=== PATIENT | male | born 1965 | race Caucasian/White ===

== ENCOUNTER 2020-05-04 08:45 | Outpatient (REF) | payer MEDICARE, MEDICAID, SELFPAY ==
--- NOTE | 2020-05-04 | XR_ITS ---
EXAMINATION: XR HIP, RIGHT XR HIP, LEFT CLINICAL INFORMATION: Bilateral hip pain. COMPARISON: None TECHNIQUE: Each hip is imaged in AP and lateral projections. There are 2 views on each side, total of 4 views. FINDINGS: There are bilateral hip replacements with bilateral longstem femoral component extending beyond the film [id number]. The visualized hardware appears intact. There is no fracture, dislocation, destructive process, or osteolysis. Surgical clips are present adjacent to the greater trochanters on each side. The soft tissue planes appear grossly symmetric. There are probable degenerative changes lumbosacral junction and borderline osteitis pubis. Bony pelvis otherwise unremarkable. XR/XR hip LT min 2V IMPRESSION: 1. Bilateral hip replacements. Visualized hardware intact. No osteolysis. No destructive process. 2. Degenerative changes lumbosacral spine. Borderline osteitis pubis.
--- NOTE | 2020-05-04 | US_ITS ---
EXAMINATION: US ABDOMEN COMPLETE CLINICAL INFORMATION: Abnormal results of liver function studies. COMPARISON: None TECHNIQUE: Real-time imaging of the abdominal viscera. FINDINGS: PANCREAS: Normal. ABDOMINAL AORTA: The proximal, mid, and distal segments are normal in caliber. INFERIOR VENA CAVA: Visualized portions are normal. LIVER: The liver is normal in size. The liver contour is normal. There is increased liver echogenicity with no focal lesion seen. There is no intrahepatic biliary duct dilatation seen. GALLBLADDER: Normal. The gallbladder is physiologically distended without evidence of stones, sludge, polyps, wall thickening, or pericholecystic fluid. COMMON BILE DUCT: Normal in caliber measuring 0.3 cm in diameter. RIGHT KIDNEY: Normal. No hydronephrosis. No renal calculi or focal parenchymal lesions. The kidney measures 11.1 cm in maximum dimension. LEFT KIDNEY: There or anechoic cysts. Upper pole cyst measures 1.4 x 1.3 x 1.3 cm and a midpole cyst measures 0.9 x 0.9 x 0.7 cm. No hydronephrosis or renal calculi. The kidney measures 11.1 cm in maximum dimension. SPLEEN: Normal. The spleen measures 11.7 cm in maximum dimension. FREE FLUID: None. US/US abdomen complete IMPRESSION: 1. Hepatic steatosis without focal lesion. 2. There are 2 left renal cysts. No echogenic renal calculi or hydronephrosis. 3. The rest of the abdominal ultrasound is unremarkable.
--- NOTE | 2020-05-04 | XR_ITS ---
EXAMINATION: XR HIP, RIGHT XR HIP, LEFT CLINICAL INFORMATION: Bilateral hip pain. COMPARISON: None TECHNIQUE: Each hip is imaged in AP and lateral projections. There are 2 views on each side, total of 4 views. FINDINGS: There are bilateral hip replacements with bilateral longstem femoral component extending beyond the film [id number]. The visualized hardware appears intact. There is no fracture, dislocation, destructive process, or osteolysis. Surgical clips are present adjacent to the greater trochanters on each side. The soft tissue planes appear grossly symmetric. There are probable degenerative changes lumbosacral junction and borderline osteitis pubis. Bony pelvis otherwise unremarkable. XR/XR hip RT min 2V IMPRESSION: 1. Bilateral hip replacements. Visualized hardware intact. No osteolysis. No destructive process. 2. Degenerative changes lumbosacral spine. Borderline osteitis pubis.
== END 2020-05-04 08:46 | disposition home or self-care (01) ==
LOC: HO.HMGCX 08:45
PROVIDERS: PCP Internal Medicine; Visit Provider Internal Medicine
DX: M25.551 Pain in right hip (principal); M25.552 Pain in left hip
CPT/HCPCS: 73502; 76700

== ENCOUNTER 2022-08-20 16:54 | Outpatient (REF) | payer MEDICARE, MEDICAID, SELFPAY ==
--- NOTE | ~2022-08-20 | XR_ITS ---
EXAMINATION: XR ANKLE, RIGHT CLINICAL INFORMATION: Right ankle pain COMPARISON: None available. TECHNIQUE: AP, lateral, and mortise views of the right ankle. FINDINGS: Moderate talocrural osteoarthritis. Resection of the fibula proximal to the lateral malleolus. No acute osseous abnormality. Diffuse vascular calcifications. XR/XR ankle RT min 3V IMPRESSION: Moderate talocrural osteoarthritis. No acute osseous abnormality.
== END 2022-08-20 16:55 | disposition home or self-care (01) ==
LOC: HO.HOSX 16:54
PROVIDERS: Visit Provider Physician Assistant
DX: Z13.89 Encounter for screening for other disorder (principal)

== ENCOUNTER → 2022-08-30 10:43 | Outpatient (BNVA) | payer MEDICARE, MEDICAID, SELFPAY | PROVIDERS: PCP Internal Medicine; Visit Provider Orthopaedic Surgery | DX: G95.9 Disease of spinal cord, unspecified (principal); R27.9 Unspecified lack of coordination | CPT/HCPCS: 73610; 99202 ==

== ENCOUNTER → 2022-10-05 11:23 | Outpatient (BNVA) | payer MEDICARE, MEDICAID, SELFPAY | PROVIDERS: PCP Internal Medicine; Visit Provider Orthopaedic Surgery | DX: G95.9 Disease of spinal cord, unspecified (principal); R27.9 Unspecified lack of coordination | CPT/HCPCS: 99202; 99212 ==

== ENCOUNTER 2022-10-08 14:42 | Outpatient (REF) | payer MEDICARE, MEDICAID, SELFPAY ==
--- NOTE | ~2022-10-08 | US_ITS ---
EXAMINATION: US VENOUS ULTRASOUND WITH DOPPLER LOWER EXTREMITY, RIGHT CLINICAL INFORMATION: Pain COMPARISON: None available. TECHNIQUE: Ultrasound of the deep veins is performed from the hip to the calf with compression sonography and color and pulse Doppler assessment. Spectral analysis with color-flow imaging is performed. FINDINGS: There is normal venous compression and respiratory variation and augmented flow. The visualized common femoral vein, superficial femoral vein, profunda femoral vein, popliteal vein, and popliteal veins shows no evidence of deep venous thrombosis. Peroneal veins not well visualized. There is no significant popliteal fossa cyst. US/US venous duplex LE RT IMPRESSION: No DVT demonstrated in the right lower extremity. Peroneal veins not well visualized.
== END 2022-10-08 14:43 | disposition home or self-care (01) ==
LOC: HO.US 14:42
PROVIDERS: PCP Internal Medicine; Visit Provider Internal Medicine
DX: R60.0 Localized edema (principal)
CPT/HCPCS: 93971

== ENCOUNTER 2022-10-12 15:12 | Outpatient (REF) | payer MEDICARE, MEDICAID, SELFPAY ==
--- NOTE | ~2022-10-12 | CT_ITS ---
EXAMINATION: CT CERVICAL SPINE WITHOUT CONTRAST CLINICAL INFORMATION: Disease of the spinal cord. COMPARISON: CT scan of the cervical spine dated 02/19/2009. TECHNIQUE: Multiple axial images of the cervical spine were obtained without the administration of intravenous contrast. Coronal and sagittal reformatted images were obtained. This CT examination was performed using dose optimization techniques as appropriate, variously including the following: *Automated exposure control *Adjustment of mA and/or kV according to patient size (this includes techniques or standardized protocols for targeted exams where dose is matched to indication/reason for exam; i.e. extremities or head) *Use of iterative reconstruction technique DLP: 469 mGy-cm FINDINGS: Mild to moderate multilevel degenerative disc disease is seen most pronounced at C4-5 and C6-7. Osseous fusion of C5 and C6 is seen without acute abnormality. The vertebral bodies and odontoid processes are intact. Mild odontoid are particular degenerative changes are seen. The neural foramina are patent. Mild bilateral facet nephropathy is seen. The spinous processes are intact. Incidental elongated styloid processes are noted. The cervical soft tissues are unremarkable. Mild to moderate atherosclerosis at the level the carotid bulbs bilaterally. No lymphadenopathy. The visualized thyroid gland is unremarkable. Minimal visualization of the lung apices with pleural thickening and scarring. CT/CT cervical spine wo IV con IMPRESSION: Mild to moderate multilevel degenerative changes without acute abnormality. Degenerative changes have increased since the 2008 study.
== END 2022-10-12 15:13 | disposition home or self-care (01) ==
LOC: HO.CT 15:12
PROVIDERS: PCP Internal Medicine; Visit Provider Physician Assistant
DX: G95.9 Disease of spinal cord, unspecified (principal)
CPT/HCPCS: 72125

== ENCOUNTER 2022-10-16 06:00 | Inpatient (IN) | payer MEDICARE, MEDICAID, SELFPAY ==
--- NOTE | 2022-10-15 13:38 | HO.ANESPROP2 ---
Documented by User: Una Noe NP 10/15/22 13:41 HPI - Anesthesia Eval Consult details Narrative: 57yo M for C3-4,C4-5 Ant Cerv Discectomy w/ fusion PCP eval 10/12/22 - benefits of surgery outweigh risks - Case reviewed with Dr Bryant and Dr Waqas. VO for eval DOS. PMFSH Active Problems Active Problems: All Active Problems (Updated 10/05/22 @ 13:46 by ITZEL Burch) Swelling of lower leg (Acute) Cervical myelopathy (Acute) Unspecified lack of coordination (Acute) Lumbar radiculopathy (Acute) Past Medical History Medical History (Updated 10/16/22 @ 15:48 by Judson Wick MD) Diabetes ETOH abuse Fusion of spine, cervical region High cholesterol HTN (hypertension) Hyperlipidemia associated with type 2 diabetes mellitus Spinal cord injury, cervical region Type 2 diabetes mellitus Urinary incontinence Surgical History Surgical History History of back surgery Hx of hand surgery Hx of total hip arthroplasty Social History Social History (Updated 08/30/22 @ 10:54 by Nolvia Barnes CMA) Household Members: Significant Other Housing: Apartment Do you presently have visiting nurse or other home services: No Alcohol intake: current Alcohol intake frequency: holidays/special occasions only Patient Tobacco Use Status: Former Tobacco user Quit Date: 25 yrs ago Tobacco use type: Cigarette Years Smoked: 20 Use of substances other than those prescribed or required for medical reasons: No Have you been hit, kicked, punched, or otherwise hurt by someone within the past year? If so, by whom?: No Do you feel safe in your current relationship?: Yes Is there a partner from a previous relationship who is making you feel unsafe now?: No Are you made to feel afraid or neglected: No Are you DNR?: No Advance Directives: No Advance Directives Information Provided: Yes Do you have thoughts of harming others: None Recently lost weight without trying: No Nutrition Risks: Diabetes new onset/Uncontrolled Current occupational status: unemployed Meds Allergies Allergy/AdvReac Type Severity Reaction Status Date / Time Seasonal Allergy Mild Sneezing Uncoded 10/16/22 06:12 Home Medications Medication Instructions Recorded Confirmed Last Taken Type atorvastatin 80 mg tablet 80 mg PO BEDTIME 10/16/22 10/16/22 Unknown History cholecalciferol (vitamin D3) 25 25 mcg PO DAILY 10/16/22 10/16/22 Unknown History mcg (1,000 unit) tablet dulaglutide 0.75 mg/0.5 mL 0.75 mg subcut QWEEK 10/16/22 10/16/22 Unknown History subcutaneous pen injector (Trulicity) lisinopril 20 mg tablet 20 mg PO DAILY 10/16/22 10/16/22 Unknown History metformin 1,000 mg tablet 1,000 mg PO BID 10/16/22 10/16/22 Unknown History Exam Exam Date and Time: October 15, 2022 1338 Narrative Narrative: US venous duplex LE RT 10/2022 IMPRESSION: No DVT demonstrated in the right lower extremity. Peroneal veins not well visualized. CT cervical spine wo IV con 10/2022 IMPRESSION: Mild to moderate multilevel degenerative changes without acute abnormality. Degenerative changes have increased since the 2008 study. Documented by User: Corona Bishop MD 10/16/22 17:22 HPI - Anesthesia Eval Consult details Narrative: 57yo M for C3-4,C4-5 Ant Cerv Discectomy w/ fusion PCP eval 10/12/22 - benefits of surgery outweigh risks - Case reviewed with Dr Bryant and Dr Bishop. OK for eval DOS. no Chest pain , poorly controlled DM neck pain with radiation to b/l UE with tingling and numbness left greater than right , progressive, balance problem and b/l LE weakness . ETOH , 6 packs a day PMFSH Past Medical History Medical History (Updated 10/16/22 @ 15:48 by Judson Wick MD) Diabetes ETOH abuse Fusion of spine, cervical region High cholesterol HTN (hypertension) Hyperlipidemia associated with type 2 diabetes mellitus Spinal cord injury, cervical region Type 2 diabetes mellitus Urinary incontinence Functional capacity: uses cane/walker Family History Family history of problems with anesthesia: No Surgical History Surgical History History of back surgery Hx of hand surgery Hx of total hip arthroplasty History of Problems with Anesthesia: No Social History Social History (Updated 08/30/22 @ 10:54 by Nolvia Barnes CMA) Household Members: Significant Other Housing: Apartment Do you presently have visiting nurse or other home services: No Alcohol intake: current Alcohol intake frequency: holidays/special occasions only Patient Tobacco Use Status: Former Tobacco user Quit Date: 25 yrs ago Tobacco use type: Cigarette Years Smoked: 20 Use of substances other than those prescribed or required for medical reasons: No Have you been hit, kicked, punched, or otherwise hurt by someone within the past year? If so, by whom?: No Do you feel safe in your current relationship?: Yes Is there a partner from a previous relationship who is making you feel unsafe now?: No Are you made to feel afraid or neglected: No Are you DNR?: No Advance Directives: No Advance Directives Information Provided: Yes Do you have thoughts of harming others: None Recently lost weight without trying: No Nutrition Risks: Diabetes new onset/Uncontrolled Current occupational status: unemployed Meds Allergies Allergy/AdvReac Type Severity Reaction Status Date / Time Seasonal Allergy Mild Sneezing Uncoded 10/16/22 06:12 Home Medications Medication Instructions Recorded Confirmed Last Taken Type atorvastatin 80 mg tablet 80 mg PO BEDTIME 10/16/22 10/16/22 Unknown History cholecalciferol (vitamin D3) 25 25 mcg PO DAILY 10/16/22 10/16/22 Unknown History mcg (1,000 unit) tablet dulaglutide 0.75 mg/0.5 mL 0.75 mg subcut QWEEK 10/16/22 10/16/22 Unknown History subcutaneous pen injector (Trulicity) lisinopril 20 mg tablet 20 mg PO DAILY 10/16/22 10/16/22 Unknown History metformin 1,000 mg tablet 1,000 mg PO BID 10/16/22 10/16/22 Unknown History Exam Airway Mallampati Class: IV Neck ROM: Limited Loose/Missing/Broken Teeth: Yes Assessment and Plan Assessment Anesthesia Assessment: Anesthesia Plan Discussed and Chart Reviewed Final Anesthetic Review Family History of Problems with Anesthesia: No History of Problems with Anesthesia: No NPO: Yes ASA Class: III (urgent) Final Preanesthetic Review: Meds/Allgs Chart Reviewed, Consent Obtained/Reviewed and Anes Risks/Benef Reviewed Patient Risk: High Procedure Risk: Intermediate Anesthetic Plan Anesthetic Plan: GA Disposition: Inp. Admit - ICU
[2022-10-16] VITALS (19 sets, daily range): BP systolic 107–157; BP diastolic 47–88; PULSE 71–100; RESP 12–21; TEMP 36.3–37.2; O2SAT 94–98; BMI 28.5
--- NOTE | ~2022-10-16 | XR_ITS ---
EXAMINATION: XR ANKLE, RIGHT CLINICAL INFORMATION: Right ankle pain. COMPARISON: Right ankle 08/30/2022 TECHNIQUE: AP, lateral, and mortise views of the right ankle. FINDINGS: There is resection of fibula except for the distal segment. There is minimal reduction in the tibiotalar joint and talar crural space consistent with degenerative arthritic changes. There is a small retrocalcaneal enthesophyte. The subtalar joint appears preserved. No acute fracture or dislocation seen. There is bimalleolar soft tissue swelling. XR/XR ankle RT 2V IMPRESSION: Bimalleolar soft tissue swelling likely edema from sprain. No visible fracture or dislocation. Mild degenerative changes talotibial joint Except for soft tissue is no major change from 08/30/2022.
--- NOTE | ~2022-10-16 | FL_ITS ---
EXAMINATION: XR FLUOROSCOPY WITH IMAGES CLINICAL INFORMATION: Anterior cervical discectomy and fusion C3 through C5. COMPARISON: CT cervical spine of 10/12/2022. TECHNIQUE: Fluoroscopy Supervised By: Dr. Elmore. Fluoroscopy Time: 0.4 minutes. Cumulative Dose: 10.5 mGy. DAP: 2.36 Gy-cm2. Images: 2. FINDINGS: Intraoperative fluoroscopy provided demonstrating cervical spine procedure with hardware placement. Levels of procedure with limited evaluation on the 2 provided images. FL/FL guidance in OR IMPRESSION: Intraoperative fluoroscopy for orthopedic procedure.
--- NOTE | ~2022-10-16 | XR_ITS ---
EXAMINATION: XR CERVICAL SPINE CLINICAL INFORMATION: Status post corpectomy and fusion. COMPARISON: CT cervical spine 10/12/2022. TECHNIQUE: 3 views of the cervical spine were obtained. FINDINGS: There is mild straightening of cervical lordosis. There is C4 corpectomy with a metallic cage between the C3 and C5 vertebra, stabilized with a ventral plate and screws in satisfactory alignment. In addition there is a zero profile prosthesis at the C5-C6 disc level. There is osseous C5-C6 fusion. No lytic or sclerotic process seen. XR/XR cervical spine 2V IMPRESSION: 1. C4 corpectomy with metallic cage between the C3 and C5 vertebra stabilized with ventral plate and screws. In addition there is a zero profile prosthesis at to C6 and C7 disc level. 2. No change in the bony fusion of C5 and C6 vertebra.
[2022-10-16] MEDS: Gabapentin 300 MG CAPSULE PO (06:35)
[2022-10-16] MEDS: methocarbamoL 750 MG TABLET PO (06:36)
[2022-10-16 06:49] LABS: Hematocrit 40.4 % (42.0-52.0); Hemoglobin 13.9 g/dl (14.0-18.0); Mean Corpuscular HGB Conc 34.4 g/dl (31.0-36.0); Mean Corpuscular Hemoglobin 31.6 pg (27.0-33.0); Mean Corpuscular Volume 91.8 fL (80.0-98.0); Mean Platelet Volume 9.9 fL (9.4-12.4); Platelet Count 179 X10*3/uL (160-400); Red Cell Distribution Width 12.6 % (11.0-16.0); White Blood Count 4.7 X10*3/uL (4.8-10.8)
[2022-10-16] MEDS: Lactated Ringers 1,000 ML 100 ML IVCONT (06:50)
[2022-10-16 06:53] LABS: Partial Thromboplastin Time 32.7 SEC (26.0-36.4)
[2022-10-16 07:06] LABS: Glucose, Whole Blood 276 mg/dL (60-115)
--- NOTE | 2022-10-16 07:30 | PHA.MEDREC ---
Pharmacy Consult ? Medication Reconciliation Pharmacy has completed the medication reconciliation. Completed by RN, reviewed by pharmacy
[2022-10-16 11:45] LABS: Alanine Aminotransferase 25 U/L (0-40); Alkaline Phosphatase 73 U/L (39-117); Anion Gap 11 (12-20); Aspartate Amino Transferase 19 U/L (5-37); Bilirubin Total 0.7 mg/dL (0.0-1.0); Blood Urea Nitrogen 12 mg/dL (9-16); Calcium 9.4 mg/dL (8.4-10.2); Carbon Dioxide 28 mmol/L (22-29); Chloride 102 mmol/L (96-108); Creatinine Clr Calc Pharmacy 110.8; Estimated Glomerular Filt Rate > 60; Glucose Fasting 284 mg/dL (60-99); Potassium 4.4 mmol/L (3.3-5.1); Sodium 137 mmol/L (135-145); Total Protein 6.6 g/dL (6.5-8.0)
[2022-10-16] MEDS: HYDROmorphone HCl 0.5 MG/0.5 ML SYRINGE 0.25 MG IVPUSH ×2 (13:13→23:29)
[2022-10-16] MEDS: 0.9 % Sodium Chloride 1,000 ML 75 ML IVCONT ×2 (15:09→23:28)
[2022-10-16] MEDS: ceFAZolin Sodium/Dextrose,Iso 2 GM/50 ML PIGGYBACK IV ×2 (15:12→20:56)
--- NOTE | 2022-10-16 15:43 | P.CONCC_ITS ---
History of Present Illness Data of Consult Service Date: 10/16/22 Requesting physician: Hudson Elmore Primary Care Provider: Jonathon Ko MD [facility] Reason for consult: Postop cervical spinal cord decompression 57-year-old nonsmoker but he is a drinker with type 2 diabetes currently on insulin and metformin as well as being a hypertensive and hyperlipidemic who had a cervical myelopathy and underwent decompressive surgery today currently wearing a hard collar but he is awake and alert with good mobility excellent bilateral leg raising and dorsiflexion and plantar flexion intact with good flexor and extensor strength of the upper extremities as well Bedside echo demonstrating normal LV and RV size and function no atrial dilatation no primary valve or pericardial disease actually has class 1 function Abdomen soft no organomegaly Excellent bilateral peripheral pulses with no acrocyanosis no edema Review of Systems Review of Systems: Yes all other systems are reviewed and are negative [facility] Past Medical History Medical History (Updated 10/16/22 @ 15:48 by Judson Wick MD) Diabetes ETOH abuse Fusion of spine, cervical region High cholesterol HTN (hypertension) Hyperlipidemia associated with type 2 diabetes mellitus Spinal cord injury, cervical region Type 2 diabetes mellitus Urinary incontinence Functional capacity: uses cane/walker Surgical History Surgical History History of back surgery Hx of hand surgery Hx of total hip arthroplasty Social History Social History (Updated 08/30/22 @ 10:54 by Nolvia Barnes CMA) Household Members: Significant Other Housing: Apartment Do you presently have visiting nurse or other home services: No Alcohol intake: current Alcohol intake frequency: holidays/special occasions only Patient Tobacco Use Status: Former Tobacco user Quit Date: 25 yrs ago Tobacco use type: Cigarette Years Smoked: 20 Use of substances other than those prescribed or required for medical reasons: No Have you been hit, kicked, punched, or otherwise hurt by someone within the past year? If so, by whom?: No Do you feel safe in your current relationship?: Yes Is there a partner from a previous relationship who is making you feel unsafe now?: No Are you made to feel afraid or neglected: No Are you DNR?: No Advance Directives: No Advance Directives Information Provided: Yes Do you have thoughts of harming others: None Recently lost weight without trying: No Nutrition Risks: Diabetes new onset/Uncontrolled Current occupational status: unemployed Meds Allergies Allergy/AdvReac Type Severity Reaction Status Date / Time Seasonal Allergy Mild Sneezing Uncoded 10/16/22 06:12 Active Medications: Current Medications Atorvastatin Calcium (Atorvastatin Calcium 80 Mg Tablet) 80 mg PO BEDTIME [facility] Docusate Sodium (Docusate Sodium 100 Mg Capsule) 100 mg PO BID [facility] Fentanyl (Fentanyl Citrate/Pf 100 Mcg/2 Ml Vial) 25 mcg IVPUSH Q5M PRN; Protocol PRN Reason: Pain, Moderate(Pain Scale 4-6) Hydromorphone HCl (Hydromorphone Hcl 1 Mg/Ml Syringe) 1 mg IVPUSH Q3H PRN; Protocol PRN Reason: Pain, Severe (Pain Scale 7-10) Hydromorphone HCl (Hydromorphone Hcl 0.5 Mg/0.5 Ml Syringe) 0.25 mg IVPUSH Q5M PRN; Protocol PRN Reason: Pain, Severe (Pain Scale 7-10) Last Admin: 10/16/22 13:13 Dose: 0.25 mg Sodium Chloride (Ns) 1,000 mls @ 75 mls/hr IVCONT .[id number] [facility] Last Admin: 10/16/22 15:09 Dose: 75 mls/hr Cefazolin Sodium/Dextrose (Ancef) 2 gm in 50 mls @ 100 mls/hr IV Q6H [facility] Stop: 10/17/22 02:29 Last Admin: 10/16/22 15:12 Dose: 100 mls/hr Lisinopril (Lisinopril 20 Mg Tablet) 20 mg PO DAILY [facility]; Protocol Metformin HCl (Metformin Hcl 1,000 Mg Tablet) 1,000 mg PO BID [facility] Non-Formulary Medication (Dulaglutide [Trulicity]) 0.75 mg SUBCUT QWEEK [facility] Ondansetron HCl (Ondansetron Hcl 4 Mg/2 Ml Vial) 4 mg IVPUSH Q6H PRN PRN Reason: Nausea and Vomiting Oxycodone HCl (Oxycodone Hcl Immed Release 5 Mg Tablet) 5 mg PO Q4H PRN PRN Reason: Pain, Moderate(Pain Scale 4-6) Oxycodone HCl (Oxycodone Hcl Immed Release 5 Mg Tablet) 10 mg PO Q4H PRN PRN Reason: Pain, Severe (Pain Scale 7-10) Vitamin D (Cholecalciferol (Vitamin D3) 25 Mcg Tablet) 25 mcg PO DAILY [facility] Home Medications Medication Instructions Recorded Confirmed Last Taken Type atorvastatin 80 mg tablet 80 mg PO BEDTIME 10/16/22 10/16/22 Unknown History cholecalciferol (vitamin D3) 25 25 mcg PO DAILY 10/16/22 10/16/22 Unknown History mcg (1,000 unit) tablet dulaglutide 0.75 mg/0.5 mL 0.75 mg subcut QWEEK 10/16/22 10/16/22 Unknown History subcutaneous pen injector (Trulicity) lisinopril 20 mg tablet 20 mg PO DAILY 10/16/22 10/16/22 Unknown History metformin 1,000 mg tablet 1,000 mg PO BID 10/16/22 10/16/22 Unknown History Physical Exam Vital Signs: Vital Signs: Last Vital Signs Temp 98 F 10/16/22 14:08 Pulse 71 10/16/22 15:00 Resp 13 10/16/22 15:00 BP 119/63 10/16/22 15:00 Pulse Ox 98 10/16/22 15:00 O2 Del Method Nasal Cannula 10/16/22 15:00 O2 Flow Rate 3 10/16/22 15:00 BMI result Body Mass Index 28.5 In examination including his neurological is is symmetric with good demonstrated strength in upper and lower extremities Bedside echo to define cardiac function absolutely class 1 Lungs clear bilaterally no adventitious sounds Abdomen soft no organomegaly No peripheral edema good bilateral color and good bilateral peripheral pulses Results Labs 10/16/22 06:37 10/16/22 06:37 Labs: Short CBC 10/16/22 Range/Units 06:37 WBC 4.7 L (4.8-10.8) X10*3/uL Hgb 13.9 L (14.0-18.0) g/dl Hct 40.4 L (42.0-52.0) % Plt Count 179 (160-400) X10*3/uL BMP 10/16/22 06:37 Sodium 137 Potassium 4.4 Chloride 102 Carbon Dioxide 28 BUN 12 Creatinine 0.87 Calcium 9.4 Liver Function 10/16/22 Range/Units 06:37 Total Bilirubin 0.7 (0.0-1.0) mg/dL AST 19 (5-37) U/L ALT 25 (0-40) U/L Alkaline Phosphatase 73 (39-117) U/L Albumin 4.0 (3.5-5.0) g/dL Assessment and Plan (1) Type 2 diabetes mellitus: Status: Acute (2) Hyperlipidemia associated with type 2 diabetes mellitus: Status: Acute (3) Lumbar radiculopathy: Status: Acute (4) Unspecified lack of coordination: Status: Acute (5) Cervical myelopathy: Status: Acute (6) Swelling of lower leg: Status: Acute Plan Will place on a CIWA protocol clearly has no manifestation currently of any form of withdrawal and add has a good neurological result without complication and will follow his neurologic exam from this baseline forward Time Spent With Patient Time: Total time managing care of this patient today 35____ minutes.
[2022-10-16 16:26] LABS: Glucose, Whole Blood 272 mg/dL (60-115)
[2022-10-16] MEDS: oxyCODONE HCl Immed Release 5 MG TABLET PO (16:46)
--- NOTE | 2022-10-16 17:01 | W.PM.OPN ---
Operative Note Operative Note Date of Service: 10/16/22 Narrative: Preoperative Diagnosis: Progressive cervical myelopathy Postoperative diagnosis: Same Procedure: 1) C4 corpectomy; insertion expandable cage; anterior instrumentation C3-C5; local autograft; microscope 2) C6-C7 Anterior discectomy, arthrodesis and implantation cage ; C6-C7 anterior instrumentation ; local autograft; microscope Informed Consent was obtained for this operation. I have explained the nature, purpose and benefits of the operation. I have discussed the risks and benefit of the operation including possible complications or adverse events with patient/family. Alternative(s) were discussed with the patient with their relative benefits and risks as well as the consequences of not accepting the operation were included in obtaining consent. Surgeon: GIANNI NOWAK MD, PHD Procedure Assisted By: Zach Bolanos Description of Procedure: This 57-year-old male presented with progressive quadriparesis with the MRI showing severe spinal cord compression from C3-C5 and C6-C7. He had a previous C5-C6 fusion done in the past for traumatic spinal cord injury The procedure complications were explained. The patient was consented. The patient was brought to the operating room and endotracheally intubated. The patient was put in supine position with slight extension of the neck. Prep and drape was done followed by timeout. A mid cervical incision was made followed by opening of the platysma. The prevertebral fascia was reached following the natural planes while the physician assistant director of plant operations provided manual retraction. The prevertebral fascia was opened to expose the C3-4 and C4-5 disc space. A spinal needle was placed in the disk spaces to confirm the correct level with xray. The longus colli muscles were released bilaterally and a self retaining retractor was inserted. Two [place] pins were placed in the C3 and C5 vertebral bodies and distraction was give over the interspace. A C3-4 and C4-5 partial diskectomy was done. A Le[place]ell rongeur was used to perform a partial corpectomy and the bone was saved for autograft. The high-speed drill was used to complete the corpectomy until a thin layer of bone was left over the hypertrophied flavum ligament. The microscope was brought in A number 2. and 3 Kerrison were used to remove the posterior wall of the C4 vertebral body to complete the corpectomy. Hypertrophied flavum ligament was resected to decompress the spinal cord. Disc material and posterior osteophytes were resected from the C3-4 interspace and similar procedure was done at the C4-5 disc space to further decompress the spinal cord. A layer of scar tissue was seen over the dura most likely related to previous surgery. This layer was left insitu as it causes no compression. The endplates are prepared after which a 26 mm by 13 mm Chase expandable cage with 5 degree lordosis, was inserted into the corpectomy defect. The Smith pins were removed. Finally a 32 mm plate was secured from C3-C5 with 4 x 14 mm screws. This marked 1st prior to procedure. Accordingly, the C6-C7 disc space was identified and localized with x-ray. The longus colli muscles were released bilaterally and the self-retaining retractor was reinserted. [place] pins were placed in the body of C6 and C7 distraction was given over the interspace. The discectomy was completed toward the posterior annulus of the disc. The microscope was brought in. The remainder of the discectomy was completed. The posterior ligament was opened and resected to expose the underlying dura. A severely hypertrophied flavum ligament was resected. Again a thin layer of fibrous tissue was seen over the dura. Osteophytes were resected from the body of C6 and C7 to further decompress the spinal cord and saved for autograft. Bilateral foraminotomies were done. The endplates were prepared after which a 6 mm cage filled with autograft was inserted into the disc space. A separate attached plate was locked down with 2 x 14 mm screws as anterior instrumentation. Final x-rays in AP and lateral projection showed a satisfactory position of the corpectomy cage, C6-C7 cage and anterior instrumentation at C3-C5 and C6-C7. The physician assistant director of plant operations took over. The [place] pins was removed. Hemostasis was done. He closed the incision in 2 layers with a 3-0 Vicryl. Steri-Strips used to approximate incision. An OpSite with Tegaderm was used to cover the incision. All sponge and needle counts were correct. Patient was extubated and transported in stable is to recovery room. Anesthesia: General Estimated Blood Loss (ml): 50 mL Duration of Surgery: 4 hours Postoperative Plan: Admit to ICU for monitoring Complications: None
[2022-10-16] MEDS: Insulin Lispro 100 UNIT/ML 3 ML VIAL 6 UNIT SUBCUT (17:26)
[2022-10-16] MEDS: oxyCODONE HCl Immed Release 5 MG TABLET 10 MG PO (19:17)
[2022-10-16] MEDS: Calcium Carbonate 750 MG TAB.CHEW PO (19:36)
[2022-10-16] MEDS: metFORMIN HCl 1,000 MG TABLET 1000 MG PO (19:37)
[2022-10-16] MEDS: Docusate Sodium 100 MG CAPSULE PO (19:37)
[2022-10-16] MEDS: Atorvastatin Calcium 80 MG TABLET PO (19:37)
[2022-10-16 20:05] LABS: Glucose, Whole Blood 315 mg/dL (60-115)
[2022-10-16] MEDS: Insulin Lispro 100 UNIT/ML 3 ML VIAL SUBCUT (20:56)
[2022-10-17] VITALS (14 sets, daily range): BP systolic 112–147; BP diastolic 54–109; PULSE 77–97; RESP 12–20; TEMP 36.4–36.9; O2SAT 94–98; BMI 28.8
--- NOTE | 2022-10-17 00:34 | PC.NURSE ---
Addendum entered by Rusty Edmonds RN 10/17/22 04:33: ativan 0.5mg iv x1 per icu wheel and pinion inspector for patient c/o of inability to sleep....restful/dozed after receipt....alert..oriented x3 this am...cohn...raises legs up off bed to command w/o difficulty...oxycodone this am for c/o of neck pain with relief..vss. Original Note: CARE ASSUMED 23:15..AWAKE..ALERT..ORIENTED X3..SPEECH CLEAR...COHN WITH GOOD STRENGTH...DRINKING FLUIDS W/O DIFFICULTY...GOOD CO-ORDINATION AND DEXTERITY...VOIDED YELLOW URINE IN URINAL..ABLE TO UTILIZE CELL-PHONE...C/O 6-12/17 NECK PAIN AT HS...MEDICATED WITH PRN DILAUDID WITH REPORTED RELIEF..HARD COLLAR AT BEDSIDE IF NEEDED FOR OOB..REPOSITIONS SELF IN BED AD-MOOKIE..NSR..NO ECTOPU...VSS...NECK DRESSING DRY/INTACT
[2022-10-17] MEDS: LORazepam 2 MG/ML VIAL 0.5 MG IVPUSH (01:11)
[2022-10-17] MEDS: ceFAZolin Sodium/Dextrose,Iso 2 GM/50 ML PIGGYBACK IV (01:16)
[2022-10-17] MEDS: oxyCODONE HCl Immed Release 5 MG TABLET 10 MG PO ×3 (03:38→19:45)
[2022-10-17 04:32] LABS: MANUAL DIFF FLAG NO
[2022-10-17 04:34] LABS: Basophils Percent Auto 0.3 % (0-2); Eosinophils Percent Auto 0.1 % (0-4); Hematocrit 34.9 % (42.0-52.0); Hemoglobin 11.8 g/dl (14.0-18.0); Imm Gran Abs Auto 0.01 X10*3/uL (0.00-0.03); Imm Gran Pct Auto 0.1 % (0.0-0.4); Lymphocytes Absolute Auto 1.8 X10*3/uL (1.2-4.9); Lymphocytes Percent Auto 25.7 % (20-40); Mean Corpuscular HGB Conc 33.8 g/dl (31.0-36.0); Mean Corpuscular Hemoglobin 31.8 pg (27.0-33.0); Mean Corpuscular Volume 94.1 fL (80.0-98.0); Mean Platelet Volume 10.2 fL (9.4-12.4); Monocytes Absolute Auto 0.7 X10*3/uL (0.1-1.2); Monocytes Percent Auto 9.1 % (2-11); Neutrophils Absolute Auto 4.6 x10*3/uL (2.0-8.3); Neutrophils Percent Auto 64.7 % (45-73); Platelet Count 178 X10*3/uL (160-400); Red Blood Count 3.71 X10*6/uL (4.60-5.80); Red Cell Distribution Width 12.9 % (11.0-16.0); White Blood Count 7.2 X10*3/uL (4.8-10.8)
[2022-10-17 04:49] LABS: Albumin Level 3.6 g/dL (3.5-5.0); Anion Gap 10 (12-20); Blood Urea Nitrogen 16 mg/dL (9-16); Carbon Dioxide 26 mmol/L (22-29); Chloride 104 mmol/L (96-108); Estimated Glomerular Filt Rate > 60; Glucose Random 281 mg/dL (60-115); Phosphorus 2.8 mg/dL (2.7-4.5); Sodium 136 mmol/L (135-145)
[2022-10-17] MEDS: HYDROmorphone HCl 1 MG/ML SYRINGE IVPUSH (06:20)
--- NOTE | 2022-10-17 07:01 | HO.POSTANES ---
Post Anesthesia Evaluation Post Anesthesia Evaluation Vital Signs: Vital Signs Temp Pulse Resp BP Pulse Ox O2 Del Method 10/17/22 06:00 88 18 120/66 95 Room Air 10/17/22 05:00 88 16 115/68 96 Room Air 10/17/22 03:00 82 16 117/54 L 96 Room Air 10/17/22 02:00 90 16 112/58 L 95 Room Air 10/16/22 23:47 97.9 F 10/17/22 04:00 97.6 F 97 12 133/66 98 Room Air 10/17/22 01:00 88 13 120/64 94 Room Air 10/17/22 00:00 87 18 131/65 98 Room Air 10/16/22 23:00 86 15 157/88 H 97 Room Air 10/16/22 22:00 85 21 H 127/65 94 Room Air 10/16/22 21:00 96 21 H 121/73 95 Room Air 10/16/22 20:00 98.9 F 98 19 131/65 Room Air Anesthesia: General Endotracheal-GETA Mental Status: Awake Pain Control: Satisfactory Nausea/Vomiting: None Hydration: Adequate Anesthesia-Related Issues: No Anes. Related Issues
[2022-10-17 08:19] LABS: Glucose, Whole Blood 260 mg/dL (60-115)
[2022-10-17] MEDS: Insulin Lispro 100 UNIT/ML 3 ML VIAL SUBCUT ×4 (08:41→20:29)
[2022-10-17] MEDS: lisinopriL 20 MG TABLET PO (08:41)
[2022-10-17] MEDS: Docusate Sodium 100 MG CAPSULE PO ×2 (08:41→20:29)
[2022-10-17] MEDS: metFORMIN HCl 1,000 MG TABLET 1000 MG PO ×2 (08:41→20:29)
[2022-10-17] MEDS: Cholecalciferol (Vitamin D3) 25 MCG TABLET PO (08:41)
--- NOTE | 2022-10-17 09:04 | MHC.CM.PN ---
IMM DELIVERED PT LIVES WITH S/O IN A FIRST FLOOR APT. NO STAIRS. 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 NO COVID VAX, NO HCP ( WILL THINK ABOUT IT BUT NOT RIGHT NOW ) PCP DR. Keira OLMEDO AT [facility]. DP: HOME, NO SERVICES ANTICIPATED. FRIEND WILL TRANSPORT HOME. CM WILL CONTINUE TO FOLLOW FOR DC PLAN.
[2022-10-17] MEDS: oxyCODONE HCl Immed Release 5 MG TABLET PO (11:02)
[2022-10-17 11:43] LABS: Glucose, Whole Blood 287 mg/dL (60-115)
[2022-10-17 16:05] LABS: Glucose, Whole Blood 256 mg/dL (60-115)
[2022-10-17 19:55] LABS: Glucose, Whole Blood 293 mg/dL (60-115)
[2022-10-17] MEDS: Atorvastatin Calcium 80 MG TABLET PO (20:29)
[2022-10-17] MEDS: Melatonin 3 MG TABLET 6 MG PO (22:00)
[2022-10-18] VITALS (7 sets, daily range): BP systolic 119–162; BP diastolic 66–79; PULSE 78–88; RESP 16–20; TEMP 36.5–37.3; O2SAT 94–99
[2022-10-18] MEDS: oxyCODONE HCl Immed Release 5 MG TABLET 10 MG PO ×5 (00:38→18:33)
[2022-10-18] MEDS: diphenhydrAMINE HCL 50 MG/ML VIAL IVPUSH ×2 (01:04→20:39)
--- NOTE | 2022-10-18 07:17 | PC.NURSE ---
At 00:00 patient started to complain of increasing pain, swelling and increase in difficulty swallowing at the site of their surgical incision that is to the right of their neck. Patient also complains of a 8/10 headache. MD notified and came to lay eyes on the patient. No further orders placed.
[2022-10-18 07:29] LABS: Glucose, Whole Blood 220 mg/dL (60-115)
[2022-10-18] MEDS: Cholecalciferol (Vitamin D3) 25 MCG TABLET PO (07:43)
[2022-10-18] MEDS: metFORMIN HCl 1,000 MG TABLET 1000 MG PO ×2 (07:43→20:24)
[2022-10-18] MEDS: lisinopriL 20 MG TABLET PO (07:43)
[2022-10-18] MEDS: oxyCODONE HCl Immed Release 5 MG TABLET PO ×3 (07:44→20:24)
[2022-10-18] MEDS: Docusate Sodium 100 MG CAPSULE PO ×2 (07:44→20:24)
[2022-10-18] MEDS: Insulin Lispro 100 UNIT/ML 3 ML VIAL SUBCUT ×4 (07:44→20:29)
--- NOTE | 2022-10-18 09:16 | MHC.CM.PN ---
PT is recommending Acute Rehab; CM will follow.
--- NOTE | 2022-10-18 09:38 | HO.NEURO.PN ---
Neurosurgery Operative Note Date of Service: 10/18/22 Narrative: Postop day 2. C4 corpectomy, C3-5 anterior plating, C6-7 anterior cervical diskectomy for severe cervical myelopathy patient reports he has had significant improvement in his leg strength since surgery, he was up walking around yesterday with a walker. The patient reports overnight that he developed right ankle pain from sleeping in an awkward position where he feels like his foot was probably twisted on the edge of the bed. There is no tingling or numbness in it, she is very sensitive to bear weight on. He is otherwise doing okay, does have some dysphagia but is able to take fluids. He will occasionally cough but is not aspirating. He is looking forward to going home if he can clear PT and OT. Afebrile, vital signs stable physical exam: Patient is awake alert oriented, Breathing comfortably seen at bedside with Dr. Elmore, I would rate his upper extremity strength is full, his proximal leg strength is still mildly weak and I would rate as 4-5 on the left and 4+ out of 5 on the right, but his distal lower extremity strength is full. His anterior neck dressing was removed, as incision underneath is clean and dry there is some mild soft swelling but no signs of hematoma or tension. He does have tenderness over the right ankle laterally, it is mildly swollen, no redness. blood sugars still consistently running in the mid 200s, on sliding scale impression: Postop day 2. C4 corpectomy, C3-5 anterior plating with C6-7 anterior cervical diskectomy and fusion, patient recovering nicely with significant improvement in his lower extremity function. However, this morning he noted right ankle pain after sleeping all quit the in the bed. He is a tall gentleman in the beds are short and he is feeling his foot was probably cramped in an awkward position. We will obtain an x-ray. Will have him continue to work PT and OT and hopefully we can discharge him later today. Continue out of bed with collar. Continue mechanical soft diet and ice chips as needed for throat irritation.
[2022-10-18 11:06] LABS: Glucose, Whole Blood 225 mg/dL (60-115)
--- NOTE | 2022-10-18 13:55 | MHC.CM.PN ---
Patient will dc to [facility] tomorrow at 1PM, via [facility]. Patient/MD/RN are aware of the dc plan. Imm addressed on 10/17/2022.
--- NOTE | 2022-10-18 14:37 | PC.NURSE ---
PA removed dressing to neck this AM and assessed surgical wound w/ MD. Upon assessment pt neck noted to be more swollen compared to yesterday along with his RLE. Pt c/o increased pain to R foot/ankle and neck. Surgeon informed, PA was informed afterwards. XRs obtained and PA assessed and spoke w/ pt at bedside. Informed PA pt is c/o difficulty swallowing around 1430 and feeling of anxiety. Pt was updated throughout the day and and given prn oxy w/ mild to moderate effect
[2022-10-18 16:12] LABS: Glucose, Whole Blood 209 mg/dL (60-115)
[2022-10-18 20:12] LABS: Glucose, Whole Blood 183 mg/dL (60-115)
[2022-10-18] MEDS: Atorvastatin Calcium 80 MG TABLET PO (20:24)
[2022-10-18] MEDS: Morphine Sulfate 2 MG/ML CARTRIDGE IVPUSH (21:38)
[2022-10-19] VITALS (7 sets, daily range): BP systolic 126–156; BP diastolic 65–83; PULSE 83–100; RESP 15–20; TEMP 36.6–37.7; O2SAT 95–99; BMI 29.0
[2022-10-19] MEDS: oxyCODONE HCl Immed Release 5 MG TABLET 10 MG PO ×5 (01:04→20:21)
[2022-10-19 07:15] LABS: Glucose, Whole Blood 222 mg/dL (60-115)
[2022-10-19] MEDS: Cholecalciferol (Vitamin D3) 25 MCG TABLET PO (07:51)
[2022-10-19] MEDS: Insulin Lispro 100 UNIT/ML 3 ML VIAL SUBCUT ×4 (07:51→20:22)
[2022-10-19] MEDS: Docusate Sodium 100 MG CAPSULE PO (07:51)
[2022-10-19] MEDS: metFORMIN HCl 1,000 MG TABLET 1000 MG PO ×2 (07:51→20:22)
[2022-10-19] MEDS: lisinopriL 20 MG TABLET PO (07:51)
--- NOTE | 2022-10-19 09:18 | HO.NEUROPN_ITS ---
Neurosurgery Operative Note Date of Service: 10/19/22 Narrative: Postop day 3. C4 corpectomy, C3-5 anterior plating, C6-7 anterior cervical diskectomy and fusion Patient reports his right ankle pain has become very severe. Overnight it has become almost intolerable just even have a blanket on it or have anyone attempt to touch his ankle. He is very upset about this. He was doing so well wing getting excited about going to rehab. He still continues to have dysphagia as expected. He is taking sips of water, and able to get some solid food down. He tells me he is voiding without any issues. Afebrile, vital signs stable Labs: His point of care sugars still remain the 200s at times Physical exam: Patient is awake alert oriented, he is uncomfortable just leaving attempting to sit in the bed. His ankle on the right-hand side remains swollen, slightly warm, very tender to touch, any attempts at manipulation and the patient is guarding. His gross motor strength from the standpoint of his arms and his legs outside of his right ankle is full. His anterior neck incisi on is clean and dry with some signs of ecchymosis small amount of swelling but no tension. Impression: Postop day 3. C4 corpectomy, C3-5 anterior plating C6-7 anterior cervical diskectomy and fusion for severe myelopathy. Preoperatively the patient was borderline paraplegic and now has regained significant function in his legs and his arms, and is doing quite well from that standpoint. He has some dysphagia which is expected with this surgery, but is taking some fluids and getting solid food down. He was due to go to rehab today, but the pain in the right ankle that he started experiencing yesterday has gotten severe and the ankle appears more swollen. We ruled him out for DVT before surgery because he had had some swelling in that right ankle. I suspect now it may be a gout flare due to his immobility. I am going to ask hospitalist team to see him. Hopefully the plan is still to build to get him out to rehab today. I will update Dr. Elmore on his status.
[2022-10-19 10:46] LABS: Uric Acid 2.9 mg/dL (3.4-7.0)
[2022-10-19 11:16] LABS: Glucose, Whole Blood 174 mg/dL (60-115)
[2022-10-19 11:31] LABS: COVID-19 Test Negative (Negative); IDNOW Serial# 08D9AD1C
[2022-10-19] MEDS: Morphine Sulfate 2 MG/ML CARTRIDGE IVPUSH (12:25)
[2022-10-19 12:49] LABS: Hematocrit 37.2 % (42.0-52.0); Hemoglobin 12.4 g/dl (14.0-18.0); Mean Corpuscular HGB Conc 33.3 g/dl (31.0-36.0); Mean Corpuscular Hemoglobin 31.3 pg (27.0-33.0); Mean Corpuscular Volume 93.9 fL (80.0-98.0); Mean Platelet Volume 9.7 fL (9.4-12.4); Platelet Count 177 X10*3/uL (160-400); Red Blood Count 3.96 X10*6/uL (4.60-5.80); Red Cell Distribution Width 12.8 % (11.0-16.0); White Blood Count 10.3 X10*3/uL (4.8-10.8)
[2022-10-19 12:59] LABS: Anion Gap 13 (12-20); Blood Urea Nitrogen 22 mg/dL (9-16); Calcium 9.5 mg/dL (8.4-10.2); Carbon Dioxide 27 mmol/L (22-29); Chloride 99 mmol/L (96-108); Creatinine Clr Calc Pharmacy 127.9; Estimated Glomerular Filt Rate > 60; Glucose Random 232 mg/dL (60-115); Sodium 135 mmol/L (135-145)
--- NOTE | 2022-10-19 13:11 | PM.CNOR ---
History of Present Illness HPI Consult date: 10/19/22 Chief complaint: cervical myelopathy Narrative: Patient is POD3 s/p C4 corpectomy; insertion expandable cage; anterior instrumentation C3-C5; local autograft; microscope and C6-C7 Anterior discectomy, arthrodesis and implantation cage ; C6-C7 anterior instrumentation ; local autograft; microscope. During his hospitalization he was abulatory with crutches and a walker. He has a history of bilateral fibular bone excision for femur bone grafting. He complains of pain and swelling. Review of Systems Review of Systems: Yes all other systems are reviewed and are negative [facility] Past Medical History Medical History (Updated 10/19/22 @ 13:16 by Mirta Torres PA-C) Diabetes ETOH abuse Fusion of spine, cervical region High cholesterol HTN (hypertension) Hyperlipidemia associated with type 2 diabetes mellitus Spinal cord injury, cervical region Type 2 diabetes mellitus Urinary incontinence Functional capacity: uses cane/walker Surgical History Surgical History History of back surgery Hx of hand surgery Hx of total hip arthroplasty Social History Social History (Updated 08/30/22 @ 10:54 by Nolvia Barnes CMA) Household Members: Significant Other Housing: Apartment Do you presently have visiting nurse or other home services: No Alcohol intake: current Alcohol intake frequency: holidays/special occasions only Patient Tobacco Use Status: Former Tobacco user Quit Date: 25 yrs ago Tobacco use type: Cigarette Years Smoked: 20 Use of substances other than those prescribed or required for medical reasons: No Currently Displaying Signs/Symptoms of Drug Intoxication Withdrawal: No Have you been hit, kicked, punched, or otherwise hurt by someone within the past year? If so, by whom?: No Do you feel safe in your current relationship?: Yes Is there a partner from a previous relationship who is making you feel unsafe now?: No Are you made to feel afraid or neglected: No Are you DNR?: No Advance Directives: No Advance Directives Information Provided: Yes Do you have thoughts of harming others: None Recently lost weight without trying: No Nutrition Risks: Diabetes new onset/Uncontrolled service: No Current occupational status: unemployed Meds Allergies Allergy/AdvReac Type Severity Reaction Status Date / Time Seasonal Allergy Mild Sneezing Uncoded 10/16/22 06:12 Active Medications: Current Medications Atorvastatin Calcium (Atorvastatin Calcium 80 Mg Tablet) 80 mg PO BEDTIME [facility] Last Admin: 10/18/22 20:24 Dose: 80 mg Docusate Sodium (Docusate Sodium 100 Mg Capsule) 100 mg PO BID [facility] Last Admin: 10/19/22 07:51 Dose: 100 mg Insulin Human Lispro (Insulin Lispro 100 Unit/Ml 3 Ml Vial) 0 unit SUBCUT QIDACHS [facility]; Protocol Last Admin: 10/19/22 12:02 Dose: 2 unit Lisinopril (Lisinopril 20 Mg Tablet) 20 mg PO DAILY [facility]; Protocol Last Admin: 10/19/22 07:51 Dose: 20 mg Metformin HCl (Metformin Hcl 1,000 Mg Tablet) 1,000 mg PO BID [facility] Last Admin: 10/19/22 07:51 Dose: 1,000 mg Ondansetron HCl (Ondansetron Hcl 4 Mg/2 Ml Vial) 4 mg IVPUSH Q6H PRN PRN Reason: Nausea and Vomiting Oxycodone HCl (Oxycodone Hcl Immed Release 5 Mg Tablet) 5 mg PO Q4H PRN PRN Reason: Pain, Moderate(Pain Scale 4-6) Last Admin: 10/18/22 20:24 Dose: 5 mg Oxycodone HCl (Oxycodone Hcl Immed Release 5 Mg Tablet) 10 mg PO Q4H PRN PRN Reason: Pain, Severe (Pain Scale 7-10) Last Admin: 10/19/22 12:07 Dose: 10 mg Vitamin D (Cholecalciferol (Vitamin D3) 25 Mcg Tablet) 25 mcg PO DAILY [facility] Last Admin: 10/19/22 07:51 Dose: 25 mcg Home Medications Medication Instructions Recorded Confirmed Last Taken Type atorvastatin 80 mg tablet 80 mg PO BEDTIME 10/16/22 10/16/22 Unknown History cholecalciferol (vitamin D3) 25 25 mcg PO DAILY 10/16/22 10/16/22 Unknown History mcg (1,000 unit) tablet dulaglutide 0.75 mg/0.5 mL 0.75 mg subcut QWEEK 10/16/22 10/16/22 Unknown History subcutaneous pen injector (Trulicity) lisinopril 20 mg tablet 20 mg PO DAILY 10/16/22 10/16/22 Unknown History metformin 1,000 mg tablet 1,000 mg PO BID 10/16/22 10/16/22 Unknown History Physical Exam Vital Signs: Vital Signs: Last Vital Signs Temp 98.7 F 10/19/22 11:47 Pulse 95 10/19/22 11:47 Resp 20 10/19/22 11:47 BP 156/81 H 10/19/22 11:47 Pulse Ox 99 10/19/22 11:47 O2 Del Method Room Air 10/19/22 11:47 O2 Flow Rate 3 10/16/22 18:00 BMI result Body Mass Index 29.0 Const: General: cooperative, healthy appearing and no acute distress Resp: Effort & Inspection: normal respiratory effort and able to speak in complete sentences Cardio: Rate: regular rate Peripheral pulses: Peripheral pulses 2+ throughout GI: Palpation (GI): Soft to palpation Skin: Lesions: no lesions Rashes: no rashes Extrem: Other: Right ankle lateral erythema and edema along the peroneal tendon distribution. Patient is able to passively tolerate dorsi/plantar flexion. No evidence of septic joint at this time. NVI. Results Labs 10/19/22 12:26 10/19/22 12:26 Labs: Abnormal lab results 10/18/22 10/18/22 10/19/22 Range/Units 16:08 19:59 07:05 RBC (4.60-5.80) X10*6/uL Hgb (14.0-18.0) g/dl Hct (42.0-52.0) % BUN (9-16) mg/dL POC Glucose 209 H 183 H 222 H (60-115) mg/dL Random Glucose (60-115) mg/dL Uric Acid (3.4-7.0) mg/dL 10/19/22 10/19/22 10/19/22 Range/Units 10:23 11:06 12:26 RBC 3.96 L (4.60-5.80) X10*6/uL Hgb 12.4 L (14.0-18.0) g/dl Hct 37.2 L (42.0-52.0) % BUN (9-16) mg/dL POC Glucose 174 H (60-115) mg/dL Random Glucose (60-115) mg/dL Uric Acid 2.9 L (3.4-7.0) mg/dL 10/19/22 Range/Units 12:26 RBC (4.60-5.80) X10*6/uL Hgb (14.0-18.0) g/dl Hct (42.0-52.0) % BUN 22 H (9-16) mg/dL POC Glucose (60-115) mg/dL Random Glucose 232 H (60-115) mg/dL Uric Acid (3.4-7.0) mg/dL H & H 10/16/22 10/17/22 10/19/22 Range/Units 06:37 04:11 12:26 Hgb 13.9 L 11.8 L 12.4 L (14.0-18.0) g/dl Hct 40.4 L 34.9 L 37.2 L (42.0-52.0) % Coagulation 10/16/22 Range/Units 06:37 INR 1.0 (0.9-1.1) All other labs normal. Assessment and Plan (1) Hyperlipidemia associated with type 2 diabetes mellitus: Status: Acute (2) Type 2 diabetes mellitus: Status: Acute (3) Cervical myelopathy: Status: Acute (4) Right ankle sprain: Status: Acute Dr. Mendoza was available to evaluate the patient with me. No evidence of septic joint at this time. Unlikely gout due to the presentation. Patient admits to being mostly nonambulatory prior to recent hospitalization due to spine complications. After beginning to ambulate is when his symptoms increased. Likely related to overuse injury. Would recommend blue night splint boot to assist with immobilization. Rest, ice, elevation. NSAIDs as appropriate. Pain management as appropriate. No additional orthopedic intervention needed at this time. Time Spent With Patient Time: Total time managing care of this patient today ____ minutes. Procedures Date of Service Date of Service: 10/19/22
--- NOTE | 2022-10-19 13:28 | MHC.CM.PN ---
[facility] IS UNABLE TO OFFER A LATE DAY BED TODAY TO PT BUT CAN OFFER A BED 10/20 AT 1 PM, TRANSPORT PRE-BOOKED VIA [facility]. PT, RN AND MD AWARE OF PLAN. IMM DELIVERED.
--- NOTE | 2022-10-19 13:29 | PM.DS ---
DS: Providers Provider Date of Service: 10/16/22 Date of discharge: 10/19/22 Primary care physician: Jonathon Ko MD Admitting clinician: Hudson Elmore Consults: 10/19/22 09:09 Consult to Hospitalist Routine Comment: Consulting Provider: Hospitalist Reason For Exam: right ankle pain, suspect gout flare up 10/19/22 09:17 Consult to Orthopedics Routine Consulting Provider: [facility] Reason for consultation: Ankle Sprain Attending physician on discharge: Hudson Elmore DS: Diagnosis Discharge Diagnosis (1) Hyperlipidemia associated with type 2 diabetes mellitus: Status: Acute (2) Type 2 diabetes mellitus: Status: Acute (3) Cervical myelopathy: Status: Acute (4) Right ankle sprain: Status: Acute DS: Summary Hospital Course Hospital Course: This is a 57-year-old gentleman with a history of diabetes, alcohol abuse, previous C5-6 noninstrumented anterior cervical fusion who presented to they office with progressive paraparesis and worsening signs of myelopathy found to have severe stenosis at C3-4, C4-5 and C6-7. He was admitted for C4 corpectomy, C3-5 anterior plating with fusion, C6-7 anterior cervical diskectomy and fusion. The patient underwent procedure without complication. He was brought to the PACU where he recovered from anesthesia in the brought to the ICU for night for monitoring. The patient had an uneventful 1st night, in fact he had significant improvement in his leg weakness and hand numbness after surgery. By postoperative day 1. He was doing well and was transferred out to the floor. He was tolerating a diet with some dysphagia. He was voiding without any issues. He started to work with PT and OT. He was unstable on his feet it was felt that he would need rehab. On his 2nd postoperative night, he experienced right ankle pain. The patient told us that he slept in an awkward position with his right foot turned at a weird angle because of how tall he is in a short the beds were. We did an x-ray to rule out a fracture and this was fine with only evidence of soft tissue swelling. He had at right lower extremity duplex to rule out DVT a few days before surgery so we do not feel the need to repeat that. We attempted to mobilize him again but he had a lot of difficulty bearing weight on the right leg because of the ankle pain. By postoperative day 3., the pain is swelling and gotten so significant that he was unable to even let us examine it. I asked for a hospitalist consult and then subsequent also an orthopedic consult was placed. We had a suspicion a could be gout but this was ruled out. Orthopedics thought that it was consistent with an ankle sprain and recommended a splint boot, anti-inflammatories, rest ice elevation etc.. His stay was otherwise unremarkable, he did have some elevated blood sugars in the mid 200s which we covered with sliding scale. The plan will be to have the patient discharged out to rehab today in stable condition. We gave him a hard collar to wear only when he is out of bed. Obviously he will not be able to bear much weight on the right foot until it is improved. Condition on discharge, afebrile, vital signs stable he is awake alert oriented, his gross motor examination reveals full strength of the bilateral upper extremities. Lower extremities is limited because of his right ankle pain, but his proximal strength is approximately 4/5 which is significantly improved compared to his preoperative. Distally his left leg is full strength. He has an anterior neck incision which is clean and dry, the dressing has been removed. There is some ecchymosis and a small amount of swelling under the skin but there is no signs of a tension hematoma. As mentioned his right ankle is very swollen and tender to touch or manipulation. The patient should follow-up in the Neurosurgery office in 3 weeks. He can be activity as tolerated with the boot on the right foot, and hard collar when he is out of bed. He can use crutches or walker would ever is easier for him. Status at Discharge Functional status at discharge: uses cane/walker Time Spent with Patient Time attestation: Total time managing care of this patient today ____ minutes. Discharge coordination time: Less than 30 minutes Quality: Safe Use of Opioids Does Pt have an Active Cancer Diagnosis on the Problem List?: No Quality: Stroke Does the patient have a stroke diagnosis?: No Physical Exam Vital Signs: Vital Signs: Last Vital Signs Temp 98.7 F 10/19/22 11:47 Pulse 95 10/19/22 11:47 Resp 20 10/19/22 11:47 BP 156/81 H 10/19/22 11:47 Pulse Ox 99 10/19/22 11:47 O2 Del Method Room Air 10/19/22 11:47 O2 Flow Rate 3 10/16/22 18:00 BMI result Body Mass Index 29.0 DS: Data Data Completed and Pending Labs on day of discharge: Laboratory Results - last 24 hr 10/18/22 10/18/22 10/19/22 16:08 19:59 07:05 WBC RBC Hgb Hct MCV MCH MCHC RDW Plt Count MPV Absolute Nucleated RBC Nucleated RBC % (auto) Sodium Potassium Chloride Carbon Dioxide Anion Gap BUN Creatinine Estim Creat Clear Calc Estimated GFR POC Glucose 209 H 183 H 222 H Random Glucose Uric Acid Calcium COVID-19 (ANNALISA) [employer] 10/19/22 10/19/22 10/19/22 10:23 10:25 11:06 WBC RBC Hgb Hct MCV MCH MCHC RDW Plt Count MPV Absolute Nucleated RBC Nucleated RBC % (auto) Sodium Potassium Chloride Carbon Dioxide Anion Gap BUN Creatinine Estim Creat Clear Calc Estimated GFR POC Glucose 174 H Random Glucose Uric Acid 2.9 L Calcium COVID-19 (ANNALISA) Negative [employer] See Note 10/19/22 10/19/22 12:26 12:26 WBC 10.3 RBC 3.96 L Hgb 12.4 L Hct 37.2 L MCV 93.9 MCH 31.3 MCHC 33.3 RDW 12.8 Plt Count 177 MPV 9.7 Absolute Nucleated RBC 0.000 Nucleated RBC % (auto) 0.0 Sodium 135 Potassium 4.0 Chloride 99 Carbon Dioxide 27 Anion Gap 13 BUN 22 H Creatinine 0.76 Estim Creat Clear Calc 127.9 Estimated GFR > 60 POC Glucose Random Glucose 232 H Uric Acid Calcium 9.5 COVID-19 (ANNALISA) [employer] Discharge Plan Discharge Patient Disposition: Xfer Other Referrals: [facility] [Other] - 1 Week Jonathon Ko MD [Primary Care Provider] - 1 Week Discharge Medications: New insulin lispro [Humalog U-100 Insulin] 100 unit/mL Solution See Protocol subcut QIDACHS Qty: 10 0RF Protocol: Insulin Correction Scale Less than or equal to 110 ---- Give (units): 0 111 to 150 Give (units): 0 151 to 200 Give (units): 2 201 to 250 Give (units): 4 251 to 300 Give (units): 6 301 to 350 Give (units): 8 Greater than 350 Give (units): 10 Call MD if Blood Glucose > : 350 docusate sodium 100 mg Capsule 100 mg PO BID Qty: 20 0RF oxycodone 5 mg Tablet 10 mg PO Q4H PRN (Reason: Pain, Severe (Pain Scale 7-10)) Qty: 30 0RF Rx Instructions: Partial Fill upon patient request. Continued atorvastatin 80 mg tablet 80 mg PO BEDTIME lisinopril 20 mg tablet 20 mg PO DAILY metformin 1,000 mg tablet 1,000 mg PO BID cholecalciferol (vitamin D3) 25 mcg (1,000 unit) tablet 25 mcg PO DAILY Trulicity 0.75 mg/0.5 mL pen injector 0.75 mg subcut QWEEK Discharge Orders: Discharge Order (Routine); Ordered 10/19/22 Ordered By: Zach Gonzalez Diet: Diabetic diet Activity on Discharge: hard collar when out of bed, splint on foot, walker or crutches as needed Activity Restrictions/Additional Instructions: HARD COLLAR WHEN OUT OF BED SPLINT BOOT TO RIGHT FOOT WHEN WALKING FOR PAIN, MAY REMOVE WHEN PAIN IMPROVED After your spinal surgery we ask you to observe the following restrictions/guidelines: Activity: It is normal to feel some discomfort as you increase your activity, but that will improve with time. We ask you avoid heavy lifting or acitivities that cause pain. As a general rule, 8lbs is a safe limit for lifting right after surgery. Walk as much as you feel comfortable but not to exhaustion. You will feel extra tired the first few days after surgery. Stay well hydrated. It is OK to walk up and down stairs You may return to driving when you are off narcotics (such as vicodin, oxycodone, dilaudid, etc), and you are back to normal functional capacity. If you have any concerns please check with office before driving. Return to work is specific to each patient and each surgery, so please speak with your doctor/PA at first follow up. Please bring paperwork such as FMLA at that time if you need it filled out. Medications: We will give you a short supply of narcotics after surgery (usually one weeks worth). If you need more please call the office but do not use more than prescribed. You will need to give our office 48 hours notice if you need narcotics refilled and we do not fill narcotics on weekends or evenings. If you are on a narcotic, it is a good idea to take a stool softener such as colace or senna to avoid constipation If you take blood thinner such as aspirin, Plavix, Coumadin, Effient, Eliquis etc for conditions such as Afib, DVT, Pulmonary embolus, coronary disease, stents etc please speak with your surgeon about specific details as to when you can resume these medications. You can resume NSAIDs on post op day 1 (eg: Motrin, Naproxen, etc). Follow up: Please call the office, , after surgery to arrange a 3 week follow up for wound check. Wound Care: You may remove your dressing on the first day after surgery. You may leave open to air. Please do not remove the steri strips underneath. they will fall off on their own in one week. IT IS NORMAL FOR THE WOUND TO OOZE OR BE BLOODY FOR A FEW DAYS AFTER SURGERY. IF THIS HAPPENS JUST PLACE NEW DRESSING OVER IT TO AVOID STAINING CLOTHES. You may shower on post op day # 1 We ask that you do not let the water soak the wound. If it does get wet, just towel dry lightly. Please do not scrub your incision or place any type of chemical/ointment on the wound. No tub baths, pools or jacuzzis for one month. If you have any leaking or redness from your wound, or fevers, please call office
[2022-10-19 13:31] LABS: Erythrocyte Sedimentation Rate 69 MM/HR (0-15)
--- NOTE | 2022-10-19 13:45 | HO.PM.IMCN ---
History of Present Illness Data of Consult Service Date: 10/19/22 Primary Care Provider: Jonathon Ko MD [facility] Reason for consult: Right ankle pain, swelling, redness Pt is a 57-year-old male with a PMH significant for insulin-dependent diabetes type 2, HTN, and HLD who is admitted to the hospital by Neurosurgery for C4 corpectomy, C3-5 anterior plating, C6-7 anterior cervical diskectomy and fusion. Postop day 3. Medical consult for right ankle pain. Pt reports sudden-onset right ankle pain and swelling that started yesterday when he awoke. Patient initially thought that he slept on it wrong due to being tall and sleeping in a shorter bed or that he had twisted it in the sheets. X-ray right ankle was obtained and showed by malleolar soft tissue swelling likely edema from sprain but no visible fracture or dislocation. This morning patient complains of increased pain, swelling, and redness to his ankle. Patient states he finds it intolerable to even have a blanket over his ankle let alone attempt to walk on it. Patient rates the pain at a 10/10 and says he has never felt anything like this before. Patient denies a history of gout. No fever, chills, nausea, vomiting, abdominal pain. Denies chest pain/pressure, palpitations. No shortness of breath. CBC, BMP, ESR, uric acid all ordered: Lab significant for ESR elevated at 69. Uric acid low at 2.9. No leukocytosis, normal renal function, electrolytes normal. Review of Systems Review of Systems: Right ankle erythema, swelling, pain Neck pain at site of surgical incisions Denies fever, chills, nausea, vomiting, diarrhea, abdominal pain No shortness of breath Denies chest pain/pressure, palpitations Yes all other systems are reviewed and are negative [facility] Medical History (Updated 10/19/22 @ 19:05 by ITZEL Bill) Diabetes ETOH abuse Fusion of spine, cervical region High cholesterol HTN (hypertension) Hyperlipidemia associated with type 2 diabetes mellitus Spinal cord injury, cervical region Type 2 diabetes mellitus Urinary incontinence Functional capacity: uses cane/walker Surgical History History of back surgery Hx of hand surgery Hx of total hip arthroplasty Social History (Updated 03/23/23 @ 10:54 by Nolvia Barnes [facility]) Household Members: Significant Other Housing: Apartment Do you presently have visiting nurse or other home services: No Alcohol intake: current Alcohol intake frequency: holidays/special occasions only Patient Tobacco Use Status: Former Tobacco user Quit Date: 25 yrs ago Tobacco use type: Cigarette Years Smoked: 20 Use of substances other than those prescribed or required for medical reasons: No Currently Displaying Signs/Symptoms of Drug Intoxication Withdrawal: No Have you been hit, kicked, punched, or otherwise hurt by someone within the past year? If so, by whom?: No Do you feel safe in your current relationship?: Yes Is there a partner from a previous relationship who is making you feel unsafe now?: No Are you made to feel afraid or neglected: No Are you DNR?: No Advance Directives: No Advance Directives Information Provided: Yes Do you have thoughts of harming others: None Recently lost weight without trying: No Nutrition Risks: Diabetes new onset/Uncontrolled service: No Current occupational status: unemployed Meds Allergies Allergy/AdvReac Type Severity Reaction Status Date / Time Seasonal Allergy Mild Sneezing Uncoded 10/16/22 06:12 Active Medications: Current Medications Atorvastatin Calcium (Atorvastatin Calcium 80 Mg Tablet) 80 mg PO BEDTIME FORMERLY [facility], [facility] Last Admin: 10/18/22 20:24 Dose: 80 mg Docusate Sodium (Docusate Sodium 100 Mg Capsule) 100 mg PO BID FORMERLY [facility], [facility] Last Admin: 10/19/22 07:51 Dose: 100 mg Insulin Human Lispro (Insulin Lispro 100 Unit/Ml 3 Ml Vial) 0 unit SUBCUT QIDACHS FORMERLY [facility], [facility]; Protocol Last Admin: 10/19/22 12:02 Dose: 2 unit Lisinopril (Lisinopril 20 Mg Tablet) 20 mg PO DAILY FORMERLY [facility], [facility]; Protocol Last Admin: 10/19/22 07:51 Dose: 20 mg Metformin HCl (Metformin Hcl 1,000 Mg Tablet) 1,000 mg PO BID FORMERLY [facility], [facility] Last Admin: 10/19/22 07:51 Dose: 1,000 mg Ondansetron HCl (Ondansetron Hcl 4 Mg/2 Ml Vial) 4 mg IVPUSH Q6H PRN PRN Reason: Nausea and Vomiting Oxycodone HCl (Oxycodone Hcl Immed Release 5 Mg Tablet) 5 mg PO Q4H PRN PRN Reason: Pain, Moderate(Pain Scale 4-6) Last Admin: 10/18/22 20:24 Dose: 5 mg Oxycodone HCl (Oxycodone Hcl Immed Release 5 Mg Tablet) 10 mg PO Q4H PRN PRN Reason: Pain, Severe (Pain Scale 7-10) Last Admin: 10/19/22 12:07 Dose: 10 mg Prednisone (Prednisone 20 Mg Tablet) 20 mg PO DAILY FOR[facility] Stop: 10/25/22 08:59 Vitamin D (Cholecalciferol (Vitamin D3) 25 Mcg Tablet) 25 mcg PO DAILY FOR[facility], [facility] Last Admin: 10/19/22 07:51 Dose: 25 mcg Home Medications Medication Instructions Recorded Confirmed Last Taken Type atorvastatin 80 mg tablet 80 mg PO BEDTIME 10/16/22 10/16/22 Unknown History cholecalciferol (vitamin D3) 25 25 mcg PO DAILY 10/16/22 10/16/22 Unknown History mcg (1,000 unit) tablet dulaglutide 0.75 mg/0.5 mL 0.75 mg subcut QWEEK 10/16/22 10/16/22 Unknown History subcutaneous pen injector (Trulicity) lisinopril 20 mg tablet 20 mg PO DAILY 10/16/22 10/16/22 Unknown History metformin 1,000 mg tablet 1,000 mg PO BID 10/16/22 10/16/22 Unknown History Physical Exam Vital Signs and Narrative: Vital Signs: Last Vital Signs Temp 98.7 F 10/19/22 11:47 Pulse 95 10/19/22 11:47 Resp 20 10/19/22 11:47 BP 156/81 H 10/19/22 11:47 Pulse Ox 99 10/19/22 11:47 O2 Del Method Room Air 10/19/22 11:47 O2 Flow Rate 3 10/16/22 18:00 BMI result Body Mass Index 29.0 General: AOx3, no acute distress Resp: CTA bilaterally CVS: S1, S2, RRR GI: +BS, NT, no distention Neuro: Cranial nerves II-XII grossly intact bilaterally. Motor grossly intact bilaterally Extremities: Right ankle and foot swollen, tender to light palpation, warm to the touch. Later aspect of right ankle erythematous. See picture below. Psych: Appropriate affect Results Labs 10/19/22 12:26 10/19/22 12:26 Labs: Laboratory Results - last 24 hr 05/05/0210/18/22 10/19/22 16:08 19:59 07:05 MCV MCH MCHC RDW Plt Count MPV Absolute Nucleated RBC Nucleated RBC % (auto) ESR Anion Gap Estim Creat Clear Calc Estimated GFR POC Glucose 209 H 183 H 222 H Random Glucose Uric Acid Calcium COVID-19 (ANNALISA) COVID-19 Clin Com 10/19/22 10/19/22 10/19/22 10:23 10:25 11:06 MCV MCH MCHC RDW Plt Count MPV Absolute Nucleated RBC Nucleated RBC % (auto) ESR Anion Gap Estim Creat Clear Calc Estimated GFR POC Glucose 174 H Random Glucose Uric Acid 2.9 L Calcium COVID-19 (ANNALISA) Negative COVID-19 Clin Com See Note 10/19/22 10/19/22 10/19/22 12:26 12:26 12:26 MCV 93.9 MCH 31.3 MCHC 33.3 RDW 12.8 Plt Count 177 MPV 9.7 Absolute Nucleated RBC 0.000 Nucleated RBC % (auto) 0.0 ESR 69 H Anion Gap 13 Estim Creat Clear Calc 127.9 Estimated GFR > 60 POC Glucose Random Glucose 232 H Uric Acid Calcium 9.5 COVID-19 (ANNALISA) COVID-19 Clin Com Imaging Radiologist's Impressions: Impressions Guidance Fluoroscopy 10/16/22 12:40 IMPRESSION: Intraoperative fluoroscopy for orthopedic procedure. Assessment and Plan (1) Gout attack: Status: Acute Plan Pt is a 57-year-old male with a PMH significant for insulin-dependent diabetes type 2, HTN, and HLD who is admitted to the hospital by Neurosurgery for C4 corpectomy, C3-5 anterior plating, C6-7 anterior cervical diskectomy and fusion. Postop day 3. Medical consult for right ankle pain. Swollen right ankle Patient with sudden onset right ankle swelling, pain, erythema Most likely acute gout flare, cellulitis/septic joint less likely Patient afebrile, no leukocytosis Uric acid low at 2.9, ESR elevated at 69 Will treat with prednisone 40mg now, 20mg qd x 5 days Analgesics for pain management Pt unable to be discharged from hospital today. Will re-evaluate tomorrow for possible discharge. Thank you for allowing us to participate in the care of this patient. Will continue to follow for now. Please let us know if there are any acute complaints or questions. Time Spent With Patient Time: Total time managing care of this patient today ____ minutes.
[2022-10-19] MEDS: predniSONE 20 MG TABLET 40 MG PO (14:08)
[2022-10-19 16:05] LABS: Glucose, Whole Blood 170 mg/dL (60-115)
[2022-10-19] MEDS: oxyCODONE HCl Immed Release 5 MG TABLET PO (17:03)
[2022-10-19 19:22] LABS: Glucose, Whole Blood 318 mg/dL (60-115)
[2022-10-19] MEDS: Atorvastatin Calcium 80 MG TABLET PO (20:21)
[2022-10-20] VITALS (9 sets, daily range): BP systolic 121–144; BP diastolic 71–84; PULSE 85–97; RESP 15–20; TEMP 36.1–36.8; O2SAT 96–98
[2022-10-20] MEDS: oxyCODONE HCl Immed Release 5 MG TABLET 10 MG PO ×3 (00:13→10:32)
[2022-10-20] MEDS: oxyCODONE HCl Immed Release 5 MG TABLET PO ×2 (02:18→20:14)
[2022-10-20 07:58] LABS: Glucose, Whole Blood 211 mg/dL (60-115)
[2022-10-20] MEDS: lisinopriL 20 MG TABLET PO (08:11)
[2022-10-20] MEDS: predniSONE 20 MG TABLET PO (08:16)
[2022-10-20] MEDS: metFORMIN HCl 1,000 MG TABLET 1000 MG PO ×2 (08:16→20:15)
[2022-10-20] MEDS: Cholecalciferol (Vitamin D3) 25 MCG TABLET PO (08:16)
[2022-10-20] MEDS: Docusate Sodium 100 MG CAPSULE PO ×2 (08:16→20:15)
[2022-10-20] MEDS: Insulin Lispro 100 UNIT/ML 3 ML VIAL SUBCUT ×5 (08:16→20:14)
[2022-10-20] MEDS: Morphine Sulfate 2 MG/ML CARTRIDGE IVPUSH ×3 (08:22→23:53)
--- NOTE | 2022-10-20 10:54 | P.PNIM_ITS ---
Subjective Subjective Date of Service: 10/20/22 Interval History: c/o lots of pain in the foot He says he felt much better after steroid yesterday Physical Exam Vital Signs: Vital Signs: Last Vital Signs Temp 97.2 F 10/20/22 07:52 Pulse 85 10/20/22 10:05 Resp 20 10/20/22 08:22 BP 131/81 10/20/22 10:05 Pulse Ox 98 10/20/22 10:05 O2 Del Method Room Air 10/20/22 07:52 O2 Flow Rate 3 10/16/22 18:00 BMI result Body Mass Index 29.0 Const: Other: General: AO X 3, no acute distress Resp: CTA bilateral CVS: S1,S2,RRR GI: +BS, NT, no distention Skin: the right foot is swollen, very tender to touch , appearnace c/w acute gout Neuro: motor grossly intact Psych: appropriate affect Objective Data Active Medications Atorvastatin Calcium (Atorvastatin Calcium 80 Mg Tablet) 80 mg PO BEDTIME FORMER[facility] Last Admin: 10/19/22 20:21 Dose: 80 mg Documented By: GINGER Docusate Sodium (Docusate Sodium 100 Mg Capsule) 100 mg PO BID [facility] Last Admin: 10/20/22 08:16 Dose: 100 mg Documented By: ANNETTE Insulin Human Lispro (Insulin Lispro 100 Unit/Ml 3 Ml Vial) 0 unit SUBCUT QIDACHS [facility]; Protocol Last Admin: 10/20/22 08:16 Dose: 4 unit Documented By: ANNETTE Lisinopril (Lisinopril 20 Mg Tablet) 20 mg PO DAILY [facility]; Protocol Last Admin: 10/20/22 08:11 Dose: 20 mg Documented By: ANNETTE Metformin HCl (Metformin Hcl 1,000 Mg Tablet) 1,000 mg PO BID [facility] Last Admin: 10/20/22 08:16 Dose: 1,000 mg Documented By: ANNETTE Morphine Sulfate (Morphine Sulfate 2 Mg/Ml Cartridge) 2 mg IVPUSH Q3H PRN; Protocol PRN Reason: Pain, Severe (Pain Scale 7-10) Last Admin: 10/20/22 08:22 Dose: 2 mg Documented By: ANNETTE Ondansetron HCl (Ondansetron Hcl 4 Mg/2 Ml Vial) 4 mg IVPUSH Q6H PRN PRN Reason: Nausea and Vomiting Oxycodone HCl (Oxycodone Hcl Immed Release 5 Mg Tablet) 5 mg PO Q4H PRN PRN Reason: Pain, Moderate(Pain Scale 4-6) Last Admin: 10/20/22 02:18 Dose: 5 mg Documented By: GINGER Oxycodone HCl (Oxycodone Hcl Immed Release 5 Mg Tablet) 10 mg PO Q4H PRN PRN Reason: Pain, Severe (Pain Scale 7-10) Last Admin: 10/20/22 10:32 Dose: 10 mg Documented By: ANNETTE Prednisone (Prednisone 20 Mg Tablet) 20 mg PO DAILY [facility] Stop: 10/25/22 08:59 Last Admin: 10/20/22 08:16 Dose: 20 mg Documented By: ANNETTE Vitamin D (Cholecalciferol (Vitamin D3) 25 Mcg Tablet) 25 mcg PO DAILY [facility] Last Admin: 10/20/22 08:16 Dose: 25 mcg Documented By: ANNETTE Labs 10/19/22 12:26 10/19/22 12:26 Labs: Laboratory Results - last 24 hr 10/19/22 10/19/22 10/19/22 10:25 11:06 12:26 MCV 93.9 MCH 31.3 MCHC 33.3 RDW 12.8 Plt Count 177 MPV 9.7 Absolute Nucleated RBC 0.000 Nucleated RBC % (auto) 0.0 ESR Anion Gap Estim Creat Clear Calc Estimated GFR POC Glucose 174 H Random Glucose Calcium COVID-19 (ANNALISA) Negative COVID-19 Clin Com See Note 10/19/22 10/19/22 10/19/22 12:26 12:26 16:02 MCV MCH MCHC RDW Plt Count MPV Absolute Nucleated RBC Nucleated RBC % (auto) ESR 69 H Anion Gap 13 Estim Creat Clear Calc 127.9 Estimated GFR > 60 POC Glucose 170 H Random Glucose 232 H Calcium 9.5 COVID-19 (ANNALISA) COVID-19 Clin Com 10/19/22 10/20/22 19:16 07:52 MCV MCH MCHC RDW Plt Count MPV Absolute Nucleated RBC Nucleated RBC % (auto) ESR Anion Gap Estim Creat Clear Calc Estimated GFR POC Glucose 318 H 211 H Random Glucose Calcium COVID-19 (ANNALISA) COVID-19 Clin Com Assessment and Plan Time Spent With Patient Time: Total time managing care of this patient today ____ minutes. Quality Stroke Does the patient have a stroke diagnosis?: No VTE Prior VTE?: No VTE Risk Level:: Surgical - low VTE Device Contraindication: N/A - Device Ordered VTE Drug Contraindication: Treatment Not Indicated
--- NOTE | 2022-10-20 11:38 | MHC.CM.PN ---
Met w/Pt. He states he is experiencing significant pain in RLE w/ increased swelling from yesterday. THis RNCM messaged MD w/Pt's statements. Pt indicated his pain was so severe he felt like he was going to be sick. aware; this RNCM to stay tuned RE potential D/C planning adjustments. CM to follow.
--- NOTE | 2022-10-20 12:26 | MHC.CM.PN ---
Reached out to RE Pt's D/C to rehab today (?if still a go or requires adjustment); indicates Pt will D/C tomorrow 10/21/22 rather than today. Called [facility] and canceled transport for today, messaged Facility via allscripts to notify them to expect Pt tomorrow. CM to follow.
[2022-10-20] MEDS: Colchicine 0.6 MG TABLET PO (12:28)
[2022-10-20 12:29] LABS: Glucose, Whole Blood 229 mg/dL (60-115)
[2022-10-20 16:41] LABS: Glucose, Whole Blood 350 mg/dL (60-115)
[2022-10-20 19:40] LABS: Glucose, Whole Blood 283 mg/dL (60-115)
[2022-10-20] MEDS: Atorvastatin Calcium 80 MG TABLET PO (20:15)
[2022-10-21 03:06] VITALS: BP 113/65; PULSE 75; RESP 17; TEMP 36; O2SAT 95
[2022-10-21] MEDS: oxyCODONE HCl Immed Release 5 MG TABLET 10 MG PO (04:52)
[2022-10-21 05:45] VITALS: BMI 30.3
[2022-10-21 08:00] VITALS: BP 184/92; PULSE 88; RESP 20; TEMP 36.2; O2SAT 98
[2022-10-21 08:29] LABS: Glucose, Whole Blood 249 mg/dL (60-115)
[2022-10-21] MEDS: lisinopriL 20 MG TABLET PO (08:33)
[2022-10-21] MEDS: predniSONE 20 MG TABLET PO (08:33)
[2022-10-21] MEDS: metFORMIN HCl 1,000 MG TABLET 1000 MG PO (08:33)
[2022-10-21] MEDS: Docusate Sodium 100 MG CAPSULE PO (08:33)
[2022-10-21] MEDS: Insulin Lispro 100 UNIT/ML 3 ML VIAL SUBCUT (08:33)
[2022-10-21] MEDS: Cholecalciferol (Vitamin D3) 25 MCG TABLET PO (08:33)
[2022-10-21 09:15] VITALS: BP 138/80
--- NOTE | 2022-10-21 09:20 | MHC.CM.PN ---
CM MET WITH PT TO DISCUSS PENDING DC HE IS AWARE TRANSPORT [facility] WILL BE ARRANGED FOR 1100 HOURS HE INITIALLY SAYS HE WOULD LIKE TO GO HOME INSTEAD BECAUSE HE NEEDS TO SEE HIS MOTHER HE SAYS HE LIVES IN A ONE LEVEL HOME, HOWEVER ADMITS HE IS NOT STRONG ENOUGH TO MANAGE AFTER SOME DISCUSSION, HE AGREES HE NEEDS TO GO TO REHAB HE ASKS IF THE AMBULANCE WILL ALLOW HIS GF TO RIDE THERE WITH HIM CM INFORMED HIM THIS WAS UNLIKELY SINCE HE WAS GOING TO AR HE WILL LIKELY ASKS THE CREW PT WILL DC TO [facility] AT 1100 HOURS TODAY [facility] *PT ALSO REPORTED HE WAS IN SEVERE PAIN THAT WAS ONLY RELIEVED YESTERDAY WHEN THEY GAVE HIM PREDNISONE AND MORPHINE. MESSAGE RELAYED TO RN AND
[2022-10-21] MEDS: oxyCODONE HCl Immed Release 5 MG TABLET PO (09:23)
[2022-10-21] MEDS: Morphine Sulfate 2 MG/ML CARTRIDGE IVPUSH (09:27)
--- NOTE | 2022-10-21 10:44 | PC.NURSE ---
Patient is A&OX4 speech clear. GONZALES to command 5/5 except RLE 3/5 d/t swelling and pain 2+ edema non-pitting sensation intact. +plantar dorsi flexion to BLE right weaker d/t pain. Denies headache, dizziness or vision changes pupils PERRL 3B. Lung sounds clear dim bases denies shortness of breath or chest pain. BS+X4 abdomen soft non-tender denies nausea vomiting tolerating diet. Voiding in urinal without difficulty. Pt c/o pain to neck and right foot/ankle medicated with 10mg oxycodone and morphine IV for pain 12/17 this am with some effect. Surgical site to right anterior neck with moderate swelling and dark ecchymosis steri strip remain in place. OOB to commode with walker and assist. Transfer planned to rehab for 1100. Patient aware of plan
--- NOTE | 2022-12-06 13:33 | PM.DS ---
DS: Providers Provider Date of Service: 10/16/22 Primary care physician: Jonathon Ko MD Consults: 10/19/22 09:09 Consult to Hospitalist Routine Comment: Consulting Provider: Hospitalist Reason For Exam: right ankle pain, suspect gout flare up 10/19/22 09:17 Consult to Orthopedics Routine Consulting Provider: [facility] [place] Orthopedic Surgeons Reason for consultation: Ankle Sprain DS: Diagnosis Discharge Diagnosis (1) Gout attack: Status: Acute DS: Summary Hospital Course Hospital Course: THIS PATIENT WAS INADVERTENLY DESIGNATED EXTENDED STAY INCORRECTLY. HE WAS ADMITTED TO HOSPITAL FOR CERVICAL SPINAL PROCEDURE INPATIENT This is a 57-year-old gentleman with a history of diabetes, alcohol abuse, previous C5-6 noninstrumented anterior cervical fusion who presented to they office with progressive paraparesis and worsening signs of myelopathy found to have severe stenosis at C3-4, C4-5 and C6-7. He was admitted for C4 corpectomy, C3-5 anterior plating with fusion, C6-7 anterior cervical diskectomy and fusion. The patient underwent procedure without complication. He was brought to the PACU where he recovered from anesthesia in the brought to the ICU for night for monitoring. The patient had an uneventful 1st night, in fact he had significant improvement in his leg weakness and hand numbness after surgery. By postoperative day 1. He was doing well and was transferred out to the floor. He was tolerating a diet with some dysphagia. He was voiding without any issues. He started to work with PT and OT. He was unstable on his feet it was felt that he would need rehab. On his 2nd postoperative night, he experienced right ankle pain. The patient told us that he slept in an awkward position with his right foot turned at a weird angle because of how tall he is in a short the beds were. We did an x-ray to rule out a fracture and this was fine with only evidence of soft tissue swelling. He had at right lower extremity duplex to rule out DVT a few days before surgery so we do not feel the need to repeat that. We attempted to mobilize him again but he had a lot of difficulty bearing weight on the right leg because of the ankle pain. By postoperative day 3., the pain is swelling and gotten so significant that he was unable to even let us examine it. I asked for a hospitalist consult and then subsequent also an orthopedic consult was placed. We had a suspicion a could be gout but this was ruled out. Orthopedics thought that it was consistent with an ankle sprain and recommended a splint boot, anti-inflammatories, rest ice elevation etc.. His stay was otherwise unremarkable, he did have some elevated blood sugars in the mid 200s which we covered with sliding scale. The plan will be to have the patient discharged out to rehab today in stable condition. We gave him a hard collar to wear only when he is out of bed. Obviously he will not be able to bear much weight on the right foot until it is improved. Condition on discharge, afebrile, vital signs stable he is awake alert oriented, his gross motor examination reveals full strength of the bilateral upper extremities. Lower extremities is limited because of his right ankle pain, but his proximal strength is approximately 4/5 which is significantly improved compared to his preoperative. Distally his left leg is full strength. He has an anterior neck incision which is clean and dry, the dressing has been removed. There is some ecchymosis and a small amount of swelling under the skin but there is no signs of a tension hematoma. As mentioned his right ankle is very swollen and tender to touch or manipulation. The patient should follow-up in the Neurosurgery office in 3 weeks. He can be activity as tolerated with the boot on the right foot, and hard collar when he is out of bed. He can use crutches or walker would ever is easier for him. Time Spent with Patient Time attestation: Total time managing care of this patient today ____ minutes. Discharge coordination time: Less than 30 minutes Quality: Safe Use of Opioids Does Pt have an Active Cancer Diagnosis on the Problem List?: No Quality: Stroke Does the patient have a stroke diagnosis?: No Physical Exam Vital Signs: Vital Signs: Last Vital Signs Temp 97.1 F 10/21/22 08:00 Pulse 88 10/21/22 08:00 Resp 20 10/21/22 08:00 BP 138/80 10/21/22 09:15 Pulse Ox 98 10/21/22 08:00 O2 Del Method Room Air 10/21/22 08:00 O2 Flow Rate 3 10/16/22 18:00 BMI result Body Mass Index 30.3 Discharge Plan Discharge Patient Disposition: [facility] Referrals: [facility] [Other] - 1 Week Jonathon Ko MD [Primary Care Provider] - 1 Week Discharge Medications: New insulin lispro [Humalog U-100 Insulin] 100 unit/mL Solution See Protocol subcut QIDACHS Qty: 10 0RF Protocol: Insulin Correction Scale Less than or equal to 110 ---- Give (units): 0 111 to 150 Give (units): 0 151 to 200 Give (units): 2 201 to 250 Give (units): 4 251 to 300 Give (units): 6 301 to 350 Give (units): 8 Greater than 350 Give (units): 10 Call MD if Blood Glucose > : 350 docusate sodium 100 mg Capsule 100 mg PO BID Qty: 20 0RF prednisone 20 mg Tablet 20 mg PO DAILY Qty: 5 0RF melatonin 5 mg tablet 5 mg PO BEDTIME PRN (Reason: sleep) Qty: 20 0RF Continued atorvastatin 80 mg tablet 80 mg PO BEDTIME lisinopril 20 mg tablet 20 mg PO DAILY metformin 1,000 mg tablet 1,000 mg PO BID cholecalciferol (vitamin D3) 25 mcg (1,000 unit) tablet 25 mcg PO DAILY Trulicity 0.75 mg/0.5 mL pen injector 0.75 mg subcut QWEEK No Action oxycodone 5 mg tablet 5 mg PO Q6H PRN (Reason: pain) Qty: 30 0RF Rx Instructions: Partial Fill upon patient request. oxycodone 10 mg tablet See Rx Instructions PO Q6H PRN (Reason: pain) Qty: 20 0RF Rx Instructions: 1/2 tablet orally every 6 hours PRN; Partial Fill upon patient request. Discharge Orders: Discharge Order (Routine); Ordered 10/21/22 Ordered By: Watson Hernandez Diet: Diabetic diet Activity on Discharge: hard collar when out of bed, splint on foot, walker or crutches as needed Activity Restrictions/Additional Instructions: HARD COLLAR WHEN OUT OF BED SPLINT BOOT TO RIGHT FOOT WHEN WALKING FOR PAIN, MAY REMOVE WHEN PAIN IMPROVED After your spinal surgery we ask you to observe the following restrictions/guidelines: Activity: It is normal to feel some discomfort as you increase your activity, but that will improve with time. We ask you avoid heavy lifting or acitivities that cause pain. As a general rule, 8lbs is a safe limit for lifting right after surgery. Walk as much as you feel comfortable but not to exhaustion. You will feel extra tired the first few days after surgery. Stay well hydrated. It is OK to walk up and down stairs You may return to driving when you are off narcotics (such as vicodin, oxycodone, dilaudid, etc), and you are back to normal functional capacity. If you have any concerns please check with office before driving. Return to work is specific to each patient and each surgery, so please speak with your doctor/PA at first follow up. Please bring paperwork such as FMLA at that time if you need it filled out. Medications: We will give you a short supply of narcotics after surgery (usually one weeks worth). If you need more please call the office but do not use more than prescribed. You will need to give our office 48 hours notice if you need narcotics refilled and we do not fill narcotics on weekends or evenings. If you are on a narcotic, it is a good idea to take a stool softener such as colace or senna to avoid constipation If you take blood thinner such as aspirin, Plavix, Coumadin, Effient, Eliquis etc for conditions such as Afib, DVT, Pulmonary embolus, coronary disease, stents etc please speak with your surgeon about specific details as to when you can resume these medications. You can resume NSAIDs on post op day 1 (eg: Motrin, Naproxen, etc). Follow up: Please call the office, , after surgery to arrange a 3 week follow up for wound check. Wound Care: You may remove your dressing on the first day after surgery. You may leave open to air. Please do not remove the steri strips underneath. they will fall off on their own in one week. IT IS NORMAL FOR THE WOUND TO OOZE OR BE BLOODY FOR A FEW DAYS AFTER SURGERY. IF THIS HAPPENS JUST PLACE NEW DRESSING OVER IT TO AVOID STAINING CLOTHES. You may shower on post op day # 1 We ask that you do not let the water soak the wound. If it does get wet, just towel dry lightly. Please do not scrub your incision or place any type of chemical/ointment on the wound. No tub baths, pools or jacuzzis for one month. For gout take Prednisone 20 mg daily for 5 more days, and oxycodone for pain If you have any leaking or redness from your wound, or fevers, please call office Discharge Date/Time: 10/21/22 11:35
== END 2022-10-21 11:35 | disposition skilled nursing facility (03) | DRG 472 ==
LOC: HO.IMC 10-18 13:55 → HO.SSSA 01-07 12:31 → HO.ICU 01-07 12:36 → HO.IMC 01-07 12:36
PROVIDERS: Internal Medicine; Nurse Practitioner; Nurse Practitioner Family; Student in an Organized Health Care Education/Training Program; Admitting Provider Neurological Surgery; PCP Internal Medicine; Visit Provider Neurological Surgery
PROC: 0RG1070 Fusion of Cervical Vertebral Joint with Autologous Tissue Substitute, Anterior Approach, Anterior Column, Open Approach (ICD-10-PCS; principal; 2022-10-16 07:30)
DX: M48.02 Spinal stenosis, cervical region (principal); G82.20 Paraplegia, unspecified; G99.2 Myelopathy in diseases classified elsewhere; Z98.1 Arthrodesis status; I10 Essential (primary) hypertension; E78.00 Pure hypercholesterolemia, unspecified; E11.9 Type 2 diabetes mellitus without complications; R32 Unspecified urinary incontinence; J30.2 Other seasonal allergic rhinitis; F10.10 Alcohol abuse, uncomplicated; M25.571 Pain in right ankle and joints of right foot; Z79.4 Long term (current) use of insulin; Z99.89 Dependence on other enabling machines and devices; Z96.643 Presence of artificial hip joint, bilateral; Z79.899 Other long term (current) drug therapy; Z98.890 Other specified postprocedural states; Z87.828 Personal history of other (healed) physical injury and trauma; Z87.891 Personal history of nicotine dependence; Z20.822 Contact with and (suspected) exposure to COVID-19
CPT/HCPCS: 36415; 72040; 73600; 80048; 80053; 82040; 82947; 83735; 84100; 84550; 85025; 85027; 85610; 85652; 85730; 87635; 97110; 97162; 97166; 97530; C1713; J0131; J0690; J1100; J1170; J1200; J2060; J2250; J2270; J2370; J2405; J3010

== ENCOUNTER 2022-11-07 13:15 | Outpatient (REF) | payer MEDICARE, MEDICAID, SELFPAY | END 2022-11-07 13:16 | disposition home or self-care (01) | LOC: HO.HOSX 13:15 | PROVIDERS: PCP Internal Medicine; Visit Provider Neurological Surgery | DX: Z98.1 Arthrodesis status (principal) | CPT/HCPCS: 99212 ==

== ENCOUNTER 2022-11-29 08:56 | Outpatient (REF) | payer MEDICARE, MEDICAID, SELFPAY ==
--- NOTE | ~2022-11-29 | XR_ITS ---
EXAMINATION: XR CERVICAL SPINE CLINICAL INFORMATION: Arthrodesis status. COMPARISON: Previous dated 10/18/2022 TECHNIQUE: 2 views. FINDINGS: Lateral image is comparable. Anterior hardware and device bridges C3 to C5. Anterior hardware and screws at C6-C7. There is no evidence of change in vertebral body position from previous exam. No evidence for hardware failure. The frontal film is also comparable. XR/XR cervical spine 2V IMPRESSION: Hardware once again seen in place. No acute finding. No evidence of hardware failure.
== END 2022-11-29 08:57 | disposition home or self-care (01) ==
LOC: HO.HOSX 08:56
PROVIDERS: Visit Provider Physician Assistant
DX: N53.14 Retrograde ejaculation (principal); Z98.1 Arthrodesis status
CPT/HCPCS: 72040; 99212

== ENCOUNTER 2022-12-21 13:41 | Outpatient (REF) | payer MEDICARE, MEDICAID, SELFPAY ==
--- NOTE | ~2022-12-21 | XR_ITS ---
EXAMINATION: XR CERVICAL SPINE CLINICAL INFORMATION: Arthrodesis status COMPARISON: Cervical spine radiographs dated 11/29/22. TECHNIQUE: 2 views of the cervical spine were obtained. FINDINGS: Anterior hardware and metallic cage bridges C3 to C5, similar to prior exam. Anterior hardware and screws at C6-C7, similar to prior exam. No evidence for hardware failure. There is no prevertebral soft tissue abnormality. Alignment is stable. XR/XR cervical spine 4V IMPRESSION: Stable appearance of cervical spine.
== END 2022-12-21 13:42 | disposition home or self-care (01) ==
LOC: HO.HOSX 13:41
PROVIDERS: Visit Provider Physician Assistant
DX: Z98.1 Arthrodesis status (principal)
CPT/HCPCS: 72050

== ENCOUNTER 2022-12-21 14:13 | Outpatient (AMB) | payer MEDICARE, MEDICAID, SELFPAY ==
--- NOTE | 2022-12-21 14:32 | HO.SPINEOV ---
Intake Intake Visit Reasons: 2 week f/u with xrays Intake Note: Mr. Degroot is here today for his 2wk f/u w/x-rays. Olericulturist Required: No Allergies Seasonal Allergy (Mild, Uncoded 10/16/22 06:12) Sneezing Assessment & Plan Assessment & Plan (1) Status post cervical spinal fusion: Code(s): Z98.1 - Arthrodesis status Plan Mr Degroot is back to review his x-rays today. He is continuing to have some dysphagia but seems to be eating well enough to maintain his weight. His neurological symptoms are better than they were before surgery in terms of his mobility but he has not seen a significant jump in his functional capabilities. His x-rays today show he has stable positioning of the upper screw above the corpectomy where there is about 10-20% of the screw still in the bone. There has been no significant change in that. He continues to wear his hard collar. We will continue doing xrays every [address] Elmore, unless he feels otherwise but I think since he is stable clinically and radiologically hopefully we can avoid having to do anything surgically in the interim. We would like the graft to be fused before we take the anterior plate off. He will continue to wear the hard collar at all times. Zach Elmore MD, PhD [facility] Coding Level of Care Code Global (81827) Diagnoses Status post cervical spinal fusion Z98.1
== END 2022-12-21 15:23 | disposition home or self-care (01) ==
PROVIDERS: PCP Internal Medicine; Visit Provider Physician Assistant
DX: Z98.1 Arthrodesis status (principal)
CPT/HCPCS: 99024

== ENCOUNTER 2023-01-04 09:22 | Outpatient (REF) | payer MEDICARE, MEDICAID, SELFPAY ==
--- NOTE | ~2023-01-04 | XR_ITS ---
EXAMINATION: XR CERVICAL SPINE CLINICAL INFORMATION: Arthrodesis status COMPARISON: Multiple prior studies 10/16/2022 through 12/21/2022. TECHNIQUE: AP, lateral neutral, lateral flexion and lateral extension views obtained. FINDINGS: Anterior plate and screws spans from C3 to C5. The lower threads are well-seated in the C5 vertebral body. The upper screws have loosened from the vertebral body with 2-3 threads remaining seated in the C3 vertebral body which is similar to 12/21/2022 and has changed when compared to an earlier exam of 10/18/2022. Additionally, a metallic cage is seen spanning from the C3-C5 vertebral bodies. In flexion, there is increased flexion of the C3 vertebral body with slight motion between the C3 vertebral body and the superior aspect of the metallic cage. Alignment improves in extension. Below this level there is solid bony fusion between C5 and C6 and stable hardware at the C6-C7 level related to prior anterior fusion. XR/XR cervical spine w flex/ext IMPRESSION: Evidence of cervical instrumentation noted from C3 through C5 as well as the C6-C7 level. The anterior plate at the C3-C5 level is from the C3 vertebral body with retraction of the screws. This is unchanged from 12/21/2022 but has progressed compared to earlier. Abnormal motion is seen in flexion between the C3 vertebral body and the adjacent interbody vertebral cage.
== END 2023-01-04 09:23 | disposition home or self-care (01) ==
LOC: HO.HOSX 09:22
PROVIDERS: Visit Provider Physician Assistant
DX: G95.9 Disease of spinal cord, unspecified (principal)
CPT/HCPCS: 72052

== ENCOUNTER 2023-01-04 14:30 | Outpatient (AMB) | payer MEDICARE, MEDICAID, SELFPAY ==
--- NOTE | 2023-01-04 15:01 | A.SPINEOV_ITS ---
Intake Intake Visit Reasons: 2 week f/u with xrays Intake Note: Mr. Degroot is here today for his 2wk f/u w/x-rays. 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 Postoperatively we have been watching his x-rays because his top portion of his plate has started to back out. Thankfully the x-rays have not shown any change in the position of the upper screw. He still continues to do with dysphagia. Today however, he is more concerned about some recent developed been seen and he appears to be going backwards in terms of his mobility. He specifically tells me that he feels as though his legs are starting to give out from underneath him again any starting to have increased weakness of his feet. He is back to using crutches when walking again. He does not report any tingling or numbness in his arms. We did a thorough examination on him today and he is unsteady on his feet. He is unable to walk without the assistance of his crutches. And static motor testing he does have weakness of his right iliopsoas in his right tibialis which I would rate as 4- out of 5 both. His arm strength upper extremities appear to be normal. He is diffusely hyperreflexic. His x-ray today shows similar position of the upper screw on the anterior cervical plate from the corpectomy site. It does not appear to be moving with his head in flexion extension positions. I am concerned about his clinical complaint of worsening gait and feelings of weakness in his legs as that was his initial presentation. I am going to order a full view MRI of his spine to be sure that we are not missing something in the thoracic or the lumbar area, also to be sure that there is no residual posterior compression in the cervical spine that may need to be addressed. It is unusual to see patient is 3 months out start to complain of recurrent symptoms. I will continue him in the hard collar for now until I have a chance to speak with Dr. Elmore to determine when he thinks it would be safe to take him out of it. Total amount of time spent in this visit was 20 minutes in discussion of symptoms, cervical spine x-ray imaging results and subsequent plan of care Zach Elmore MD,PhD [facility] Orders: Orders MR cervical spine wo con Today G95.9 - Disease of spinal cord, unspecified MR thoracic spine wo con Today R29.898 - Other symptoms and signs involving the musculoskeletal system MR lumbar spine wo con Today R29.898 - Other symptoms and signs involving the musculoskeletal system Medications: New diazepam (Valium) orally once PRN; one tablet po 30 prior to mri and then one tablet right before mri 2 tabs 0RF anxiety Coding Level of Care Code Global (45414) Diagnoses Cervical myelopathy G95.9
== END 2023-01-04 15:57 | disposition home or self-care (01) ==
PROVIDERS: PCP Internal Medicine; Visit Provider Physician Assistant
DX: G95.9 Disease of spinal cord, unspecified (principal)
CPT/HCPCS: 99024

== ENCOUNTER 2023-01-15 15:05 | Outpatient (REF) | payer MEDICARE, MEDICAID, SELFPAY ==
[2023-01-15 18:45] LABS: Alanine Aminotransferase 14 U/L (0-40); Albumin Level 4.6 g/dL (3.5-5.0); Alkaline Phosphatase 66 U/L (39-117); Anion Gap 15 (12-20); Aspartate Amino Transferase 12 U/L (5-37); Bilirubin Total 0.5 mg/dL (0.0-1.0); Blood Urea Nitrogen 27 mg/dL (9-16); Calcium 10.9 mg/dL (8.4-10.2); Carbon Dioxide 24 mmol/L (22-29); Chloride 105 mmol/L (96-108); Cholesterol 153 mg/dL; Estimated Glomerular Filt Rate > 60; Glucose Random 78 mg/dL (60-115); HDL Cholesterol 34 mg/dL; LDL Cholesterol Calculated 93 mg/dl; Sodium 140 mmol/L (135-145); Total Protein 7.8 g/dL (6.5-8.0); Triglycerides 130 mg/dL
== END 2023-01-15 15:06 | disposition home or self-care (01) ==
LOC: HO.CHCLDS 15:05
PROVIDERS: Visit Provider Internal Medicine
DX: E11.65 Type 2 diabetes mellitus with hyperglycemia (principal)
CPT/HCPCS: 36415; 80053; 80061

== ENCOUNTER 2023-01-24 15:06 | Outpatient (AMB) | payer MEDICARE, MEDICAID, SELFPAY ==
--- NOTE | 2023-01-24 15:09 | A.OFFVIS_ITS ---
Intake Intake Visit Reasons: Retrograde ejaculation Intake Note: New Patient presents for initial visit retrograde ejaculation Urology Medications: none Blood Thinner: none Foreign Law Consultant Required: No Accompanied by: Self / Same As Patient Allergies Seasonal Allergy (Mild, Uncoded 01/24/23 15:57) Sneezing Medication List - Last Reconciled 01/24/23 by MAVERICK Ceja atorvastatin 80 mg PO BEDTIME cholecalciferol (vitamin D3) 25 mcg PO DAILY indomethacin 25 mg PO BID lisinopril 20 mg PO DAILY metformin 1,000 mg PO BID tadalafil (Cialis) 5 mg PO DAILY 30 days HPI HPI Comments History of Present Illness Details Jonatan is a very pleasant 57-year-old male patient of Dr. Shyla Patiño. 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 He presents to the office today as a new patient for retrograde ejaculation, erectile dysfunction, and lower urinary tract symptoms. In discussion with the patient today he reports a longstanding history of severe cervical myelopathy that has required multiple ongoing surgeries. He discusses his most recent surgery approximately 3 months ago here with Dr. Elmore. He discusses noting his urinary issues, erectile dysfunction, and retrograde ejaculation to be more profound since his most recent surgery. Discussed at length symptoms can be related to worsening cervical myelopathy patient is experiencing. When asked he denies hematuria, dysuria, foul smelling urine, changes to urinary stream, flank pain, fever, and or chills. In office urinalysis results reviewed with the patient today. PVR 21ml's. Discussed obtaining retroperitoneal ultrasound for further assessment evaluation as well as PSA. Discussed possible near future in office cystoscopy if symptoms persist and/or worsen. [facility] Medical History Diabetes Erectile dysfunction ETOH abuse Fusion of spine, cervical region High cholesterol HTN (hypertension) Hyperlipidemia associated with type 2 diabetes mellitus Lumbar radiculopathy Spinal cord injury, cervical region Type 2 diabetes mellitus Unspecified lack of coordination Urinary incontinence Surgical History (Updated 01/24/23 @ 14:23 by Park Jones) History of back surgery Hx of hand surgery Hx of total hip arthroplasty Social History (System 01/24/23 @ 14:23 by Park Jones) Household Members: Significant Other Housing: Apartment Do you presently have visiting nurse or other home services: No Alcohol intake: current Alcohol intake frequency: holidays/special occasions only Patient Tobacco Use Status: Former Tobacco user Quit Date: 25 yrs ago Tobacco use type: Cigarette Years Smoked: 20 service: No Current occupational status: unemployed Review of Systems Const Reports as per HPI Eyes Reports no additional complaints ENT Reports no additional complaints Card Reports as per HPI Resp Reports no additional complaints GI Reports as per HPI Reports as per HPI Musc Reports as per HPI Neuro Reports as per HPI Psych Reports as per HPI Endo Reports as per HPI Physical Exam Const General: cooperative, comfortable, no acute distress, well developed, alert and awake Orientation/consciousness: patient oriented x3 Limitations: ambulation with walker and other limitations (neck brace ) HEENT Head: Yes normal to inspection, Yes normocephalic and Yes atraumatic Ears: hearing grossly normal bilaterally Eyes General: appearance normal, both eyes and all related structures Chest Chest palpation & inspection: normal inspection of the chest Resp Effort & Inspection: normal respiratory effort and able to speak in complete sentences Cardio Rate: regular rate GI Inspection: Yes normal to inspection General: Yes no CVA tenderness Back/Spine/Pelvis Back: no CVA tenderness Skin General skin exam: no rashes or lesions noted Neuro Other: right leg with foot drop General: patient oriented x3 Extrem General: Yes normal to inspection Psych Appearance: grossly normal and well kempt Mental Status: mental status grossly normal Speech and movement: Normal speech and movement present and Clear speech present Affect: normal affect Attitude: cooperative Thought process: Normal thought process present Thought content: Normal thought content present Insight: Fair insight present (Psych) Judgement: Fair judgement present (Psych) Office Procedures Post Void Residual Post Residual Void Post Void Residual (PVR): 21 [id number] Void Residual by ultrasound Results AMB Urinalysis, Automated UA Leukoctes 0 Michael/uL Last Edit by Myles Waters on 01/24/23 15:35 UA Nitrite Negative Last Edit by [employer] Waters on 01/24/23 15:35 UA Urobilinogen 0.2 mg/dL Last Edit by [employer] on 01/24/23 15:35 UA Protein 0 mg/dL Last Edit by Myles Waters on 01/24/23 15:35 UA pH 6.0 Last Edit by Myles Waters on 01/24/23 15:35 UA Blood 0 Tacos/uL Last Edit by Myles Waters on 01/24/23 15:35 UA Specific [place] 1.020 Last Edit by Myles Waters on 01/24/23 15:35 UA Ketone Negative Last Edit by Myles Waters on 01/24/23 15:35 UA Bilirubin 0 mg/dL Last Edit by Myles Waters on 01/24/23 15:35 UA Glucose 0 mg/dL Last Edit by Myles Waters on 01/24/23 15:35 Results Reviewed Results Reviewed: Laboratory Last Values Urine pH (Auto) 6.0 01/24/23 15:18 Specific [place] (Auto) 1.020 01/24/23 15:18 Urine Protein (Auto) 0 mg/dL 01/24/23 15:18 Glucose (UA)(Auto) 0 mg/dL 01/24/23 15:18 Urine Ketones (Auto) Negative 01/24/23 15:18 Urine Blood (Auto) 0 Tacos/uL 01/24/23 15:18 Urine Nitrite (Auto) Negative 01/24/23 15:18 Urine Bilirubin (Auto) 0 mg/dL 01/24/23 15:18 Urine Urobilinogen (Auto) 0.2 mg/dL 01/24/23 15:18 Leukocyte Esterase (Auto) 0 Michael/uL 01/24/23 15:18 Assessment & Plan Assessment & Plan (1) Lower urinary tract symptoms: Code(s): R39.9 - Unspecified symptoms and signs involving the genitourinary system (2) Erectile dysfunction: Code(s): N52.9 - Male erectile dysfunction, unspecified (3) Retrograde ejaculation: Code(s): N53.14 - Retrograde ejaculation Plan In office urinalysis results reviewed with the patient today. PVR 21 mL. Discussed at length potential causes for lower urinary tract symptoms, ED, and retrograde ejaculation. Discussed importance of managing diabetes for improvement in urinary symptoms as well as overall health and well-being. Will obtain retroperitoneal ultrasound for further assessment evaluation. Will obtain PSA, testosterone free and total. Start Cialis 5 mg daily as discussed and prescribed. Discussed possible near future in office cystoscopy if symptoms persist and/or worsen. Follow-up in 6-8 weeks with imaging and labs to be completed prior; or sooner with any issues, concerns, and or questions. Orders: Orders Prostate Specific Antigen Today N40.0 - Benign prostatic hyperplasia without lower urinary tract symptoms Testosterone, Free/Total Today N52.9 - Male erectile dysfunction, unspecified, R53.83 - Other fatigue US retroperitoneal comp Today N39.43 - Post-void dribbling AMB Urinalysis Automated Today Z13.9 - Encounter for screening, unspecified AMB Post Void Residual by ultrasound Today N53.14 - Retrograde ejaculation Medications: New tadalafil (Cialis) [id number] [facility] [id number] Member [id number] 5 mg PO DAILY 30 days 30 tabs 2RF Patient Instructions: The patient had an opportunity to ask questions regarding the treatment plan. All questions were answered. Physical exam, labs, and imaging were discussed and reviewed in detail. As well as risks, benefits, and discussion of treatment choices. No major barriers to understanding were identified. The patient expressed understanding and agreement with the above treatment plan. The patient was made aware they should contact our office by phone for worsening of their current condition, the appearance of new symptoms, or with any questions or concerns. Compliance is encouraged with any medications and follow up testing that is ordered. It is a privilege to be allowed the opportunity to participate in? your urological care.? Again, if you have any questions or concerns If you have any questions or concerns please do not hesitate to contact me. The office is [phone]. This note is constructed using voice recognition software. While every effort has been made to ensure accuracy carton filler errors may have been included. Yours sincerely, MAVERICK Ceja Coding Level of Care Code New Pt Level 4 (30976) Diagnoses Lower urinary tract symptoms R39.9 Erectile dysfunction N52.9 Retrograde ejaculation N53.14 CPT Codes Post Residual Void - PVR CPT Code: 23475-Hmhs Void Residual by ultrasound ([id number])
== END 2023-01-24 15:58 | disposition home or self-care (01) ==
LOC: HO.HUSH 15:06
PROVIDERS: PCP Internal Medicine; Visit Provider Nurse Practitioner Family
DX: R39.9 Unspecified symptoms and signs involving the genitourinary system (principal); N52.9 Male erectile dysfunction, unspecified; N53.14 Retrograde ejaculation
CPT/HCPCS: 99204

== ENCOUNTER → 2023-01-24 15:06 | Outpatient (BNVA) | payer MEDICARE, MEDICAID, SELFPAY | PROVIDERS: PCP Internal Medicine; Visit Provider Nurse Practitioner Family | DX: R39.9 Unspecified symptoms and signs involving the genitourinary system (principal); N52.9 Male erectile dysfunction, unspecified; N53.14 Retrograde ejaculation | CPT/HCPCS: 51798; 81003; 99202 ==

== ENCOUNTER 2023-07-11 12:42 | Outpatient (REF) | payer MEDICARE, MEDICAID, SELFPAY ==
--- NOTE | ~2023-07-11 | US_ITS ---
EXAMINATION: Noninvasive assessment of the bilateral lower extremities with a COMPLETE ARTERIAL DUPLEX exam and ANKLE BRACHIAL INDICES (ABIs). CLINICAL INFORMATION: Bilateral leg pain COMPARISON: None available. TECHNIQUE: Duplex Doppler techniques with waveform analysis and measurement of velocities in the bilateral common femoral, profunda femoris, superficial femoral, popliteal and tibial arteries were performed. The study was performed only at rest. FINDINGS: RIGHT: Common femoral artery:183 cm/s, phasicity: Triphasic Proximal Profunda femoris artery:137 cm/s, phasicity: Triphasic Proximal Superficial femoral artery:217 cm/s, phasicity: Triphasic Mid Superficial femoral artery:97.3 cm/s, phasicity: Triphasic Distal Superficial femoral artery:158 cm/s, phasicity: Triphasic Popliteal artery:88.5 cm/s, phasicity: Triphasic Posterior tibial artery:132 cm/s, phasicity: Monophasic LEFT: Common femoral artery:147 cm/s, phasicity: Triphasic Proximal Profunda femoris artery:89.7 cm/s, phasicity: Monophasic Proximal Superficial femoral artery:132 cm/s, phasicity: Triphasic Mid Superficial femoral artery:162 cm/s, phasicity: Triphasic Distal Superficial femoral artery:113 cm/s, phasicity: Triphasic Popliteal artery:97.3 cm/s, phasicity: Triphasic Posterior tibial artery:131 cm/s, phasicity: Triphasic IMPRESSION RIGHT LOWER EXTREMITY: Peripheral arterial disease of the right lower extremity with moderate stenosis of the proximal superficial femoral artery, monophasic waveform of the right posterior tibial artery, and multifocal areas of mild stenosis in the remaining arteries of the right lower extremity. LEFT LOWER EXTREMITY: Peripheral arterial disease of the left lower extremity with a monophasic waveform of the left proximal profunda artery and multifocal areas of mild stenosis in the remaining arteries of the left lower extremity.
== END 2023-07-11 12:43 | disposition home or self-care (01) ==
LOC: HO.US 12:42
PROVIDERS: PCP Internal Medicine; Visit Provider Internal Medicine
DX: M79.604 Pain in right leg (principal); M79.605 Pain in left leg
CPT/HCPCS: 93925

== ENCOUNTER 2023-08-08 12:57 | Outpatient (AMB) | payer MEDICARE, MEDICAID, SELFPAY ==
--- NOTE | 2023-08-08 12:58 | A.OFFVIS_ITS ---
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 Patient has swelling in both legs, ankles and feet for the last year and a half. Has a walker and ambulates around his house. Says he had a spinal/neck injury around 20 years ago as well as both hips replaced. Believed his leg pain was because of that. 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 He has had arterial workup by his primary care physician. He has persistent swelling and discomfort of his lower extremities. He has had multiple previous cervical spine surgery. In addition he has had hip surgery. He has persistent pain in his lower extremities. He reports some swelling. He now presents to us for vascular follow-up. [facility] Medical History Erectile dysfunction Hyperlipidemia associated with type 2 diabetes mellitus Type 2 diabetes mellitus Fusion of spine, cervical region High cholesterol HTN (hypertension) Urinary incontinence Spinal cord injury, cervical region Diabetes ETOH abuse Unspecified lack of coordination Lumbar radiculopathy Surgical History Hx of hand surgery Hx of total hip arthroplasty History of back surgery Social History Household Members: Significant Other Housing: Apartment Do you presently have visiting nurse or other home services: No Alcohol intake: current Alcohol intake frequency: holidays/special occasions only Comment: 1 assist standby Patient Tobacco Use Status: Former Tobacco user Quit Date: 25 yrs ago Tobacco use type: Cigarette Years Smoked: 20 service: No Current occupational status: unemployed Review of Systems Const Reports as per HPI ENT Reports no additional complaints Card Denies chest pain, Denies chest pain at rest and Denies chest pain with activity Resp Denies chest congestion and Denies cough GI Reports no additional complaints Musc Details: pain over varicosities, aching of lower extremities, swelling, cramping, heaviness and tiredness, itching Denies abnormal gait Skin/Breast Reports pruritus and Denies wounds Neuro Reports no additional complaints and Denies abnormal gait Psych Denies no additional complaints Physical Exam Const General: cooperative, healthy appearing and comfortable Orientation/consciousness: oriented to person, oriented to place and oriented to time Neck Carotids: no bruits Chest Chest palpation & inspection: normal inspection of the chest and normal palpation of entire chest wall Resp Effort & Inspection: normal respiratory effort and able to speak in complete sentences Cardio Other: Bilateral palpable dorsalis pedis pulses Rate: regular rate Heart sounds: S1 normal heart sound present and S2 normal heart sound present Peripheral pulses: Peripheral pulses 2+ throughout GI Inspection: Yes normal to inspection Skin Other: +2 edema, General skin exam: dry skin Neuro General: oriented to person, oriented to place and oriented to time Extrem Right lower extremity: full ROM, normal capillary refill and edema Left lower extremity: full ROM, normal capillary refill and edema Psych Mental Status: mental status grossly normal Assessment & Plan Assessment & Plan (1) Varicose veins of right lower extremity with inflammation: Code(s): I83.11 - Varicose veins of right lower extremity with inflammation Plan: In short patient has lower extremity pain. Unclear etiology of this. It does not appear to be arterial as I did review his noninvasive testing and he does ramirez ve palpable pulses. I have taken the liberty of ordering venous insufficiency testing to rule that out. It does appear that he does have a significant neurogenic component to this although he has had previous cervical spine surgery. Does report neuropathy type symptoms the lower extremity. Once again we will order venous insufficiency testing and have the patient follow-up. Thank you for allowing us to assist in his care. Orders: Orders US venous insuf bilat 1 Week I83.11 - Varicose veins of right lower extremity with inflammation Coding Level of Care Code New Pt Level 4 (38377) Diagnoses Varicose veins of right lower extremity with inflammation I83.11
== END 2023-08-08 13:35 | disposition home or self-care (01) ==
LOC: HO.HVS 12:57
PROVIDERS: PCP Internal Medicine; Visit Provider Surgery Vascular Surgery
DX: I83.11 Varicose veins of right lower extremity with inflammation (principal)
CPT/HCPCS: 99203

== ENCOUNTER → 2023-08-08 12:57 | Outpatient (BNVA) | payer MEDICARE, MEDICAID, SELFPAY | PROVIDERS: PCP Internal Medicine; Visit Provider Surgery Vascular Surgery | DX: I83.11 Varicose veins of right lower extremity with inflammation (principal) | CPT/HCPCS: 99202 ==

== ENCOUNTER 2023-08-28 12:41 | Outpatient (REF) | payer MEDICARE, MEDICAID, SELFPAY ==
--- NOTE | ~2023-08-28 | US_ITS ---
EXAMINATION: US LOWER EXTREMITY VENOUS (REFLUX EXAM), BILATERAL CLINICAL INFORMATION: Chronic venous insufficiency with lower extremity varicose veins and pain COMPARISON: None. TECHNIQUE: Color flow triplex imaging and compression Doppler was performed to evaluate both the deep and the superficial systems bilaterally. To evaluate the superficial system, the examination was performed in the upright position. Color-flow Doppler ultrasound and compression ultrasound were utilized. In addition, maneuvers were utilized to demonstrate reflux. FINDINGS: 1. DEEP VENOUS ULTRASOUND OF THE RIGHT LOWER EXTREMITY: Common Femoral Vein: Compressible, normal respiratory variation and augmented flow. Femoral Vein: Compressible, normal color flow and augmentation. Popliteal Vein: Compressible, normal augmentation. Deep Reflux: There is no evidence of reflux in the deep system in either the common femoral vein, superficial femoral or the popliteal vein. There is no evidence of a Turcios's cyst. 2. SUPERFICIAL ULTRASOUND WITH DOPPLER OF RIGHT LOWER EXTREMITY: GREAT SAPHENOUS VEIN: Saphenofemoral Junction: 0.7 cm; Reflux: 0 ms Proximal Thigh: 0.4 cm; Reflux: 0 ms Mid Thigh: 0.4 cm; Reflux: 0 ms Distal Thigh: 0.4 cm; Reflux: 0 ms At Knee: 0.4 cm; Reflux: 0 ms. Small amount of wall calcification Proximal Calf: 0.3 cm; Reflux: 0 ms Mid Calf: 0.3 cm; Reflux: 2260 ms Distal Calf: 0.3 cm; Reflux: 0 ms DUPLICATED MEDIAL GREAT SAPHENOUS VEIN: Diameter: None imaged Reflux: NA DUPLICATED LATERAL GREAT SAPHENOUS VEIN: Diameter: None imaged Reflux: NA SMALL SAPHENOUS VEIN: Saphenopopliteal Junction: 0.3 cm; Reflux: 0 ms Proximal: 0.2 cm; Reflux: 0 ms Distal: 0.2 cm; Reflux: 0 ms VEIN OF GIACOMINI: Size: NA Reflux: NA PERFORATORS: Location: Mid calf Size: 0.3 cm Reflux: None VARICOSITIES: Location: None significant. Size: NA Reflux: NA 3. DEEP VENOUS ULTRASOUND OF THE LEFT LOWER EXTREMITY: Common Femoral Vein: Compressible, normal respiratory variation and augmented flow. Femoral Vein: Compressible, normal color flow and augmentation. Popliteal Vein: Compressible, normal augmentation. Deep Reflux: There is no evidence of reflux in the deep system in either the common femoral vein, superficial femoral or the popliteal vein. There is no evidence of a Turcios's cyst. 4. SUPERFICIAL ULTRASOUND WITH DOPPLER OF LEFT LOWER EXTREMITY: GREAT SAPHENOUS VEIN: Saphenofemoral Junction: 0.7 cm; Reflux: 0 ms Proximal Thigh: 0.4 cm; Reflux: 0 ms Mid Thigh: 0.4 cm; Reflux: 0 ms Distal Thigh: 0.4 cm; Reflux: 0 ms At Knee: 0.5 cm; Reflux: 0 ms Proximal Calf: 0.3 cm; Reflux: 0 ms Mid Calf: 0.2 cm; Reflux: 1772 ms Distal Calf: 0.2 cm; Reflux: 0 ms DUPLICATED MEDIAL GREAT SAPHENOUS VEIN: Diameter: None imaged Reflux: NA DUPLICATED LATERAL GREAT SAPHENOUS VEIN: Diameter: None imaged. Reflux: NA SMALL SAPHENOUS VEIN: Saphenopopliteal Junction: 0.3 cm; Reflux: 0 ms Proximal: 0.2 cm; Reflux: 0 ms Distal: 0.2 cm; Reflux: 0 ms VEIN OF GIACOMINI: Size: NA Reflux: NA PERFORATORS: Location: None significant Size: NA Reflux: NA VARICOSITIES: Location: None significant Size: NA Reflux: NA US/US venous insuf bilat IMPRESSION: Right: Focal segmental area of reflux within the great saphenous vein in the mid calf. No significant reflux is seen otherwise in the right lower extremity. No significant varicose veins. Incidental note is made of wall calcification in the great saphenous vein at the knee consistent with prior thrombophlebitis Left: Focal segmental area of reflux in the great saphenous vein in the mid calf. No significant reflux is seen otherwise in the left lower extremity. No significant varicose veins
== END 2023-08-28 12:42 | disposition home or self-care (01) ==
LOC: HO.US 12:41
PROVIDERS: PCP Internal Medicine; Visit Provider Surgery Vascular Surgery
DX: I83.11 Varicose veins of right lower extremity with inflammation (principal)
CPT/HCPCS: 93970

== ENCOUNTER 2023-10-01 12:47 | Outpatient (AMB) | payer MEDICARE, MEDICAID, SELFPAY ==
--- NOTE | 2023-10-01 13:15 | MHC.OFFVIS ---
Intake Visit Reasons: follow up [facility] 08/28/2023 Intake Note: follow up [facility] 08/28/23 for bilateral LE swelling in bilateral LE and feet.Pt states right LE is worse than Left LE. Pt has been wearing light compression. Pt states that he has to elevate or the swelling gets very severe. Accompanied by: Self / Same As Patient Allergies Seasonal Allergy (Mild, Uncoded 10/01/23 13:20) Sneezing HPI HPI follow up [facility] 08/28/2023: Details: Complex 58-year-old gentleman presents for arm swelling and pain of his lower extremities. He has had previous arterial workup has undergone most recently venous insufficiency testing. He also has had cervical spine surgery. Has persistent swelling of his lower extremities. He he now presents for routine follow-up. [facility] Medical History Erectile dysfunction Hyperlipidemia associated with type 2 diabetes mellitus Type 2 diabetes mellitus Fusion of spine, cervical region High cholesterol HTN (hypertension) Urinary incontinence Spinal cord injury, cervical region Diabetes ETOH abuse Unspecified lack of coordination Lumbar radiculopathy Surgical History Hx of hand surgery Hx of total hip arthroplasty History of back surgery Social History Household Members: Significant Other Housing: Apartment Do you presently have visiting nurse or other home services: No Alcohol intake: current Alcohol intake frequency: holidays/special occasions only Comment: 1 assist standby Patient Tobacco Use Status: Former Tobacco user Quit Date: 25 yrs ago Tobacco use type: Cigarette Years Smoked: 20 service: No Current occupational status: unemployed Review of Systems Const All systems reviewed & are unremarkable except as noted in HPI and below Reports no additional complaints ENT Reports Normal hearing present Card Denies chest pain, Denies chest pain at rest, Denies chest pain with activity and Denies pedal edema Resp Denies cough GI Denies abdominal pain Musc Denies abnormal gait, Denies muscle cramps and Denies radiating pain into limb Skin/Breast Denies skin ulcer and Denies wounds Neuro Reports Normal hearing present and Denies abnormal gait Psych Reports no additional complaints Physical Exam Const General: cooperative, healthy appearing and comfortable Orientation/consciousness: oriented to person, oriented to place and oriented to time HEENT Head: Yes normal to inspection Neck Neck: Yes normal visual inspection Carotids: no bruits Chest Chest palpation & inspection: normal inspection of the chest Resp Effort & Inspection: normal respiratory effort and able to speak in complete sentences Auscultation: clear to auscultation bilaterally, no crackles, no rales, no rhonchi and no wheezes Cardio Rate: regular rate Rhythm: regular rhythm Heart sounds: S1 normal heart sound present and S2 normal heart sound present Bruits: no carotid bruits Peripheral pulses: Peripheral pulses 2+ throughout GI Inspection: Yes normal to inspection Skin Other: Right in cm: Thigh 46 Knee 43 Calf 38 Ankle 28 Left in cm: Thigh 47 Knee 41 Calf 37 Ankle 35 Hip/waist 106 Wounds: no wounds Hair: normal Neuro General: oriented to person, oriented to place and oriented to time Cranial nerves: Yes CN's II-XII intact bilaterally and Yes Normal hearing present Cognition (Neuro): normal cognition Motor exam (neuro): 5/5 motor strength present throughout Extrem Other: venous exam: No significant superficial varicosities or spider telangiectasias, minimal edema General: No clubbing, No cyanosis and No edema Psych Appearance: grossly normal Mental Status: mental status grossly normal Speech and movement: Normal speech and movement present Results Reviewed Results Reviewed: Brief summary of venous insufficiency testing is as follows: right great saphenous vein: negative right small saphenous vein: negative right accessory vein: none present left great saphenous vein: negative left small saphenous vein: negative left accessory vein: none present Please note there is no evidence of any venous aneurysms or significant tortuosity Assessment & Plan Assessment & Plan (1) Varicose veins of right lower extremity with inflammation: Code(s): I83.11 - Varicose veins of right lower extremity with inflammation Category: Medical Plan: In short patient is negative for any significant venous disease. Will treat for lymphedema. (2) Lymphedema: Code(s): I89.0 - Lymphedema, not elsewhere classified Category: Medical Plan: In short the patient has late on sent lymphedema. The patient has been on conservative treatment for at least 3 months with minimal relief. Patient has tried 30 mm of mercury compression garments, elevation, exercise healthy diet and doing manual says self MLD to the best of their ability for over 4 weeks but with no significant relief. She has been compliant with the program but has provided minimal relief. In addition on physical we are noticing hyperpigmentation, lymphorrhea, and hyperplasia. It appears that she has stage 2 lymphedema. Patient has completed multiple forms of conservative therapy yet significant symptoms remain. Patient requires the use of a pneumatic compression device which we will assist in trying to have the patient obtain them. A pneumatic compression device will help reduce swelling and other lymphedema comorbidities. Thank you for allowing us to assist in this patient's care. Coding Level of Care Code Est Pt Level 4 (83177) Diagnoses Varicose veins of right lower extremity with inflammation I83.11 Lymphedema I89.0
== END 2023-10-01 13:53 | disposition home or self-care (01) ==
PROVIDERS: PCP Internal Medicine; Visit Provider Surgery Vascular Surgery
DX: I83.11 Varicose veins of right lower extremity with inflammation (principal); I89.0 Lymphedema, not elsewhere classified
CPT/HCPCS: 99214

== ENCOUNTER 2023-10-01 14:16 | Outpatient (REF) | payer MEDICARE, MEDICAID, SELFPAY ==
[2023-10-01 17:58] LABS: Alanine Aminotransferase 12 U/L (0-40); Albumin Level 4.3 g/dL (3.5-5.0); Alkaline Phosphatase 72 U/L (39-117); Anion Gap 12 (12-20); Aspartate Amino Transferase 12 U/L (5-37); Bilirubin Total 0.5 mg/dL (0.0-1.0); Blood Urea Nitrogen 17 mg/dL (9-16); Calcium 9.6 mg/dL (8.4-10.2); Carbon Dioxide 28 mmol/L (22-29); Chloride 105 mmol/L (96-108); Cholesterol 136 mg/dL (<200); Estimated Glomerular Filt Rate > 60; Glucose Random 125 mg/dL (60-115); HDL Cholesterol 45 mg/dL (>40); LDL Cholesterol Calculated 77 mg/dL (<100); Sodium 141 mmol/L (135-145); Total Protein 7.2 g/dL (6.5-8.0); Triglycerides 74 mg/dL (<150)
== END 2023-10-01 14:17 | disposition home or self-care (01) ==
LOC: HO.CHCLDS 14:16
PROVIDERS: Visit Provider Internal Medicine
DX: E11.65 Type 2 diabetes mellitus with hyperglycemia (principal); I83.11 Varicose veins of right lower extremity with inflammation; I89.0 Lymphedema, not elsewhere classified
CPT/HCPCS: 36415; 80053; 80061; 99212

== ENCOUNTER 2023-10-28 13:47 | Outpatient (AMB) | payer MEDICARE, MEDICAID, SELFPAY ==
--- NOTE | 2023-10-28 13:51 | A.OFFVIS_ITS ---
Vital Signs 10/28/23 13:55 Height 6 ft 1 in Weight 210 lb BMI 27.7 Intake Visit Reasons: Lymphedema Clinic Intake Note: follow up LE swelling, pt states Right LE is worse than Left LE, but Left LE is starting to swell more, he states he has not been as active and up and walking. Accompanied by: Self / Same As Patient Allergies Seasonal Allergy (Mild, Uncoded 10/28/23 13:57) Sneezing [facility] Lymphedema Clinic: Details: Very pleasant 58-year-old patient presents for evaluation of lymphedema. The patient complains of lymphedema located bilateral lower extremity. This has been present for approximately 2 year. Symptoms that the patient has been experiencing include hyperkeratosis hyperpigmentation and actually reports bilateral lower extremities are worse on today's visit. Patient has had a trial of conservative therapy inclusive compression garments of 20-30 mmHg starting on 08/08/2023. In addition the patient has tried exercise limb elevation and home manual lymph decongestive therapy for proximally 30 minutes a day. They have not experienced any significant relief from the swelling and discomfort. They now present for follow-up evaluation. [facility] Medical History Erectile dysfunction Hyperlipidemia associated with type 2 diabetes mellitus Type 2 diabetes mellitus Fusion of spine, cervical region High cholesterol HTN (hypertension) Urinary incontinence Spinal cord injury, cervical region Diabetes ETOH abuse Unspecified lack of coordination Lumbar radiculopathy Surgical History Hx of hand surgery Hx of total hip arthroplasty History of back surgery Social History Household Members: Significant Other Housing: Apartment Do you presently have visiting nurse or other home services: No Alcohol intake: current Alcohol intake frequency: holidays/special occasions only Comment: 1 assist standby Patient Tobacco Use Status: Former Tobacco user Quit Date: 25 yrs ago Tobacco use type: Cigarette Years Smoked: 20 service: No Current occupational status: unemployed Review of Systems Const Reports as per HPI ENT Reports no additional complaints Card Denies chest pain, Denies chest pain at rest and Denies chest pain with activity Resp Denies chest congestion and Denies cough GI Reports no additional complaints Musc Details: pain over varicosities, aching of lower extremities, swelling, cramping, heaviness and tiredness, itching Denies abnormal gait Skin/Breast Reports pruritus and Denies wounds Neuro Reports no additional complaints and Denies abnormal gait Psych Denies no additional complaints Physical Exam Vital Signs: BMI result Body Mass Index 27.7 Const General: cooperative, healthy appearing and comfortable Orientation/consciousness: oriented to person, oriented to place and oriented to time Neck Carotids: no bruits Chest Chest palpation & inspection: normal inspection of the chest and normal palpation of entire chest wall Resp Effort & Inspection: normal respiratory effort and able to speak in complete sentences Cardio Rate: regular rate Heart sounds: S1 normal heart sound present and S2 normal heart sound present Peripheral pulses: Peripheral pulses 2+ throughout GI Inspection: Yes normal to inspection Skin Other: +2 edema, bilateral lower extremity General skin exam: dry skin Neuro General: oriented to person, oriented to place and oriented to time Extrem Other: Right in cm: Thigh 48 Knee 44.5 Calf 38.5 Ankle 32.5 Left in cm: Thigh 47.5 Knee 40.5 Calf 38.5 Ankle 34.2 Hip/waist 107.25 Right lower extremity: full ROM, normal capillary refill and edema Left lower extremity: full ROM, normal capillary refill and edema Psych Mental Status: mental status grossly normal Assessment & Plan Assessment & Plan (1) Lymphedema: Code(s): I89.0 - Lymphedema, not elsewhere classified Category: Medical Plan: In short the patient has late on sent lymphedema. The patient has been on conservative treatment for at least 3 months with minimal relief. Patient has tried 30 mm of mercury compression garments, elevation, exercise healthy diet and doing manual says self MLD to the best of their ability for over 4 weeks but with no significant relief. He has been compliant with the program but has provided minimal relief. In addition on physical we are noticing hyperpigmentation, and difficulty ambulating. It appears that she has stage 2 lymphedema. Patient has completed multiple forms of conservative therapy yet significant symptoms remain. Patient requires the use of a pneumatic compression device which we will assist in trying to have the patient obtain them. A pneumatic compression device will help reduce swelling and other lymphedema comorbidities. Thank you for allowing us to assist in this patient's care. Coding Level of Care Code Est Pt Level 4 (44488) Diagnoses Lymphedema I89.0
[2023-10-28 13:55] VITALS: BMI 27.7
== END 2023-10-28 14:55 | disposition home or self-care (01) ==
PROVIDERS: PCP Internal Medicine; Referring Provider Orthopaedic Surgery; Visit Provider Surgery Vascular Surgery
DX: I89.0 Lymphedema, not elsewhere classified (principal)
CPT/HCPCS: 99214

== ENCOUNTER → 2023-10-28 13:47 | Outpatient (BNVA) | payer MEDICARE, MEDICAID, SELFPAY | PROVIDERS: PCP Internal Medicine; Visit Provider Surgery Vascular Surgery | DX: I89.0 Lymphedema, not elsewhere classified (principal) | CPT/HCPCS: 99212 ==

== ENCOUNTER 2024-11-10 10:57 | Outpatient (AMB) | payer MEDICARE, MEDICAID, SELFPAY ==
--- NOTE | 2024-11-10 11:04 | A.OFFVIS_ITS ---
Intake Visit Reasons: leg swelling Intake Note: Patient presents for leg swelling and pain. Patient has been using his lymphedema pumps but that works sometimes . As soon as he is done using the pumps he states his feet swell and hurt right away. He is ambulating with a walker due to the pain and swelling. Accompanied by: Self / Same As Patient Allergies Seasonal Allergy (Mild, Uncoded 10/28/23 13:57) Sneezing HPI HPI leg swelling: Details: Jonatan is presenting today for concerns of bilateral, L>R, lower extremity swelling and discomfort. He has been using his compression pumps daily, which he states has been helping. He states, however, that he is getting intermittent sharp shooting pains to the bottom of his feet as well as often feeling like he is walking on sand/[place]. He states this has been going on for some time now and is causing him difficulty in walking. He states he has been having to use a rolling walker to help him walk. He states the swelling has gone down significantly using the lymphedema pumps daily. He denies any recent falls or injuries/wounds. [facility] Medical History Erectile dysfunction Hyperlipidemia associated with type 2 diabetes mellitus Type 2 diabetes mellitus Fusion of spine, cervical region High cholesterol HTN (hypertension) Urinary incontinence Spinal cord injury, cervical region Diabetes ETOH abuse Unspecified lack of coordination Lumbar radiculopathy Surgical History Hx of hand surgery Hx of total hip arthroplasty History of back surgery Social History Household Members: Significant Other Housing: Apartment Do you presently have visiting nurse or other home services: No Alcohol intake: current Alcohol intake frequency: holidays/special occasions on ly Comment: 1 assist standby Patient Tobacco Use Status: Former Tobacco user Tobacco use type: Cigarette Years Smoked: 20 service: No Current occupational status: unemployed Review of Systems Const Reports as per HPI and Denies weakness ENT Reports Normal hearing present and Denies dizziness Card Reports as per HPI, Denies chest pain, Denies chest pain at rest, Denies chest pain with activity, Denies dyspnea and Denies dyspnea on exertion Resp Reports as per HPI, Denies cough, Denies dyspnea and Denies dyspnea on exertion GI Reports as per HPI, Denies abdominal pain, Denies nausea and Denies vomiting Musc Denies numbness Skin/Breast Reports as per HPI, Denies erythema and Denies wounds Neuro Reports Normal hearing present, Denies dizziness, Denies numbness, Denies Sensory deficit (Neuro) and Denies weakness Psych Reports no additional complaints Endo Reports no additional complaints Physical Exam Const General: healthy appearing and no acute distress Orientation/consciousness: patient oriented x3 HEENT Head: Yes normal to inspection Ears: hearing grossly normal bilaterally Mouth: Normal oral and palatal mucosa present Resp Effort & Inspection: normal respiratory effort and able to speak in complete sentences Auscultation: clear to auscultation bilaterally Cardio Jugular venous distension: no JVD Rate: regular rate Rhythm: regular rhythm Heart sounds: S1 normal heart sound present and S2 normal heart sound present Bruits: no abdominal aortic bruits, no carotid bruits, no femoral bruits and no renal bruits Peripheral pulses: Peripheral pulses 2+ throughout GI Inspection: Yes normal to inspection Palpation (GI): No Abdominal aortic bruit present Skin General skin exam: no rashes or lesions noted Wounds: no wounds Hair: normal Neuro General: patient oriented x3 Cranial nerves: Yes Normal hearing present Cognition (Neuro): normal cognition Gait exam (Neuro): Normal gait present Motor exam (neuro): 5/5 motor strength present throughout Sensory Exam: No Sensory deficit (Neuro) Extrem Other: Bilateral lower extremities: +1 nonpitting edema noted. Palpable DP pulses. Feet warm to the touch. Erythematous discoloration noted from the tips of the toes to mid-calf. No wounds noted. General: Yes normal to inspection, Yes full ROM, Yes capillary refill normal and Yes normal gait Assessment & Plan Assessment & Plan (1) Peripheral neuropathy: Code(s): G62.9 - Polyneuropathy, unspecified Category: Medical Qualifiers: Peripheral neuropathy type: polyneuropathy, other Qualified Code(s): G62.89 - Other specified polyneuropathies Plan: Jonatan is presenting today for concerns of bilateral lower extremity swelling but also increased intermittent sharp, shooting pain as well as feelings of walking on sand or [place]. He continues with his lymphedema compression pumps daily. We discussed the importance of continuing with the pumps daily. We discussed that this pain/discomfort that he is experiencing appears to be more of a neuropathic-type pain and we recommend he follow up with his PCP for further evaluation/possible pain mgte referral. We discussed that if he has any other vascular concerns, he can reach out to us at any point. Thank you for allowing us to participate in the patient's care. If there are any questions or concerns, please do not hesitate to reach out to us. Coding Level of Care Code Est Pt Level 3 (04172) Diagnoses Other polyneuropathy G62.89 Peripheral neuropathy type: polyneuropathy, other
--- OUTSIDE RECORDS SUMMARY | 2024-11-10 12:36 | XMS_ITS | Encounter Summary ---
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 Name Role Phone Garry Huggins MD Primary Care Prov ider Reason for Visit * Reason Onset Date Comments Verbal Orders 04/29/2023 Encounter Details Date Type Department Care Team ([facility] Contact Info) Description 04/29/2023 Telephone [facility] [address] [place] [address] Garry Huggins MD [address] [place] [address] Verbal Orders Social History Tobacco Use Types Packs/Day Years Used Date Smoking Tobacco: Former Cigarettes Passive Smoke Exposure: Never Smokeless Tobacco: Never Alcohol Use Standard Drinks/Week Comments Yes 0 (1 standard drink = 0.6 oz pur e alcohol) Depression Answer Date Recorded Patient Health Questionnaire-9 Score 1 09/13/2022 Housing Stability Answer Date Recorded What is your housing situation today? I have sonny campuzano 03/25/[address] you li ve. Do you have problems with any of the following? None of the above 03/25/2023 Food Insecurity Answer Date Recorded Within the past 12 months, y ou worried that your food would run out before you got money to buy more: Never True 03/25/2023 Within the past 12 months,th e food you bought just didn't last and you didn't have enough money to get more: Never True Transportation Answer Date Recorded In the past 12 months, has l ack of transportation kept you from medical appts, meetings, work or from getting things needed for daily living? No 03/25/2023 Utilities Answer Date Recorded In the past 12 months, has t he electric, gas, oil or water company threatened to shut off services in your home? No 03/25/2023 Depression Answer Date Recorded Patient Health Questionnaire-2 Score 1 09/13/2022 Sex and Gender Information Value Date Recorded Sex Assigned at Male 04/09/2022 10:36 AM EDT Legal Sex Male 10:36 AM EDT Gender Identity Choose not to disclose 10:36 AM EDT Sexual Orientation Choose not to disclose 2021 10:36 AM EDT documented as of this encounter Miscellaneous Notes * Telephone Encounter - Carol Edmond RN - 04/30/2023 9:37 AM EST Returned call to Diane regarding message below. Diane informed of PCP ok for VO for OT once weekly x 6 weeks. * Telephone Encounter - Shelia Braun - 04/29/2023 4:27 PM EST Tc from Diane requesting verbal orders for Occupational Therapy 1 to 6 weeks Please call Diane [phone] documented in this encounter Plan of Treatment Not on file documented as of this encounter Visit Diagnoses Not on filedocumented in this encounter Additional Health Concerns Assessment Noted Time PHQ-9 Depression Total Score: 1 09/14/19 23 10:41 AM EDT documented as of this encounter Care Teams Mirror Finishing Machine Operator Relationship Specialty Start Date End Date Garry Hgugins MD [address] [place] [id number] PCP - General Internal Medicine 03/20/19 documented as of this encounter
== END 2024-11-10 11:32 | disposition home or self-care (01) ==
PROVIDERS: PCP Internal Medicine; Visit Provider Physician Assistant Surgical
DX: G62.89 Other specified polyneuropathies (principal)
CPT/HCPCS: 99213

== ENCOUNTER → 2024-11-10 10:57 | Outpatient (BNVA) | payer MEDICARE, MEDICAID, SELFPAY | PROVIDERS: PCP Internal Medicine; Visit Provider Surgery Vascular Surgery | DX: G62.89 Other specified polyneuropathies (principal) | CPT/HCPCS: 99212 ==

== ENCOUNTER 2025-04-06 09:19 | Outpatient (REF) | payer MEDICARE, MEDICAID, SELFPAY ==
--- OUTSIDE RECORDS SUMMARY | 2025-04-05 09:00 | XMS_ITS | Encounter Summary ---
Author Organization [employer] Address [address] [place] [address] [facility] [place] [address] Care Team Providers Care Purchasing Internship Name Role Phone Garry Huggins MD Primary Care Prov ider Reason for Referral * Consultation (Routine) - Authorized Specialty Diagnoses / Procedures Referred By Warner almeida Referred To Contact Pain Medicine Diagnoses Cervical myelopathy (CMS/HCC) (HCC) Garry Huggins MD [address] [place] [address] Phone: tel: fax: Chuy Maldonado MD [address] [place] [address] [address] [place] [address] Phone: tel: fax: Referral ID Status Reason Start Date Expiration Date Visits Requested Visits Authorized [id number] Authorized Specialty Services Required 04/05/2026 1 1 * Consultation (Routine) - Authorized Specialty Diagnoses / Procedures Referred By Warner almeida Referred To Contact Optometry Diagnoses Type 2 diabetes mellitus with hyperglycemia, without long-term current use of insulin (HCC) Garry Huggins MD [address] [place] [address] Phone: tel: fax: [facility] [address] [place] [address] Phone: tel:[phone] fax: Referral ID Status Reason Start Date Expiration Date Visits Requested Visits Authorized [id number] Authorized Specialty Services Required 04/05/2026 1 1 Encounter Details Date Type Department Care Team (Latest Contact Info) Description 04/05/2025 9:00 AM EDT Telemedicine [facility] MED & PEDS [address] [place] [address] Garry Huggins MD [address] [place] [address] Screening for colon cancer (Primary Dx); Type 2 diabetes mellitus with hyperglycemia, without long-term current use of insulin (HCC); Prostate cancer screening; Diabetes mellitus due to underlying condition with diabetic polyneuropathy, without long-term current use of insulin (HCC); Cervical myelopathy (CMS/HCC) (HCC); Essential hypertension; Mixed hyperlipidemia Social History Tobacco Use Types Packs/Day Years Used Date Smoking Tobacco: Former Cigarettes Passive Smoke Exposure: Never Smokeless Tobacco: Never Alcohol Use Standard Drinks/Week Comments Yes 0 (1 standard drink = 0.6 oz pur e alcohol) Depression Answer Date Recorded Patient Health Questionnaire-9 Score 5 04/05/2025 Patient Health Questionnaire-9 Score 5 04/05/2025 Last PHQ-9: Questionnaire Data Not on file 1 Housing Stability Answer Date Recorded What is your housing situation today? I have sonny sing 02/13/[address] you li ve. Do you have problems with any of the following? None of the above 02/13/2024 Food Insecurity Answer Date Recorded Within the past 12 months, y ou worried that your food would run out before you got money to buy more: Sometimes True 2023 Within the past 12 months,th e food you bought just didn't last and you didn't have enough money to get more: Sometimes True 02/13/2024 Transportation Answer Date Recorded In the past 12 months, has l ack of transportation kept you from medical appts, meetings, work or from getting things needed for daily living? Yes, it has kept me from non-medical meetings, work, or getting things that I need 02/13/2024 Utilities Answer Date Recorded In the past 12 months, has t he electric, gas, oil or water company threatened to shut off services in your home? No 02/13/2024 Depression Answer Date Recorded Patient Health Questionnaire-2 Score 4 04/05/2025 Internet Access Answer Date Recorded Internet Access Q1 No 02/13/2024 Internet Access Q2 I cannot afford it;I do not w ant or need it 02/13/2024 Sex and Gender Information Value Date Recorded Sex Assigned at Male 04/09/2022 10:36 AM EDT Legal Sex Male 10:36 AM EDT Gender Identity Choose not to disclose 10:36 AM EDT Sexual Orientation Choose not to disclose 2021 10:36 AM EDT documented as of this encounter Functional Status * Over the past 2 weeks, how often have you been bothered by any of the following problems? Question Answer Date of Assessment Author Patient Health Questionnaire-2 Score 4 03/11 9:04 AM Mary Waddell MA * Little interest or pleasure in doing things Answer Date of Assessment Author More than half the days 04/05/2025 9:04 AM EDT Mary Caldwell MA * Feeling down, depressed, or hopeless Answer Date of Assessment Author More than half the days 04/05/2025 9:04 AM Mary Spain MA * Trouble falling or staying asleep, or sleeping too much Answer Date of Assessment Author Several days 04/05/2025 9:04 AM Mary Waddell MA * Feeling tired or having little energy Answer Date of Assessment Author Not at all 04/05/2025 9:04 AM Mary Waddell MA * Poor appetite or overeating Answer Date of Assessment Author Not at all 04/05/2025 9:04 AM Mary Waddell MA * Feeling bad about yourself - or that you are a failure or have let yourself or your family down Answer Date of Assessment Author Not at all 04/05/2025 9:04 AM Mary Waddell MA * Trouble concentrating on things, such as reading the newspaper or watching television Answer Date of Assessment Author Not at all 04/05/2025 9:04 AM Mary Waddell MA * Moving or speaking so slowly that other people could have noticed? Or the opposite - being so fidgety or restless that you have been moving around a lot more than usual. Answer Date of Assessment Author Not at all 04/05/2025 9:04 AM EDMary Hale MA * Thoughts that you would be better off or hurting yourself in some way Answer Date of Assessment Author Not at all 04/05/2025 9:04 AM EDT Mary Gould MA * Patient Health Questionnaire-9 Score Answer Date of Assessment Author 5 04/05/2025 9:04 AM Mary Waddell MA * How difficult have these problems made it for you to do your work, take care of things at home, or get along with other people? Answer Date of Assessment Author Somewhat difficult 04/05/2025 9:04 AM Mary Waddell MA documented as of this encounter Progress Notes * Mary Gould MA - 04/05/2025 9:00 AM EDT * Garry Patiño MD - 04/05/2025 9:00 AM EDT Subjective Patient ID: Jonatan Degroot is a 60 y.o. adult who presents for No chief complaint on file.. Hypertension This is a chronic problem. Pertinent negatives include no chest pain, headaches, palpitations or shortness of breath. Review of Systems Respiratory: Negative for shortness of breath. Cardiovascular: Negative for chest pain and palpitations. Neurological: Negative for headaches. Objective Physical Exam Neurological: General: No focal deficit present. Mental Status: Jonatan is oriented to person, place, and time. Psychiatric: Mood and Affect: Mood normal. Behavior: Behavior normal. Assessment/Plan Problem List Items Addressed This Visit Essential hypertension Told to keep low sodium diet and exercise as tolerated, keep blood pressure log, follow up in 3 months Hyperlipidemia On atorvastatin, continue lifestyle changes Type 2 diabetes mellitus (HCC) Relevant Orders CBC auto differential Comprehensive Metabolic Panel Hemoglobin A1c Albumin, Random Urine W/Creatinine Lipid Panel, Standard TSH W/Reflex to FT4 Referral to Optometry Cervical myelopathy (CMS/HCC) (HCC) Followed by neurosurgery, no new symptoms Relevant Orders Referral to Pain Medicine Screening for colon cancer - Primary Relevant Orders Cologuard?? colon cancer screening Diabetes mellitus due to underlying condition with diabetic polyneuropathy, without long-term current use of insulin (HCC) New labs will be ordered for guidance of therapy, continue metformin, follow up in 3 months Other Visit Diagnoses Prostate cancer screening Relevant Orders PSA, Total With Reflex to PSA, Free documented in this encounter Miscellaneous Notes * Assessment & Plan Note - Garry Patiño MD - 04/05/2025 9:38 AM EDTAssociated Problem(s): Hyperlipidemia On atorvastatin, continue lifestyle changes * Assessment & Plan Note - Garry Patiño MD - 04/05/2025 9:38 AM EDTAssociated Problem(s): Essential hypertension Told to keep low sodium diet and exercise as tolerated, keep blood pressure log, follow up in 3 months * Assessment & Plan Note - Garry Patiño MD - 04/05/2025 9:37 AM EDTAssociated Problem(s): Cervical myelopathy (CMS/HCC) (HCC) Followed by neurosurgery, no new symptoms * Assessment & Plan Note - Garry Patiño MD - 04/05/2025 9:36 AM EDTAssociated Problem(s): Diabetes mellitus due to underlying condition with diabetic polyneuropathy, without long-term current use of insulin (HCC) New labs will be ordered for guidance of therapy, continue metformin, follow up in 3 months documented in this encounter Plan of Treatment Scheduled Orders Name Type Priority Associated Diagnoses Orde r Schedule CBC auto differential Lab Routine Type 2 diabetes mellitus with hyperglycemia, without long-term current use of insulin (HCC) Expected: 04/05/2025 (Approximate), Expires: 04/05/2026 Comprehensive Metabolic Panel Lab Routine Type 2 diabetes mellitus with hyperglycemia, without long-term current use of insulin (HCC) Expected: 04/05/2025 (Approximate), Expires: 04/05/2026 Hemoglobin A1c Lab Routine Type 2 diabetes mellitus with hyperglycemia, without long-term current use of insulin (HCC) Expected: 04/05/2025 (Approximate), Expires: 04/05/2026 Albumin, Random Urine W/Creatinine Lab Routine Type 2 diabetes mellitus with hyperglycemia, without long-term current use of insulin (HCC) Expected: 04/05/2025 (Approximate), Expires: 04/05/2026 Lipid Panel, Standard Lab Routine Type 2 diabetes mellitus with hyperglycemia, without long-term current use of insulin (HCC) Expected: 04/05/2025 (Approximate), Expires: 04/05/2026 TSH W/Reflex to FT4 Lab Routine Type 2 diabetes mellitus with hyperglycemia, without long-term current use of insulin (HCC) Expected: 04/05/2025 (Approximate), Expires: 04/05/2026 PSA, Total With Reflex to PSA, Free Lab Routine Prostate cancer screening Expected: 04/05/2025 (Approximate), Expires: 04/05/2026 Cologuard colon cancer screening Lab Routine Screening for colon cancer Ordered: 04/05/2025 Scheduled Referrals Name Type Priority Associated Diagnoses Orde r Schedule Referral to Optometry Outpatient Referral Routine Type 2 diabetes mellitus with hyperglycemia, without long-term current use of insulin (HCC) Expected: 04/05/2025 (Approximate), Expires: 04/05/2026 Referral to Pain Medicine Outpatient Referral Routine Cervical myelopathy ([facility]/HCC) (HCC) Expected: 04/05/2025 (Approximate), Expires: 04/05/2026 documented as of this encounter Visit Diagnoses Diagnosis Screening for colon cancer- Primary Special screening for malignant neoplasms, colon Type 2 diabetes mellitus with hyperglycemia, without long-term current use of insulin (HCC) Prostate cancer screening Special screening for malignant neoplasm of prostate Diabetes mellitus due to underlying condition with diabetic polyneuropathy, without long-term current use of insulin (HCC) Cervical myelopathy (CMS/HCC) (HCC) Cervical spondylosis with myelopathy Essential hypertension Unspecified essential hypertension Mixed hyperlipidemia documented in this encounter Additional Health Concerns Assessment Noted Time PHQ-9 Depression Total Score: 5 04/05/20 25 9:04 AM EDT documented as of this encounter Care Teams Purchasing Internship Relationship Specialty Start Date End Date Garry Huggins MD [address] [place] [address] PCP - General Internal Medicine 03/20/19 documented as of this encounter
--- OUTSIDE RECORDS SUMMARY | 2025-04-06 10:27 | XMS_ITS | Encounter Summary ---
Author Organization [employer] Address [address] 7[address] [place] [address] Care Team Providers Care Anesthesiology Fellow Name Role Phone Garry Huggins MD Primary Care Prov ider Encounter Details Date Type Department Care Team ([facility] st Contact Info) Description 07/29/2024 Orders Only [facility] MED & PEDS [address] [place] [address] ProviderRajeev MD Social History Tobacco Use Types Packs/Day Years Used Date Smoking Tobacco: Former Cigarettes Passive Smoke Exposure: Never Smokeless Tobacco: Never Alcohol Use Standard Drinks/Week Comments Yes 0 (1 standard drink = 0.6 oz pur e alcohol) Depression Answer Date Recorded Patient Health Questionnaire-9 Score 12 02/13/2024 Patient Health Questionnaire-9 Score 12 02/13/2024 Last PHQ-9: Questionnaire Data Not on file 0 02/13/2024 Housing Stability Answer Date Recorded What is [...] Date Recorded Patient Health Questionnaire-2 Score 4 02/13/2024 Internet Access Answer Date Recorded Internet Access [...] AM EDT documented as of this encounter Plan of Treatment Not on file documented as of this encounter Procedures Procedure Name Priority Date/Time Associated Diagnosis Comments HEMOGLOBIN A1C Routine 07/16/2024 10:30 AM EST documented in this encounter Results * Hemoglobin A1c (07/16/2024 10:30 AM EST) Blood Venous blood specimen / Unknown us Historical Provider LAB BLOOD ORDERABLES Jessie l Result documented in this encounter Visit Diagnoses Not on filedocumented in this encounter Additional Health Concerns Assessment Noted Time PHQ-9 Depression Total Score: 12 024 12:52 PM EDT documented as of this encounter Care Teams Anesthesiology Fellow Relationship Specialty Start Date End Date Garry Huggins MD [address] [place] [address] PCP - General Internal Medicine 03/20/19 documented as of this encounter
--- OUTSIDE RECORDS SUMMARY | 2025-04-06 10:27 | XMS_ITS | Encounter Summary ---
Author Organization [employer] Address [address] 7[address] [place] [address] Care Team Providers Care Manager Marketing Communication Name Role Phone Garry Huggins MD Primary Care Prov ider Encounter Details Date Type Department Care Team ([facility] st Contact Info) Description 06/17/2023 Telephone [facility] MEDICINE [address] [place] [address] Garry Huggins MD [address] [place], [place] [phone] Social History Tobacco Use Types Packs/Day Years [...] the past 12 months, has t he [employer], gas, oil or water company threatened to [...] encounter Miscellaneous Notes * Telephone Encounter - Miriam Gann RN - 06/17/2023 5:39 PM EST TC placed to patient regarding message below. Patient reports that he caught himself on the way down and did not hit his head and is ok, had no injuries. He states that the problem is with his feet, and he is waiting to be contacted about the referral for vascular surgery to help his feet with circulation, which will improve his balance. He declines appointment at this time and has no other concerns at this time except following up with vascular. Advised to be in touch if any needs or concerns arise. Routing to PCP so he is aware. Tc from [facility] [employer] calling to report the patient slipped of the bed on 06/14/2023 and there isno injuries or concerns to report at this time * Telephone Encounter - Migue Gould - 06/17/2023 1:53 PM EST Tc from [facility] [employer] calling to report the patient slipped of the bed on 06/14/2023 and there isno injuries or concerns to report at this time documented in this encounter Plan of Treatment Not on file documented as of this encounter Visit Diagnoses Not on filedocumented in this encounter Additional Health Concerns Assessment Noted Time PHQ-9 Depression Total Score: 1 09/14/19 23 10:41 AM EDT documented as of this encounter Care Teams Manager Marketing Communication Relationship Specialty Start Date End Date Garry Huggins MD [address] [place] [address] PCP - General Internal Medicine 03/20/19 documented as of this encounter
--- OUTSIDE RECORDS SUMMARY | 2025-04-06 10:27 | XMS_ITS | Encounter Summary ---
Author Organization [employer] Address [address] 7t [place] [address] Care Team Providers Care Mileage Clerk Name Role Phone Garry Huggins MD Primary Care Prov ider Reason for Visit * Reason Onset Date Comments Med Refill 03/26/2025 Encounter Details Date Type Department Care Team ([facility] Contact Info) Description 03/26/2025 Telephone [facility] MEDICINE [address] [place] [address] Garry Huggins MD [address] [place] [address] Med Refill Social History Tobacco Use Types Packs/Day Years [...] housing situation today? I have sonny campuzano 02/13/[address] you li [...] encounter Miscellaneous Notes * Telephone Encounter - Carina Muhammad LPN - 03/26/2025 2:11 PM EDT Medication pended to PCP. * Telephone Encounter - Kameron Ham - 03/26/2025 2:05 PM EDT TC from pt requesting medication refill. Medications needing refill : cholecalciferol (Vitamin D-3) 25 MCG tablet atorvastatin (Lipitor) 40 MG tablet metFORMIN (Glucophage) 1000 MG tablet gabapentin (Neurontin) 400 MG capsule tamsulosin (Flomax) 0.4 MG 24 hr capsule To be sent to: [facility] documented in this encounter Plan of Treatment Not on file documented as of this encounter Visit Diagnoses Not on filedocumented in this encounter Additional Health Concerns Assessment Noted Time PHQ-9 Depression Total Score: 12 024 12:52 PM EDT documented as of this encounter Care Teams Mileage Clerk Relationship Specialty Start Date End Date Garry Huggins MD [address] [place], [place] [address] [address] PCP - General Internal Medicine 03/20/19 documented as of this encounter
--- OUTSIDE RECORDS SUMMARY | 2025-04-06 10:27 | XMS_ITS | Encounter Summary ---
Author Organization [employer] Address [address] [facility] 7t [place] [address] Care Team Providers Care Supervisor Stage Carpentry Name Role Phone Garry Huggins MD Primary Care Prov ider Reason for Visit * Reason Onset Date Comments FYI 05/29/2023 Encounter Details Date Type Department Care Team ([facility] Contact Info) Description 05/29/2023 Telephone [facility] MED & PEDS [address] [place] [address] Garry Huggins MD [address] [place] [address] FYI Social History Tobacco Use Types Packs/Day Years [...] Telephone Encounter - Carol Edmond RN - 05/30/2023 12:42 PM EST Returned call to pt regarding message below. Pt states PCP at last appt referred pt for an US of his legs, unsure if it was to r/o DVT and a referral to vascular, as well send in an rx for Gabapentinand Baclofen. Note from prior visit not completed and unable to verify information. Please advise on pt POC. * Telephone Encounter - Dorian Owusu - 05/29/2023 3:42 PM EST Tc from [facility] calling to inform pcp that pt has a had a 12 pound weight gain with in a week. Pt's legs are also swollen, the right leg greater than the left. She also stated pt is waiting a vascular f/u. If any questions contact Kaela at [phone]. documented in this encounter Plan of Treatment Not on file documented as of this encounter Visit Diagnoses Not on filedocumented in this encounter Additional Health Concerns Assessment Noted Time PHQ-9 Depression Total Score: 1 09/14/19 23 10:41 AM EDT documented as of this encounter Care Teams Supervisor Stage Carpentry Relationship Specialty Start Date End Date Garry Huggins MD [address] [place] [address] PCP - General Internal Medicine 03/20/19 documented as of this encounter
--- OUTSIDE RECORDS SUMMARY | 2025-04-06 10:27 | XMS_ITS | Encounter Summary ---
Author Organization [employer] Address [address] [facility] 7t [place] [address] Care Team Providers Care Paintless Dent Repair Technician Name Role Phone Garry Huggins MD Primary Care Prov ider Reason for Visit * Reason Onset Date Comments Med Refill 04/25/2023 Encounter Details Date Type Department Care Team ([facility] Contact Info) Description 04/25/[address] [facility] MEDICINE [address] [place] [address] Garry Huggins MD [address] [place] [address] Med Refill Social History Tobacco Use Types [...] encounter Miscellaneous Notes * Telephone Encounter - Shelia Braun - 04/25/2023 2:18 PM EST Tc from [facility] with [facility] office requesting Oxycodone 5 MG (1/2 every 6 hours) Renuka stated pt had surgery with them on 03/21/2023 and office can only prescribe 6 weeks of medication. documented in this encounter Plan of Treatment Not on file documented as of this encounter Visit Diagnoses Not on filedocumented in this encounter Additional Health Concerns Assessment Noted Time PHQ-9 Depression Total Score: 1 09/14/19 23 10:41 AM EDT documented as of this encounter Care Teams Paintless Dent Repair Technician Relationship Specialty Start Date End Date Garry Huggins MD [address] [place] [address] PCP - General Internal Medicine 03/20/19 documented as of this encounter
--- OUTSIDE RECORDS SUMMARY | 2025-04-06 10:27 | XMS_ITS | Encounter Summary ---
Author Organization [employer] Address [address] [facility] 7t [place] [address] Care Team Providers Care Professor Of Public Administration Name Role Phone Garry Huggins MD Primary Care Prov ider Reason for Visit * Reason Onset Date Comments Verbal Orders 04/30/2023 Encounter Details Date Type Department Care Team ([facility] Contact Info) Description 04/30/2023 Telephone [facility] MEDICINE [address] [place] [address] Garry Huggins MD [address] [place] [address] Verbal Orders Social History Tobacco Use Types [...] Telephone Encounter - Carol Edmond RN - 05/01/2023 3:01 PM EST Tc X2 to pt regarding message from Dr Ko. Pt declined in person appt at this time and requests to wait to speak to PCP prior to scheduling in person appt at this time. Pt advised on importance of in person janny for proper evaluation of pt edema. Pt states he will return call next week to schedule if still needed. Pt advised to return call if pt has any further questions or concerns. * Telephone Encounter - Carol Edmond RN - 04/30/2023 4:11 PM EST Placed call to both [facility] and [facility] regarding VO for speech therapy and PT. VO provided. * Telephone Encounter - Carol Edmond RN - 04/30/2023 4:05 PM EST Per PCP request placed call to pt for in person evaluation instead of scheduled tele visit on 05/07/23. No answer LVM to return call to nurses. * Telephone Encounter - Jose R Edward - 04/30/2023 2:38 PM EST Tc from [facility]ovanna with [facility] requesting a verbal order to start physical therapy services for1x a week for 8 weeks. please contact at [phone] * Telephone Encounter - Migue Luis Fernando - 04/30/2023 2:24 PM EST Tc from Kaela at [facility] requesting verbal orders for speech therapy for 1x a week for 8 weeks any questions please call Kaela at [phone]. documented in this encounter Plan of Treatment Not on file documented as of this encounter Visit Diagnoses Not on filedocumented in this encounter Additional Health Concerns Assessment Noted Time PHQ-9 Depression Total Score: 1 09/14/19 23 10:41 AM EDT documented as of this encounter Care Teams Professor Of Public Administration Relationship Specialty Start Date End Date Garry Huggins MD [address] [place] [address] PCP - General Internal Medicine 03/20/19 documented as of this encounter
--- OUTSIDE RECORDS SUMMARY | 2025-04-06 10:27 | XMS_ITS | Encounter Summary ---
Author Organization [employer] Address [address] [place] [address] Care Team Providers Care Bead Wire Insulator Name Role Phone Garry Huggins MD Primary Care Prov ider Reason for Visit * Reason Comments Med Refill Encounter Details Date Type Department Care Team ([facility] st Contact Info) Description 03/25/2025 Refill [facility] MED & PEDS [address] [place], [place] [phone] Jb Wilder MD [address] [place] [address] Social History Tobacco Use Types Packs/Day Years [...] documented as of this encounter Care Teams Bead Wire Insulator Relationship Specialty Start Date End Date Garry Huggins MD [address] [place] [address] PCP - General Internal Medicine 03/20/19 documented as of this encounter
--- OUTSIDE RECORDS SUMMARY | 2025-04-06 10:27 | XMS_ITS | Encounter Summary ---
Author Organization [employer] Address [address] [facility] [address] [place] [address] Care Team Providers Care Tower Foreman Name Role Phone Garry Huggins MD Primary Care Prov ider Reason for Visit * Reason Onset Date Comments Appointment Request 04/19/2023 Encounter Details Date Type Department Care Team ([facility] Contact Info) Description 04/19/2023 Telephone [facility] MED[facility] [address] [place] [address] Garry Huggins MD [address] [place] [address] Appointment Request Social History Tobacco Use Types Packs/Day Years [...] EDT Gender Identity Choose not to disclose 2 10:36 AM EDT Sexual Orientation Choose not to disclose 2021 10:36 AM EDT documented as of this encounter Miscellaneous Notes * Telephone Encounter - Shelia Braun - 04/19/2023 1:57 PM EST Tc from pt requesting follow up appt with PCP after surgery, tag writer attempted to schedule pt for 05/20/2023 but pt want a sooner appt. documented in this encounter Plan of Treatment Not on file documented as of this encounter Visit Diagnoses Not on filedocumented in this encounter Additional Health Concerns Assessment Noted Time PHQ-9 Depression Total Score: 1 09/14/19 23 10:41 AM EDT documented as of this encounter Care Teams Tower Foreman Relationship Specialty Start Date End Date Garry Huggins MD [address] [place] [id number] PCP - General Internal Medicine 03/20/19 documented as of this encounter
--- OUTSIDE RECORDS SUMMARY | 2025-04-06 10:27 | XMS_ITS | Encounter Summary ---
Author Organization [employer] Address [address] [facility] 7[address] [place] [address] Care Team Providers Care Quality Process Engineer Name Role Phone Garry Huggins MD Primary Care Prov ider Encounter Details Date Type Department Care Team ([facility] st Contact Info) Description 06/28/2023 Orders Only [facility] MED [facility] PEDS [address] [place], [place] [phone] Garry Huggins MD [address] [place] [address] Social History Tobacco Use Types Packs/Day Years [...] Procedure Name Priority Date/Time Associated Diagnosis Comments [facility] US LOWER EXTREMITY ARTERIAL DUPLEX BILATERAL Routine 07/11/2023 1:30 PM EST documented in this encounter Results * [facility] US Lower Extremity Arterial Duplex Bilateral (07/11/2023 1:30 PM EST) 07/11/2023 1:30 PM EST Narrative [facility] - 07/16/2023 10:22 AM EST [address] [address] Ultrasound Report Signed Patient: Jonatan Degroot MR#: [id number] : 1965 Acct:[id number] Age/Sex: 58 / M ADM Date: 07/11/23 Loc: . Attending Dr: Garry Patiño MD Ordering Physician: Garry Huggins MD Date of Service: 07/11/23 Procedure(s): US arterial duplex LE Accession Number(s): [id number] cc: Garry Huggins MD EXAMINATION: Noninvasive assessment of the bilateral lower extremities with a COMPLETE ARTERIAL DUPLEX exam and ANKLE BRACHIAL INDICES (ABIs). CLINICAL INFORMATION: Bilateral leg pain COMPARISON: None available. TECHNIQUE: Duplex Doppler techniques with waveform analysis and measurement of velocities in the bilateral common femoral, profunda femoris, superficial femoral, popliteal and tibial arteries were performed. The study was performed only at rest. FINDINGS: RIGHT: Common femoral artery:183 cm/s, phasicity: Triphasic Proximal Profunda femoris artery:137 cm/s, phasicity: Triphasic Proximal Superficial femoral artery:217 cm/s, phasicity: Triphasic Mid Superficial femoral artery:97.3 cm/s, phasicity: Triphasic Distal Superficial femoral artery:158 cm/s, phasicity: Triphasic Popliteal artery:88.5 cm/s, phasicity: Triphasic Posterior tibial artery:132 cm/s, phasicity: Monophasic LEFT: Common femoral artery:147 cm/s, phasicity: Triphasic Proximal Profunda femoris artery:89.7 cm/s, phasicity: Monophasic Proximal Superficial femoral artery:132 cm/s, phasicity: Triphasic Mid Superficial femoral artery:162 cm/s, phasicity: Triphasic Distal Superficial femoral artery:113 cm/s, phasicity: Triphasic Popliteal artery:97.3 cm/s, phasicity: Triphasic Posterior tibial artery:131 cm/s, phasicity: Triphasic IMPRESSION RIGHT LOWER EXTREMITY: Peripheral arterial disease of the right lower extremity with moderate stenosis of the proximal superficial femoral artery, monophasic waveform of the right posterior tibial artery, and multifocal areas of mild stenosis in the remaining arteries of the right lower extremity. LEFT LOWER EXTREMITY: Peripheral arterial disease of the left lower extremity with a monophasic waveform of the left proximal profunda artery and multifocal areas of mild stenosis in the remaining arteries of the left lower extremity. Dictated By: Mikki Gates Signed By: <Electronically signed by Mikki Gates in [place]> 07/16/23 1018 DD/ 1330 TD/TT: [place] [employer] Member: Procedure Note Donotuseinterpreter, Image - 07/16/[address] [address] Ultrasound Report Signed Patient: Brook Degroot#: [id number] : 1965Acct:[id number] Age/Sex: 58 / MADM Date: 07/11/23 Loc: HO.US Attending Dr: Garry Patiño MD Ordering Physician: Garry Huggins MD Date of Service: 07/11/23 Procedure(s): US arterial duplex LE BI Accession Number(s): [id number] cc: Garry Huggins MD EXAMINATION: Noninvasive assessment of the bilateral lower extremities with a COMPLETE ARTERIAL DUPLEX exam and ANKLE BRACHIAL INDICES (ABIs). CLINICAL INFORMATION: Bilateral leg pain COMPARISON: None available. TECHNIQUE: Duplex Doppler techniques with waveform analysis and measurement of velocities in the bilateral common femoral, profunda femoris, superficial femoral, popliteal and tibial arteries were performed. The study was performed only at rest. FINDINGS: RIGHT: Common femoral artery:183 cm/s, phasicity: Triphasic Proximal Profunda femoris artery:137 cm/s, phasicity: Triphasic Proximal Superficial femoral artery:217 cm/s, phasicity: Triphasic Mid Superficial femoral artery:97.3 cm/s, phasicity: Triphasic Distal Superficial femoral artery:158 cm/s, phasicity: Triphasic Popliteal artery:88.5 cm/s, phasicity: Triphasic Posterior tibial artery:132 cm/s, phasicity: Monophasic LEFT: Common femoral artery:147 cm/s, phasicity: Triphasic Proximal Profunda femoris artery:89.7 cm/s, phasicity: Monophasic Proximal Superficial femoral artery:132 cm/s, phasicity: Triphasic Mid Superficial femoral artery:162 cm/s, phasicity: Triphasic Distal Superficial femoral artery:113 cm/s, phasicity: Triphasic Popliteal artery:97.3 cm/s, phasicity: Triphasic Posterior tibial artery:131 cm/s, phasicity: Triphasic IMPRESSION RIGHT LOWER EXTREMITY: Peripheral arterial disease of the right lower extremity with moderate stenosis of the proximal superficial femoral artery, monophasic waveform of the right posterior tibial artery, and multifocal areas of mild stenosis in the remaining arteries of the right lower extremity. LEFT LOWER EXTREMITY: Peripheral arterial disease of the left lower extremity with a monophasic waveform of the left proximal profunda artery and multifocal areas of mild stenosis in the remaining arteries of the left lower extremity. Dictated By: Mikki Gaets Signed By: <Electronically signed by Mikki Gates in [place]> 07/16/23 1018 DD/ 1330 TD/TT: [place] [employer] Member: us Garry Patiño MD CV VASCULAR PROCED URES Edited Result - Final [facility] [address] [place] [phone] documented in this encounter Visit Diagnoses Not on filedocumented in this encounter Additional Health Concerns Assessment Noted Time PHQ-9 Depression Total Score: 1 09/14/19 23 10:41 AM EDT documented as of this encounter Care Teams Quality Process Engineer Relationship Specialty Start Date End Date Garry Huggins MD [address] [place] [address] PCP - General Internal Medicine 03/20/19 documented as of this encounter
--- OUTSIDE RECORDS SUMMARY | 2025-04-06 10:27 | XMS_ITS | Clinical Summary ---
Author Organization [employer] Address [address] [facility] 7t [place] [address] Care Team Providers Care Preparation Room Manager Name Role Phone Garry Huggins MD Primary Care Prov ider Allergies No known active allergies Medications * This document contains information received from the source organization and may not represent a complete record from that organization. Alcohol Swabs (Alcohol Pads) 70 % pads 1 applicator 3 times daily. 100 each 11 10/04/19 23 Active cetirizine (ZyrTEC) 10 MG tabletIndicati ons:Nasal sinus congestion Take 1 tablet (10 mg) by mouth in the morning. 30 tablet 11 02/09/20 23 Active traZODone (Desyrel) 50 MG tablet TAKE ONE TABLET EVERY NIGHT AT BEDTIME 30 tablet 01/07/20 24 Active clotrimazole (Lotrimin) 1 % cream APPLY TO THE AFFECTED AREA(S) TWICE DAILY 30 g 2 05/21/20 24 Active cholecalcifero l (Vitamin D-3) 25 MCG tablet TAKE ONE TABLET BY MOUTH EVERY MORNING 90 tablet 03/26/20 25 Active lisinopril 20 MG tablet TAKE ONE TABLET BY MOUTH EVERY MORNING 90 tablet 03/26/20 25 Active metFORMIN (Glucophage) 1000 MG tablet TAKE ONE TABLET BY MOUTH IN THE MORNING AND EVENING WITH MEALS 180 tablet 03/26/20 25 Active tamsulosin (Flomax) 0.4 MG 24 hr capsule Take 1 capsule (0.4 mg) by mouth at bedtime. 90 capsule 03/26/20 25 Active atorvastatin (Lipitor) 40 MG tablet Take 1 tablet (40 mg) by mouth in the evening. 90 tablet 03/26/20 25 Active gabapentin (Neurontin) 400 MG capsule Take 1 capsule (400 mg) by mouth 3 times daily. 270 capsule 3 07/12/19 24 025 Discontinued(Re order (will not trigger notification to Pharmacy)) cholecalcifero l (Vitamin D-3) 25 MCG tablet Take 1 tablet (25 mcg) by mouth in the morning. 90 tablet 3 02/13/20 24 025 Discontinued lisinopril 20 MG tablet TAKE ONE TABLET BY MOUTH EVERY MORNING 90 tablet 1 09/25/19 25 025 Discontinued(Re order (will not trigger notification to Pharmacy)) atorvastatin (Lipitor) 40 MG tablet TAKE 1 TABLET BY MOUTH EVERY DAY IN THE EVENING 90 tablet 12/26/19 25 025 Discontinued(Re order (will not trigger notification to Pharmacy)) tamsulosin (Flomax) 0.4 MG 24 hr capsule TAKE ONE CAPSULE BY MOUTH AT BEDTIME 90 capsule 12/26/19 25 025 Discontinued(Re order (will not trigger notification to Pharmacy)) metFORMIN (Glucophage) 1000 MG tablet TAKE ONE TABLET BY MOUTH IN THE MORNING AND EVENING WITH MEALS 180 tablet 12/26/19 25 025 Discontinued(Re order (will not trigger notification to Pharmacy)) gabapentin (Neurontin) 400 MG capsule TAKE 1 CAPSULE BY MOUTH THREE TIMES A DAY 90 capsule 03/26/20 25 025 Discontinued Active Problems Problem Noted Date Diagnosed Date 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, without long-term current use of insulin 04/05/2025 Assessment & Plan (04/05/2025 9:36 AM EDT): New labs will be ordered for guidance of therapy, continue metformin, follow up in 3 months Anxiety and depression 02/13/2024 Assessment & Plan (02/13/2024 5:15 PM EDT): Will refer to bh, no suicidal/homicidal ideas Primary insomnia 07/25/2023 Assessment & Plan (07/25/2023 11:10 PM EST): Lifestyle modifications discussed, will provide trazodone follow up in 1 month Screening for colon cancer 06/07/2023 Assessment & Plan (02/13/2024 5:14 PM EDT): Lost the cologuard box, will send a new one Assessment & Plan (06/07/2023 8:23 AM EST): Will order cologuard, risk vs benefits discussed Bilateral leg pain 06/07/2023 Assessment & Plan (06/23/2023 12:29 PM EST): Referral placed for vascular surgery evaluation, no tenderness reported Assessment & Plan (06/07/2023 8:32 AM EST): Chronic lower extremity pain, could be related to claudication??? due to history of smoking, other differential could be arthritis, will send a lower ext ultrasound to r/o pad and will refer to vascular surgery Anxiety 02/20/2023 Assessment & Plan (02/20/2023 11:14 AM EDT): Due to recent stressors patient has not been sleeping well, has a lot of anxiety, will refer to , no suicidal/homicidal ideas Cervical myelopathy ([facility]/HCC) 11/01/2022 Assessment & Plan (04/05/2025 9:37 AM EDT): Followed by neurosurgery, no new symptoms Assessment & Plan (07/25/2023 11:08 PM EST): Patient receiving physical therapy, refers is improving, followed also by neurosurgery Assessment & Plan (06/23/2023 12:30 PM EST): Baclofen and gabapentin were renewed, follow up with neurosurgery Assessment & Plan (06/07/2023 8:27 AM EST): Followed by neurosurgery will renew baclofen and gabapentin, he is on oxycodone as well for pain Assessment & Plan (02/20/2023 11:08 AM EDT): Followed by neck specialist, he is pending reevaluation for surgery, he is having a lot pain, will start on tramadol, risk were clearly explained, including risk for fall. Preoperative clearance 10/12/2022 Assessment & Plan (10/12/2022 5:22 PM EDT): Patient was seen for pre-operative evaluation for planned anterior cervical fusion on 10/16/22 under general anesthesia. Patient does no have symptoms of CP at rest or exertion, dyspnea at rest or with exertion, PND, LE edema, claudication, or palpitations. Patient has no hx of ischemic heart disease, CHF, CVD,recent anticoagulant or antithrombotic use, person or family hx of coagulopathy. Patient reports no history of stress test, cardiac cath or coronary revascularization. Patient does have diabetes, he did have recent testing with elevation in the setting of holding medication given he was controlled, last a1c was elevated, currently on medication. I did start patient on trulicity and he will need intraoperative and postoperative management of his diabetes. Of note during our visit he denied any hx of alcohol use or cigarette use, but reviewing notes after visit he does have a hx of heavy drinking, will benefit of monitoring after and assess if he enters in withdrawal I have reviewed recent labs he does have a normal liver and kidney function. Lab Results Component Value Date CREATININE 0.64 (L) 09/17/2022 Lab Results Component Value Date ALT 41 09/17/2022 Lab Results Component Value Date HGBA1C 9.2 (H) 09/17/2022 I spoke with Carlos ROBBINS working with Dr. Elmore, he explained the seriousness of the situation and the risk of not proceeding with intended procedure. Given this the benefits outweight the risk and he can proceed with intended procedure. EKG done in office had significant artifact given patient was no able to sit still, but w/o signs of ACS. Essential hypertension 07/09/2022 Assessment & Plan (04/05/2025 9:38 AM EDT): Told to keep low sodium diet and exercise as tolerated, keep blood pressure log, follow up in 3 months Assessment & Plan (02/13/2024 5:13 PM EDT): Controlled, continue low sodium diet and exercise as tolerated, keep bp log, follow up in 4 months, new labs will be ordered Assessment & Plan (10/23/2023 10:51 PM EDT): Controlled, reinforced low sodium diet and exercise as tolerated, keep current treatment, bp target <130/80 Assessment & Plan (07/25/2023 11:09 PM EST): Controlled, reinforced low sodium diet and exercise as toleraed, continue current therapy Assessment & Plan (06/07/2023 8:22 AM EST): Controlled, continue lisinopril, low sodium diet recommended, bp target <130/80, follow up in 3 months Assessment & Plan (02/20/2023 11:12 AM EDT): Controlled, reinforced low sodium diet, will follow up in 3 months Assessment & Plan (01/15/2023 3:11 PM EDT): Improved, on lisinopril 20mg, he is following diet reccomendations, no changes will be made, new labs ordered Assessment & Plan (09/13/2022 11:24 AM EDT): Not at targer, will increase lisinopril to 20mg, reinforced low sodium diet and exercise as tolerated, keep bp log, will follow up in 1 month with new labs Abnormal liver function tests 03/28/2020 Hyperlipidemia 03/18/2020 Assessment & Plan (04/05/2025 9:38 AM EDT): On atorvastatin, continue lifestyle changes Assessment & Plan (10/03/2022 10:09 AM EDT): Not controlled, he refers taking atorvastatin 40mg daily, will increase dose to 80mg, reviewed side effects, follow up in 2 months Type 2 diabetes mellitus 03/18/2020 Assessment & Plan (02/13/2024 5:13 PM EDT): On metformin 1000mg bid, he refers gained about 20lbs, discussed importance of diet adherance, will order bew labs for guidance of therapy, Will refer for eye exam Assessment & Plan (10/23/2023 10:52 PM EDT): No reported episode of hypoglycemia, on metformin, keep low carb/no sugar diet, follow up in 4 momths Assessment & Plan (07/25/2023 11:09 PM EST): Controlled, A1c 6.4%, continue same therapy Pending eye exam Assessment & Plan (06/07/2023 8:24 AM EST): Controlled, A1c from 01/2023 <7.0% continue low carb diet and metformin Assessment & Plan (02/20/2023 11:12 AM EDT): Controlled, last a1c <7.0%, no changes will be made, will refer to podiatry for foot care Assessment & Plan (01/15/2023 3:12 PM EDT): Much improved, he stopped sugar drinks, candies, today was 6.4%, only on metformin, will leave current therapy Assessment & Plan (10/12/2022 11:32 AM EDT): Uncontrolled. Glucose level elevated at time of visit with a reading of 377 mg/dL. At this point encouraged to continue metformin and will start on Trulicity. Suggested follow up in a week to recheck levels, patient declined. Assessment & Plan (10/03/2022 10:08 AM EDT): Not controlled, reviewed with patient lab results, he refers eating good amounts of candy/sugars daily, discussed diet/lifestyle changes such as decreasing carbohydrates and avoiding sugars, will start on metformin, will follow in 1 month Resolved Problems Problem Noted Date Diagnosed Date Resolved Date Scabies infestation 07/12/2022 10/13/19 Acute cough 06/22/2022 10/12/2022 Assessment & Plan (06/22/2022 12:54 PM EST): Patient was diagnosed with covid on 06/15/22, refers last episode of fever was 5 days ago. He complains of cough/congestion, will start on benzonatate and sudafed for congestion, told to maintain well hydrated, in Case of new episode of fever told to revisit office or ER Congestion of nasal sinus 06/22/2022 Encounters Date Type Department Care Team Description 04/05/2025 9:00 AM EDT Telemedicine [facility] CHC MED & PEDS [address] [place] [address] Garry Huggins MD Screening for colon cancer (Primary Dx); Type 2 diabetes mellitus with hyperglycemia, without long-term current use of insulin (HCC); Prostate cancer screening; Diabetes mellitus due to underlying condition with diabetic polyneuropathy, without long-term current use of insulin (HCC); Cervical myelopathy (CMS/HCC) (HCC); Essential hypertension; Mixed hyperlipidemia 04/05/2025 Travel 03/26/2025 Telephone [facility] MEDICINE [address] [place] [address] Garry Huggins MD Med Refill 03/25/2025 Refill [facility] CHC MED & PEDS [address] [place] [address] Mattie Bustillo MD 03/25/2025 Refill [facility] CH[facility] MED & PEDS [address] [place] [address] Jb Wilder MD 03/24/2025 Refill [facility] CH[facility] MED & PEDS [address] [place] [address] Garry Huggins MD 03/24/2025 Refill [facility] CHC MED & PEDS [address] [place] [address] Jb Wilder MD 01/05/2025 Telephone [facility] WALK-IN CENTER [address] [place], [place] [phone] Saroj Moura MA [employer]olog[employer]gen[employer] (Called patient today for Cologard information. No answer. Message left with details and number.) from Last 3 Months Immunizations Immunization Administration Dates Next Due Influenza injectable quadriv alent IIV4 with preservative 03/20/2019 Influenza injectable quadrivalent preservative f ree 02/20/2023,03/28/2020 Influenza, IIV3, injectable 05/09/2015, 4 Tdap 03/20/2019,06/10/2006 Family History Medical History Relation Name Comments Alcohol abuse Father Relation Name Status Comments Father Social History Tobacco Use Types Packs/Day Years Used Date Smoking Tobacco: Former Cigarettes Passive Smoke Exposure: Never Smokeless Tobacco: Never Tobacco Cessation:Counseling Given: Not Answered Alcohol Use Standard Drinks/Week Comments Yes 0 [...] not to disclose 2021 10:36 AM EDT Last Filed Vital Signs Vital Sign Reading Time Taken Comments Blood Pressure 137/79 10/22/2023 2:58 PM EDT Pulse 83 07/25/2023 2:24 PM EST Temperature 37.1 C (98.7 F) 07/25/2023 2:24 PM EST Respiratory Rate 20 07/25/2023 2:24 PM EST Oxygen Saturation 95% 02/08/2023 3:32 PM EDT Inhaled Oxygen Concentration - - Weight 95.3 kg (210 lb) 07/25/2023 2:24 PM EST Height 182.9 cm (6') 07/25/2023 2:24 PM EST Body Mass Index 28.48 07/25/2023 2:24 PM EST Plan of Treatment Health Maintenance Due Date Last Done Comments CT Colonography 1964 Colonoscopy 1964 Colorectal Cancer Screening 1964 FIT DNA/Cologuard 1964 FIT 1964 FOBT 1964 Sigmoidoscopy 1964 Disability Screening 1964 Eye Exam 02/06/1974 Alcohol/Substance Use Screening 1976 Pneumococcal Vaccine: 50+ Years (1 of 2 - PCV) 02/06/1983 Zoster Vaccines (1 of 2) 02/06/2014 Diabetes: Urine Protein Screening 04/19/2022 04/19/2021 Diabetes: Foot Exam 02/21/2024 02/20/2023, 02/20/2023, 02/20/2023, Additional history exists Tobacco Screening 04/30/2024 04/30/2023 Lipid Panel 09/30/2024 10/01/2023, 08/0 01/2023, 09/17/2022, Additional history exists Diabetes: Hemoglobin A1C 01/13/2025 025, 07/25/2023, 01/15/2023, Additional history exists COVID-19 Vaccine ( - season) 2025 Influenza Vaccine (#1) 2025 , 02/20/2023, 03/28/2020, Additional history exists SDOH Screening 02/12/2025 02/13/2024 Depression Screening 04/05/2026 04/05/2025, 10/27/20 25 DTaP/Tdap/Td Vaccines (3 - Td or Tdap) 03/20/2029 03/20/2019, 06/10/2006 RSV Patients and Patients Aged 60 years or older (1 - 1-dose 75+ series) 02/06/2039 HIV Screening Completed 09/17/2022 Hepatitis C Screening Completed 09/17/2022, 022 HIB Vaccines Aged Out No longer eligi ble based on patient's age to complete this topic HPV Vaccines Aged Out No longer eligi ble based on patient's age to complete this topic Hepatitis A Vaccines Aged Out No long er eligible based on patient's age to complete this topic Hepatitis B Vaccines Aged Out No long er eligible based on patient's age to complete this topic IPV Vaccines Aged Out No longer eligi ble based on patient's age to complete this topic Meningococcal B Vaccine Aged Out No l onger eligible based on patient's age to complete this topic Meningococcal Vaccine Aged Out No javi tu eligible based on patient's age to complete this topic RSV under 20 months Aged Out No longe r eligible based on patient's age to complete this topic Rotavirus Vaccines Aged Out No longer eligible based on patient's age to complete this topic Procedures Procedure Name Priority Date/Time Associated Diagnosis Comments HEMOGLOBIN A1C Routine 07/16/2024 10:30 AM EST LIPID PANEL, STANDARD Routine 10/01/2023 2:17 PM EDT Type 2 diabetes mellitus with hyperglycemia, without long-term current use of insulin ([facility]) HEPATITIS C AB W/REFL TO HCV RNA, QN, PCR Routine 09/17/2022 8:54 AM EDT Essential hypertension HIV 1 RNA, QN PCR W/RFL ESTUARDO (RTI,PI,INTEGRASE) Routine 09/17/2022 8:54 AM EDT Essential hypertension ALBUMIN, RANDOM URINE W/CREATININE Routine 04/19/2021 8:36 AM EST from Last 3 Months or Most Recently Relevant to Health Maintenance Results * Hemoglobin A1c (07/16/2024 10:30 AM EST) Blood Venous blood specimen / Unknown Historical Provider LAB BLOOD ORDERABLES Jessie l Result * Lipid Panel, Standard (10/01/2023 2:17 PM EDT) Triglycerides 74 <150 mg/dL [facility] Comment:Desirable Triglyceri de: less than 150 mg/dLBorderline High Triglyceride 150-199 mg/dLHigh Triglyceride: 200-499 mg/dLVery High Triglyceride: greater than or equal to 5OO mg/dL Cholesterol 136 <200 mg/dL [facility] Comment:Desirable Cholestero l: less than 200 mg/dLBorderline High Cholesterol: 200-239 mg/dLHigh Cholesterol: greater than 239 mg/dL LDL Cholesterol Calculated 77 <100 mg/dL [facility] Comment:Desirable LDL: less than 100 mg/dLNear Optimal/Above Optimal LDL: 110- 129 mg/dLBorderline High LDL: 130-159 mg/dLHigh LDL: 160-189 mg/dLVery High LDL: greater than or equal to 190 mg/dL HDL Cholesterol 45 >40 mg/dL [facility] Comment:Desirable HDL: great er than 40 mg/dL Note: This HDL assay may give artificially low results in patients with liver disease. Blood Venous blood specimen / Unknown 10/01/2023 2:17 PM EDT 10/01/2023 5:31 PM EDT Garry Patiño MD LAB BLOOD ORDERABL ES Final Result [facility] [address] [place] [address] [phone] * HIV-1 RNA, Quantitative, Real-Time PCR with Reflex to Genotype (RTI, PI, Integrase) (09/17/2022 8:54 AM EDT) Pathologist [facility] HIV 1 RNA, QN PCR NOT DETECTED copies/mL [facility], HIV 1 RNA, QN PCR NOT DETECTED Log copies/mL [facility], Comment: REFERENCE RANGE: NOT DETECTED copies/mL NOT DETECTED Log copies/mL This test was performed using Real-Time Polymerase Chain Reaction. Reportable range is 20 to 10,000,000 copies/mL (1.30-7.00 Log copies/mL). 09/17/2022 8:54 AM EDT 09/17/2022 8:55 AM EDT Narrative [facility] - 09/20/2022 7:14 PM EDT FASTING:NO FASTING: NO Garry Patiño MD LAB BLOOD ORDERABL ES Final Result Performing Organization Address [facility] Co de Phone Number [facility] [address], [facility] [place] [address] [facility], [address] [place] [address] * Hepatitis C Antibody with Reflex to HCV, RNA, Quantitative, Real-Time PCR (09/17/2022 8:54 AM EDT) Pathologist [facility] Hepatitis C Antibody NON-REACT BETTYE NON-REACT BETTYE Find[employer] Index 0.08 <1.00 [facility] Comment: HCV antibody was non-reactive. There is no laboratory evidence of HCV infection. In most cases, no further action is required. However, if recent HCV exposure is suspected, a test for HCV RNA (test code 86887) is suggested. For additional information please refer to http://education.Jebbit/faq/UOL48h1 (This link is being provided for informational/ educational purposes only.) Blood Venous blood specimen / Unknown 09/17/2022 8:54 AM EDT 09/17/2022 8:55 AM EDT Narrative [facility] - 09/20/2022 7:14 PM EDT FASTING:NO FASTING: NO Garry Patiño MD LAB BLOOD ORDERABL ES Final Result Performing Organization Address [facility] Co de Phone Number [facility] [address] [place] [address], [place] [address] [facility] [address] [place] [address] * ALBUMIN, RANDOM URINE W/CREATININE (04/19/2021 8:36 AM EST) Microalbumin Urine 0.3 See Note: mg/dL [facility] Comment: Reference Range: Reference Range Not established Microalb/Creat Ratio 4 <30 mcg/mg creat [facility] Comment: The ADA defines abnormalities in albumin excretion as follows: Albuminuria Category Result (mcg/mg creatinine) Normal to Mildly increased <30 Moderately increased 30-299 Severely increased > OR = 300 The ADA recommends that at least two of three specimens collected within a 3-6 month period be abnormal before considering a patient to be within a diagnostic category. Creatinine, Urine 82 20 - 320 mg/dL [facility] 04/19/2021 8:36 AM EST us Garry Patiño MD LAB URINE ORDERABL ES Final Result [facility] [address] from Last 3 Months or Most Recently Relevant to Health Maintenance Insurance [facility] STANDARD [employer] MEDICARE REPLACEMENT Care Teams Preparation Room Manager Relationship Specialty Start Date End Date MansfieldGarry Gallo MD [address] [place] [id number] PCP - General Internal Medicine 03/20/19
--- OUTSIDE RECORDS SUMMARY | 2025-04-06 10:27 | XMS_ITS | Encounter Summary ---
Author Organization [employer] Address [address] [facility] [address] [place] [address] Care Team Providers Care Leather Scrubber Name Role Phone Garry Huggins MD Primary Care Prov ider Reason for Visit * Reason Onset Date Comments Medication Question 05/29/2023 Encounter Details Date Type Department Care Team ([facility] Contact Info) Description 05/29/2023 Telephone [facility] CHC MED & PEDS [address] [place] [address] Garry Huggins MD [address] [place] [address] Medication Question Social History Tobacco Use Types Packs/Day Years [...] encounter Miscellaneous Notes * Telephone Encounter - Dorian Umer - 05/29/2023 3:35 PM EST Tc from [facility] stating pt wants a call from nurses regarding medication gabapentin 400 and Baclofen.Please contact pt at [phone]. documented in this encounter Plan of Treatment Not on file documented as of this encounter Visit Diagnoses Not on filedocumented in this encounter Additional Health Concerns Assessment Noted Time PHQ-9 Depression Total Score: 1 09/14/19 23 10:41 AM EDT documented as of this encounter Care Teams Leather Scrubber Relationship Specialty Start Date End Date Garry Huggins MD [address] [place] [id number] PCP - General Internal Medicine 03/20/19 documented as of this encounter
--- OUTSIDE RECORDS SUMMARY | 2025-04-06 10:27 | XMS_ITS | Encounter Summary ---
Author Organization [employer] Address [address] [facility] [address]t [place] [address] Care Team Providers Care Clinical Statistics Manager Name Role Phone Garry Huggins MD Primary Care Prov ider Encounter Details Date Type Department Care Team ([facility] Contact Info) Description 12/05/2022 Abstract [facility] [address] [place] [address] Garry Huggins MD [address] [place], [place] [phone] Social History Tobacco Use Types Packs/Day Years Used Date Smoking Tobacco: Former Cigarettes Passive Smoke Exposure: Never Smokeless Tobacco: Never Alcohol Use Standard Drinks/Week Comments Yes 0 (1 standard drink = 0.6 oz pur e alcohol) Depression Answer Date Recorded Patient Health Questionnaire-9 Score 1 09/13/2022 Depression Answer Date Recorded Patient Health Questionnaire-2 Score 1 09/13/2022 Sex and Gender Information Value Date Recorded Sex Assigned at Male 04/09/2022 10:36 AM EDT Legal Sex Male 10:36 AM EDT Gender Identity Choose not to disclose 10:36 AM EDT Sexual Orientation Choose not to disclose 2021 10:36 AM EDT COVID-19 Exposure Response Date Recorded In the last 10 days, have yo u been in contact with someone who was confirmed or suspected to have Coronavirus/COVID-19? No / Unsure 11/08/2022 2:33 PM EDT documented as of this encounter Plan of Treatment Not on file documented as of this encounter Visit Diagnoses Not on filedocumented in this encounter Additional Health Concerns Assessment Noted Time PHQ-9 Depression Total Score: 1 09/14/19 23 10:41 AM EDT documented as of this encounter Care Teams Clinical Statistics Manager Relationship Specialty Start Date End Date Garry Huggins MD [address] [place] [phone] PCP - General Internal Medicine 03/20/19 documented as of this encounter
--- OUTSIDE RECORDS SUMMARY | 2025-04-06 10:27 | XMS_ITS | Encounter Summary ---
Author Organization [employer] Address [address] [facility] 7t [place] [address] Care Team Providers Care Permastone Installer Name Role Phone Garry Huggins MD Primary Care Prov ider Reason for Visit * Reason Comments Med Refill Encounter Details Date Type Department Care Team ([facility] st Contact Info) Description 05/09/2023 Refill [facility] MEDICINE [address] [place] [address] Garry Huggins MD [address] [place], [place] [phone] Social History Tobacco Use Types Packs/Day Years [...] documented as of this encounter Care Teams Permastone Installer Relationship Specialty Start Date End Date Garry Huggisn MD [address] [place] [id number] PCP - General Internal Medicine 03/20/19 documented as of this encounter
--- OUTSIDE RECORDS SUMMARY | 2025-04-06 10:27 | XMS_ITS | Encounter Summary ---
Author Organization [employer] Address [address] [facility] 7t [place] [address] Care Team Providers Care Weight Yardage Checker Name Role Phone Garry Huggins MD Primary Care Prov ider Encounter Details Date Type Department Care Team (Latest Contact Info) Description 04/05/2025 Travel Social History Tobacco Use Types Packs/Day Years [...] 04/05/2025 9:04 AM Mary Spain MA * Feeling down, depressed, or hopeless [...] 04/05/2025 9:04 AM Mary Waddell MA * Thoughts that you would be better off or hurting yourself in some way Answer Date of Assessment Author Not at all 04/05/2025 9:04 AM Mary Waddell MA * Patient Health Questionnaire-9 Score Answer Date of Assessment Author 5 04/05/2025 9:04 AM Mary Waddell MA * How difficult have these problems made it for you to do your work, take care of things at home, or get along with other people? Answer Date of Assessment Author Somewhat difficult 04/05/2025 9:04 AM Mary Waddell MA documented as of this encounter Plan of Treatment Not on file documented as of this encounter Visit Diagnoses Not on filedocumented in this encounter Additional Health Concerns Assessment Noted Time PHQ-9 Depression Total Score: 5 04/05/20 25 9:04 AM EDT documented as of this encounter Care Teams Weight Yardage Checker Relationship Specialty Start Date End Date Garry Huggins MD [address] [place] [id number] PCP - General Internal Medicine 03/20/19 documented as of this encounter
--- OUTSIDE RECORDS SUMMARY | 2025-04-06 10:27 | XMS_ITS | Encounter Summary ---
Author Organization [employer] Address [address] [facility] 7t [place] [address] Care Team Providers Care Secretary Name Role Phone Garry Huggins MD Primary Care Prov ider Reason for Visit * Reason Onset Date Comments Verbal Orders 04/29/2023 Encounter Details Date Type Department Care Team ([facility] Contact Info) Description 04/29/2023 Telephone [facility] MEDICINE [address] [place] [address] Garry Huggins MD [address] [place] [address] Verbal Orders Social History Tobacco Use Types [...] 1 to 6 weeks Please call Diane [phone] documented in this encounter Plan of Treatment Not on file documented as of this encounter Visit Diagnoses Not on filedocumented in this encounter Additional Health Concerns Assessment Noted Time PHQ-9 Depression Total Score: 1 09/14/19 23 10:41 AM EDT documented as of this encounter Care Teams Secretary Relationship Specialty Start Date End Date Garry Huggins MD [address] [place] [id number] PCP - General Internal Medicine 03/20/19 documented as of this encounter
--- OUTSIDE RECORDS SUMMARY | 2025-04-06 10:27 | XMS_ITS | Encounter Summary ---
Author Organization [employer] Address [address] [facility] 7t [place] [address] Care Team Providers Care Supervisor [employer] Name Role Phone Garry Huggins MD Primary Care Prov ider Reason for Visit * Reason Onset Date Comments Nurse Triage 06/06/2023 Encounter Details Date Type Department Care Team ([facility] st Contact Info) Description 06/06/2023 Telephone [facility] MEDICINE [address] [place] [address] Garry Huggins MD [address] [place] [address] Nurse Triage Social History Tobacco Use Types Packs/Day Years [...] encounter Miscellaneous Notes * Telephone Encounter - Violeta Jules RN - 06/06/2023 2:39 PM EST Called pt. He states I am trying to be patient but last time I spoke with my PCP, he said he wouldreorder my Gabapentin and Baclofen and they still have not been sent to my Pharmacy. I checked medsand both meds were still in reconciliation folder. I transferred meds to medication folder and sentrequest for refill high priority to PCP. I advised pt. That PCP is not in today but, is in tomorrowam 06/07/23. Pt. Also states that he is waiting for a referral for his neck and back pain (cervicalmyelopathy)and has not heard anything. Appt. Made for 06/07/23 for pt. To speak with PCP about concerns at 1045am. Protocol Used: Neck Pain or Stiffness (Adult) Protocol-Based Disposition: See in Office or Video Visit within 2 Weeks- Televisit made for 06/07/23 at 1045am with PCP. Video visit offer not recorded Positive Triage Question: * Neck pain is a chronic symptom (recurrent or ongoing AND lasting > 4 weeks) * All higher-acuity triage questions were negative Care Advice Discussed: * Reassurance and Education - Neck Pain or Stiffness * Pain Medicines * Pain Medicines - Extra Notes and Warnings * Sleep * Activity * Stretching Exercises * Telephone Encounter - Migue Gould - 06/06/2023 1:50 PM EST Symptom: Foot or Ankle Swelling Outcome: Schedule an urgent appointment (within 1 hour) or talk to a nurse or provider soon Reason: Trouble walking The caller accepted this outcome documented in this encounter Plan of Treatment Not on file documented as of this encounter Visit Diagnoses Not on filedocumented in this encounter Additional Health Concerns Assessment Noted Time PHQ-9 Depression Total Score: 1 09/14/19 23 10:41 AM EDT documented as of this encounter Care Teams Supervisor [employer] Relationship Specialty Start Date End Date Garry Huggins MD [address] [place] [id number] PCP - General Internal Medicine 03/20/19 documented as of this encounter
--- OUTSIDE RECORDS SUMMARY | 2025-04-06 10:27 | XMS_ITS | Encounter Summary ---
Author Organization [employer] Address [address] [facility] 7t [place] [address] Care Team Providers Care Manager [place] Name Role Phone Garry Huggins MD Primary Care Prov ider Reason for Visit * Reason Onset Date Comments Med Refill 06/05/2023 Encounter Details Date Type Department Care Team ([facility] Contact Info) Description 06/05/2023 Telephone [facility] MEDICINE [address] [place] [address] Garry Huggins MD [address] [place] [address] Med Refill Social History Tobacco Use Types [...] as of this encounter Care Teams Manager [place] Relationship Specialty Start Date End Date Garry Huggins MD [address] [place] [id number] PCP - General Internal Medicine 03/20/19 documented as of this encounter
[2025-04-06 14:30] LABS: MANUAL DIFF FLAG NO
[2025-04-06 14:34] LABS: Hematocrit 41.0 % (42.0-52.0); Hemoglobin 13.6 g/dl (14.0-18.0); Imm Gran Abs Auto 0.01 X10*3/uL (0.00-0.03); Imm Gran Pct Auto 0.1 % (0.0-0.4); Lymphocytes Absolute Auto 2.4 X10*3/uL (1.2-4.9); Mean Corpuscular HGB Conc 33.2 g/dl (31.0-36.0); Mean Corpuscular Hemoglobin 29.6 pg (27.0-33.0); Mean Corpuscular Volume 89.3 fL (80.0-98.0); NRBC Abs Auto 0.000 X10*3/uL (0.0-0.012); NRBC Pct Auto 0.0 /100WBC (0.0-0.2); Platelet Count 278 X10*3/uL (160-400); Red Blood Count 4.59 X10*6/uL (4.60-5.80); White Blood Count 7.4 X10*3/uL (4.8-10.8)
[2025-04-06 14:44] LABS: Alanine Aminotransferase 12 U/L (0-40); Albumin Level 4.6 g/dL (3.5-5.0); Alkaline Phosphatase 67 U/L (39-117); Anion Gap 13 (12-20); Aspartate Amino Transferase 29 U/L (5-37); Blood Urea Nitrogen 21 mg/dL (9-16); Calcium 10.2 mg/dL (8.4-10.2); Carbon Dioxide 27 mmol/L (22-29); Chloride 103 mmol/L (96-108); Cholesterol 119 mg/dL (<200); Estimated Glomerular Filt Rate > 60; HDL Cholesterol 37 mg/dL (>40); Potassium 4.2 mmol/L (3.3-5.1); Sodium 139 mmol/L (135-145); Total Protein 7.6 g/dL (6.5-8.0); Triglycerides 92 mg/dL (<150)
[2025-04-06 14:55] LABS: PSA,Total (Free>4and<10) 1.71 ng/mL (0.00-4.00)
[2025-04-06 15:14] LABS: Microalbum/Creatinine Ratio Ur 9.0 ug/mg cr (<30)
== END 2025-04-06 09:20 | disposition home or self-care (01) ==
LOC: HO.CHCLDS 09:19
PROVIDERS: Visit Provider Internal Medicine
DX: Z12.5 Encounter for screening for malignant neoplasm of prostate (principal); E11.65 Type 2 diabetes mellitus with hyperglycemia
CPT/HCPCS: 36415; 80053; 80061; 82043; 82570; 83036; 84153; 84443; 85025

== ENCOUNTER 2025-05-04 10:36 | Outpatient (AMB) | payer MEDICARE, MEDICAID, SELFPAY ==
--- NOTE | 2025-05-04 10:37 | A.OFFVIS_ITS ---
Vital Signs 05/04/25 10:45 Height 6 ft 1 in Weight 195 lb BMI 25.7 BP 166/89 H Blood Pressure Location Lt brachial Position Sitting Pulse 74 Pulse Source Pulse Oximeter Pulse Oximetry (%) 97 Oxygen Delivery Method Room Air Intake Visit Reasons: CEVICAL MYELOPATHY Intake Note: Pain today -01/17 Coating Line Worker Required: No Accompanied by: Self / Same As Patient Allergies Seasonal Allergy (Mild, Uncoded 10/28/23 13:57) Sneezing HPI Comments Details: The patient is a 60 year old male presenting for evaluation of chronic neck pain with cervical myelopathy and radiculopathy. The patient has a history of chronic neck pain for over 20 years, with history of cervical corpectomy and anterior cervical fusion for treatment of multilevel cervical myelopathy in 2022. He reports persistent neck pain, leg weakness and imbalance issues. The patient also has a history of bilateral chronic leg weakness, back pain, and urinary incontinence. A cervical myelogram was attempted in 2022 but was unsuccessful due to difficulty with the lumbar puncture through [facility] [place] [place] [facility] and was sent to [facility] for decompressive surgery with ongoing symptoms. Past medical history is also significant for bilateral hip fractures secondary to steroid use, which were treated with bilateral hip arthroplasties. The patient reports having tried physical therapy and injections in the past for pain. The patient takes bbuf-kec-hoviaco NSAIDs, which cause stomach discomfort, and has a prescription for Baclofen which the patient has not been taking. The patient tried gabapentin in the past but reports it caused sickness. The patient has a history of prediabetes with a recent A1C of 5.7 and has been managing it by reducing beer intake. The patient lives with a girlfriend who provides assistance. The patient is on permanent disability, smokes one pack of cigarettes per day, and occasionally drinks beer, with a history of alcohol abuse. - Onset and Timing: The patient reports chronic pain for over 20 years, which is constant and most severe in the morning, rated 8/10. - Quality and Character: The pain is described as aching, numbness, tingling, stabbing, pulsing, throbbing, sharp, and shooting. - Location and Radiation: The primary location is the neck, with radiation to both shoulders, arms, legs, and occasionally the face. - Associated Symptoms: The patient experiences neck spasms described as a locking sensation. - Exacerbating Factors: Pain is worsened by walking, climbing, bending, lifting, and looking sideways and up. - Relieving Factors: Lying down with the feet up provides some relief. - Interference with Function: The pain affects walking, climbing, bending, and lifting. - Functional Limitation: The patient can only walk for 5-9 minutes before needing to sit down due to both pain and weakness. - Analgesia: Current pain is rated 8/10 in the morning. - Analgesia: The patient uses ewlb-vcs-uvtlvco medications such as Aleve and Motrin. - Analgesia: Past trials include physical therapy, injections, and gabapentin, which was stopped due to side effects. - Adverse Effects: Reports stomach discomfort from frequent NSAID use. - Affect: The patient expresses significant distress due to pain and functional decline, stating, I'm dying. - If I don't get going, I'm going to . Patient requests opioid medication, reports oxycodone has been most effective. Per [facility] review, last oxycodone refill was received by patient on 05/18/2023 #40 tablets. Has been on gabapentin until 06/2024. - Activities of Daily Living: The patient is on permanent disability and can only walk for about 5-9 minutes before needing rest. - Activities of Daily Living: Pain interferes with walking, climbing, bending, and lifting. - Aberrant Drug-Related Behaviors: The patient has not been taking prescribed baclofen. - Aberrant Drug-Related Behaviors: No other signs of aberrant behaviors were noted; the patient was informed that the clinic does not prescribe opioids. [facility] Medical History Erectile dysfunction Hyperlipidemia associated with type 2 diabetes mellitus Type 2 diabetes mellitus Fusion of spine, cervical region High cholesterol HTN (hypertension) Urinary incontinence Spinal cord injury, cervical region Diabetes ETOH abuse Unspecified lack of coordination Lumbar radiculopathy Surgical History Hx of hand surgery Hx of total hip arthroplasty History of back surgery Social History Household Members: Significant Other Housing: Apartment Do you presently have visiting nurse or other home services: No Alcohol intake: current Alcohol intake frequency: holidays/special occasions only Comment: 1 assist standby Patient Tobacco Use Status: Former Tobacco user Tobacco use type: Cigarette Years Smoked: 20 service: No Current occupational status: unemployed Review of Systems Const Details: - Neurological: Reports chronic neck pain with radiation to the shoulders, arms, and legs, characterized as aching, numbness, tingling, stabbing, and shooting. - Neurological: Reports chronic daily headaches and bilateral leg weakness. - Musculoskeletal: Reports back pain and pain in both shoulders. - Musculoskeletal: Reports neck spasms and generalized muscle loss, including in the arms. - Genitourinary: Reports urinary incontinence. - Gastrointestinal: Reports stomach upset from taking too many NSAIDs. Denies gastric ulcers. All systems reviewed & are unremarkable except as noted in HPI and below Physical Exam Vital Signs: Last Vital Signs Pulse 74 05/04/25 10:45 BP 166/89 H 05/04/25 10:45 Pulse Ox 97 05/04/25 10:45 Oxygen Delivery Method Room Air 05/04/25 10:45 BMI result Body Mass Index 25.7 General: Appears afebrile. Alert and oriented. Mood and affect appropriate. Follows and participates in conversation appropriately. Respiratory effort is unlabored. No cough. Able to transition from sit to stand unassisted. Ambulates with antalgic, slow gait, uses walker, reports BLE weakness, right>left. Neck Other: Patient with decreased cervical ROM in all planes with increased pain with cervical extension and lateral rotations. Elvey's tension test negative bilaterally. Lhermitte's test was negative. Patient demonstrated 5/5 motor strength of bilateral upper extremities. 2 + radial pulses. Neck: Yes no lymphadenopathy, Yes supple, No anterior neck swelling, No no JVD, No prominent supraclavicular fat pad and No prominent dorsocervical fat pad Back/Spine/Pelvis Cervical Spine: No Lhermitte's sign positive, loss of normal cervical lordosis, cervical muscular tenderness, pain with cervical ROM, Cervical spine scars present and No Cervical spine tenderness Thoracic/Lumbar Spine: thoracic and lumbar spine normal to inspection, No Thoracic/lumbar spine scar(s), Lasegue's sign negative, straight leg raise negative bilaterally, pain with thoraco-lumbar ROM, thoraco-lumbar ROM limited, No thoracic spinal tenderness and No lumbar spinal tenderness Extrem Right upper extremity: shoulder/upper arm (Limited ROM due to pain, difficulty with overhead reaches) Details: normal to inspection, tenderness Location: of the A-C joint and over the subacromial bursa and crepitus; no swelling, no ecchymosis, no deformity and no unusual warmth Left upper extremity: shoulder/upper arm (Limited ROM due to pain, Painful arc syndrome) Details: inspection abnormal, tenderness Location: of the A-C joint, of the scapula and over the subacromial bursa and crepitus; no swelling, no ecchymosis and no unsual warmth Results Reviewed Results Reviewed: CT SPINE LUMBAR without CONTRAST 03/05/23 [facility] INDICATION: Back pain, leg weakness, disease of spinal cord. TECHNIQUE: CT of the lumbar spine was performed without intravenous or intrathecal contrast. Sagittal and coronal reconstructions were generated. Automated mA/kV exposure control was utilized and patient examination was performed in strict accordance with principles of ALARA. RADIATION AMOUNT: 924.1 mGy-cm. COMPARISON: None available. FINDINGS: Normal alignment of the lumbar vertebral bodies. The vertebral bodies are of normal height. There is endplate sclerosis and loss of intervertebral disc space height with intervertebral disc space vacuum phenomena and marginal osteophyte formation at L3-L4, L4-L5 and L5-S1. Lumbar facet arthrosis. No findings of sacral fracture. Heavy atherosclerosis of the abdominal aorta without aneurysm. No acute paraspinal abnormality is identified. No findings of sacral fracture. Examination through the L1-L2 intervertebral level revealing mild facet arthrosis. No significant central stenosis or foraminal narrowing. Examination through the L2-L3 intervertebral level revealing mild facet arthrosis. Prominence of ligamentum flavum. Small posterior disc osteophyte. Moderate central stenosis. Mild bilateral lateral recess encroachment. No significant RIGHT foraminal narrowing. Mild LEFT foraminal narrowing. Examination through the L3-L4 intervertebral level revealing facet arthrosis. Hypertrophic changes of the facets and prominence of ligamentum flavum. Posterior disc osteophyte. There is a moderate central stenosis with bilateral lateral recess encroachment. Moderate bilateral foraminal narrowing. Examination through the L4-L5 intervertebral level revealing facet arthrosis. Prominence of ligamentum flavum. Posterior disc osteophyte. Moderate central stenosis. Bilateral lateral recess encroachment. Moderate RIGHT foraminal narrowing. Mild to moderate LEFT foraminal narrowing. Examination through the L5-S1 intervertebral level revealing facet arthrosis. Posterior disc osteophyte. Mild associated central stenosis. Bilateral lateral recess encroachment. Moderate to severe LEFT foraminal narrowing. Moderate RIGHT foraminal narrowing. IMPRESSION: Spondylotic changes and facet arthrosis. No findings of fracture or significant listhesis. No suggestion of an acute disc protrusion. Varying degrees of relative chronic appearing central stenosis and foraminal narrowing as detailed above. No priors are available for comparison. MR THORACIC SPINE WITHOUT CONTRAST 01/21/23 [facility] CLINICAL INFORMATION: Patient complains of back pain and bilateral leg weakness. History prior cervical spine surgery. Please evaluate for cord abnormality or disc herniation. TECHNICAL INFORMATION: Axial T1, axial T2, sagittal T1, sagittal T2, sagittal STIR. ENCOUNTER: Initial COMPARISON: None INTERPRETATION: There is normal signal noted within the thoracic cord. There are normal vertebral body heights. No bone marrow edema is seen. At the T9-T10 level, there is a small central disc protrusion which mildly indents the thecal sac. The neural foramen are patent. At the T10-T11 level, there is a tiny central disc protrusion which minimally indents the thecal sac. The neural foramen are patent. Graft no other disc herniation, spinal canal narrowing or neural foraminal narrowing is seen. There is no evidence of any muscle edema or atrophy involving the visualized paraspinal muscles. CONCLUSION: 1. There is no evidence of any cord signal abnormality or syrinx. 2. T9-T10: Small central disc protrusion. 2. T10-T11: Small central disc protrusion. MR THORACIC SPINE WITHOUT CONTRAST CLINICAL INFORMATION: BILAT LEG WEAKNESS COMPARISON: None available. TECHNIQUE: MRI of the thoracic spine was obtained using routine sequences without contrast. FINDINGS: There are 12 rib bearing thoracic type vertebral bodies. Thoracic alignment is maintained. Small chronic endplate Schmorl''s nodes at the lower thoracic levels. There is no bone marrow edema. There are no acute fractures. Thoracic cord morphology is normal. Vertebral body heights overall maintained. Conus terminates at the L1 level. Poorly imaged postoperative changes and multilevel central canal stenosis within the cervical spine, better characterized and difficult compared to the September 10, 2022 cervical spine MRI. Small paracentral disc protrusions at T9-T10 and T10-T11 mildly narrow the central canal. There is no severe central canal stenosis within the thoracic spine. Disc osteophyte and hypertrophic facet arthropathy result in moderate right T9-T10 and moderate to severe left T10-T11 bony foraminal stenosis. IMPRESSION: - Small paracentral disc protrusions at T9-T10 and T10-T11 mildly narrow the central canal. There is no severe central canal stenosis within the thoracic spine. Disc osteophyte and hypertrophic facet arthropathy result in moderate right T9-T10 and moderate to severe left T10-T11 bony foraminal stenosis. - Poorly imaged postoperative changes and multilevel central canal stenosis within the cervical spine, better characterized and difficult compared to the September 10, 2022 cervical spine MRI. MR CERVICAL SPINE WITHOUT CONTRAST 01/11/23 [facility] CLINICAL INFORMATION: Patient complains of neck pain. History of prior surgery. TECHNICAL INFORMATION: Sagittal T2, sagittal T1. ENCOUNTER: Subsequent COMPARISON: 09/10/2022 INTERPRETATION: Patient was unable to complete the examination due to inability to lie flat or sterile. Again seen is straightening of usual cervical lordosis. There is suggestion of possible cord atrophy at the C3-C4 and C4-C5 level although patient motion limits full evaluation. There is possible partial laminectomy changes at these levels as well although difficult to assess without the axial imaging. There is now metallic artifact at C3-C4 and C4-C5 levels secondary to surgical hardware and post discectomy and fusion changes. This limits full evaluation. Again seen is the fusion of C5 and C6. There is now a postsurgical fusion device creating metallic artifact at the C6- C7 level. At the C7-T1 level, minimal disc bulge may be present. No definite significant canal narrowing is noted. The foramen cannot be fully assessed without axial imaging. There are normal vertebral body heights. No bone marrow edema is seen. C1 is intact upon C2. CONCLUSION: 1. The patient could not complete the examination due to inability to lay flat and hold still. Only the sagittal T2 sequence was able to obtain diagnostic information. 2. There is been interval postsurgical discectomy, fusion and possible partial laminectomy changes at the C3-C4 and C4-C5 level. 3. There appears to be significant cord atrophy from C3-C4 to C4-C5 although patient motion limits full evaluation of the cord. 4. There are new postsurgical discectomy and fusion changes suggested at the C6- C7 level. 5. Unchanged fusion changes of the C5 and C6 vertebral bodies. 6. Minimal disc bulge at C7-T1. 7. Follow-up imaging might be of further value with the patient is more comparable to perform the exam. Assessment & Plan Assessment & Plan (1) Cervical post-laminectomy syndrome: Code(s): M96.1 - Postlaminectomy syndrome, not elsewhere classified Category: Medical (2) Muscle spasms of neck: Code(s): M62.838 - Other muscle spasm Category: Medical (3) Status post cervical spinal fusion: Code(s): Z98.1 - Arthrodesis status Category: Surgical (4) Cervical post-laminectomy syndrome: Code(s): M96.1 - Postlaminectomy syndrome, not elsewhere classified Category: Medical (5) Muscle spasms of neck: Code(s): M62.838 - Other muscle spasm Category: Medical (6) Bilateral shoulder pain: Code(s): M25.511 - Pain in right shoulder; M25.512 - Pain in left shoulder Category: Medical Plan A prescription for Baclofen will be reordered, with instructions for the patient to take it twice a day to achieve a therapeutic effect for muscle spasms. The batsheva paz was informed that this office does not prescribe opioids. For interventional management, the plan is to tenantively proceed with bilateral diagnostic C4, C5, and C6 medial branch blocks with local and fluoroscopy. This is to determine if the patient is a candidate for a subsequent radiofrequency ablation procedure, which could provide longer-term pain relief. We also discussed neuromodulation for a longer term pain management. Orders will be placed for neck and shoulder X-rays. A referral will be made for physical therapy at the [place] location for the patient's neck and shoulders. All questions and concerns have been answered and patient agreed with the treatment plan. Follow up for xray results and sooner as needed. Patient was informed and verbally consented to the use of an ambient scribe for clinic note documentation during this visit. Orders: Orders XR Shoulder Vince min 2V 05/04/25 M25.511 - Pain in right shoulder, M25.512 - Pain in left shoulder XR cervical spine 4V 05/04/25 G95.9 - Disease of spinal cord, unspecified, M62.838 - Other muscle spasm, M96.1 - Postlaminectomy syndrome, not elsewhere classified, Z98.1 - Arthrodesis status PT Evaluation and Treatment 05/04/25 G95.9 - Disease of spinal cord, unspecified, M25.511 - Pain in right shoulder, M25.512 - Pain in left shoulder, M62.838 - Other muscle spasm, M96.1 - Postlaminectomy syndrome, not elsewhere classified, Z98.1 - Arthrodesis status Medications: New baclofen 10 mg PO BID 60 tabs 1RF muscle spasm G95.9 - Disease of spinal cord, unspecified, M62.838 - Other muscle spasm, M96.1 - Postlaminectomy syndrome, not elsewhere classified Coding Level of Care Code New Pt Level 4 (83226) Diagnoses Cervical post-laminectomy syndrome M96.1 Muscle spasms of neck M62.838 Status post cervical spinal fusion Z98.1 Bilateral shoulder pain M25.511; M25.512
[2025-05-04 10:45] VITALS: BP 166/89; PULSE 74; O2SAT 97; BMI 25.7
== END 2025-05-04 11:20 | disposition home or self-care (01) ==
LOC: HO.PMC 10:37
PROVIDERS: PCP Internal Medicine; Visit Provider Nurse Practitioner Family
DX: M96.1 Postlaminectomy syndrome, not elsewhere classified (principal); M62.838 Other muscle spasm; Z98.1 Arthrodesis status; M25.511 Pain in right shoulder; M25.512 Pain in left shoulder
CPT/HCPCS: 99204

== ENCOUNTER → 2025-05-04 10:36 | Outpatient (BNVA) | payer MEDICARE, MEDICAID, SELFPAY | PROVIDERS: PCP Internal Medicine; Visit Provider Nurse Practitioner Family | DX: M96.1 Postlaminectomy syndrome, not elsewhere classified (principal); M62.838 Other muscle spasm; Z98.1 Arthrodesis status; M25.511 Pain in right shoulder; M25.512 Pain in left shoulder | CPT/HCPCS: 99202 ==